=== PATIENT | female | born 1980 | race Caucasian/White ===

== ENCOUNTER 2019-10-27 12:43 | Outpatient (CLI) | payer BC, SELFPAY ==
--- NOTE | ~2019-10-27 | MMUS_ITS ---
EXAMINATION: MM diagnostic keturah BI w lary, US breast BI limited HISTORY: Palpable lump in the upper inner quadrant of the right breast. TECHNIQUE: Craniocaudal, mediolateral, and mediolateral oblique 3-D tomosynthesis images of the malu ts were performed and synthetic 2-D images were generated. CAD analysis was submitted and interpreted . High resolution limited bilateral breast ultrasound was performed. COMPARISON: 07/10/2015, 08/18/2012 BREAST PARENCHYMAL COMPOSITION: The breasts are heterogeneously dense, which may obscure small masses . FINDINGS: MAMMOGRAPHIC FINDINGS: Left breast: There is a 7 mm low-density, obscured mass in the middle third of the lower breast at th e 6:00 location 6 cm from the nipple. No suspicious calcification or architectural distortion are ann ntified. Right breast: No mammographic correlate is identified for the reported palpable lump of the upper inn er breast. Calcifications in the middle third of the upper outer quadrant of the breast 5 cm from the nipple aren't somewhat amorphous on the craniocaudal view and linear on the mediolateral view, consi stent with milk of calcium. ULTRASOUND: Left breast: There is a 5 mm x 3 mm oval, circumscribed, parallel, hypoechoic mass with no posterior features or internal vascularity at the 6:00 location 4 cm from the nipple. Masses with similar sonog raphic features measure 4 mm x 2 mm at the 6:00 location 2 cm from the nipple, 3 mm x 2 mm at the 6:0 0 location 5 cm from the nipple, and 5 mm x 2 mm at the 6:00 location 3 cm from the nipple. Right breast: There is a 4 mm x 2 mm oval, circumscribed, parallel, hypoechoic mass with no posterior features or internal vascularity at the 1:00 location 3 cm from the nipple. IMPRESSION: 1. Probably benign bilateral breast masses as detailed above including one in the area of the right b reast lump. 2. Recommend 6 month follow-up bilateral diagnostic mammogram and ultrasound. BI-RADS category 3, probably benign findings. Reviewed, dictated and finalized at location A. IMPRESSION: 1. Probably benign bilateral breast masses as detailed above including one in t he area of the right breast lump. 2. Recommend 6 month follow-up bilateral diagnostic mammogram and ultrasound. BI-RADS category 3, probably benign findings.
== END 2019-10-27 12:44 | disposition home or self-care (01) ==
LOC: ANHIMG 12:46
PROVIDERS: PCP Internal Medicine; Visit Provider Obstetrics & Gynecology
DX: N63.10 Unspecified lump in the right breast, unspecified quadrant (principal); R92.8 Other abnormal and inconclusive findings on diagnostic imaging of breast
CPT/HCPCS: 76642; 77062; 77066; G0279

== ENCOUNTER 2019-12-23 17:47 | Emergency (ER) | payer BC, SELFPAY ==
[2019-12-23 18:32] VITALS: BP 133/87; PULSE 85; RESP 18; TEMP 36.6; O2SAT 97
[2019-12-23] MEDS: MAG HYDROX/ALUMINUM HYD/SIMETH 30 ML, PHENobarb/HYOSCY/ATROPINE/SCOP 32.4 MG, LIDOCAINE... PO (18:53)
[2019-12-23] MEDS: ONDANSETRON HCL ODT 4 MG TABLET PO (18:53)
--- NOTE | 2019-12-23 19:13 | ED.ABDPAIN ---
HPI - Abdominal Pain General Chief Complaint: Abdominal Pain Stated Complaint: pain in upper abd Source: patient Mode of arrival: ambulatory Limitations: no limitations History of Present Illness HPI narrative: This is a 39-year-old female with history of reflux disease currently taking [id number] medication for reflux, presents with some increased epigastric abdominal discomfort with some nausea worse with food, currently there is no radiation of her pain nor of the lower abdominal pain no dysuria no fever or chills no chest pain or pressure no shortness of breath. MD elicited complaint: abdominal pain Onset (ago): day(s) Pain Consistency: intermittent Location: epigastric Severity: moderate Quality: fullness Radiation: epigastric Migration to: no migration Exacerbating factors: eating Related Data Home Medications Medication Instructions Recorded Confirmed duloxetine 60 mg PO DAILY 12/23/19 12/23/19 topiramate 25 mg PO DAILY 12/23/19 12/23/19 verapamil 180 mg PO DAILY 12/23/19 12/23/19 Allergies Allergy/AdvReac Type Severity Reaction Status Date / Time paroxetine Allergy Unknown rash Verified 06/17/15 09:59 sertraline Allergy Unknown rash Verified 06/17/15 09:59 Review of Systems Review of Systems: All systems reviewed & are unremarkable except as noted in HPI and below PMFSH Past Medical History Medical History GERD (gastroesophageal reflux disease) Family History Family History Other Acute myocardial infarction Family history of Alzheimer's disease Family history of anemia Family history of arthritis Family history of cardiovascular disease Family history of lung cancer Family history of malignant neoplasm Family history of obesity Family history of osteoporosis Hypertension Social History Social History Smoking status: Never smoker Alcohol intake: never Exam Const: General: cooperative, healthy appearing, comfortable, no acute distress and well developed HENMT: Head: normal to inspection Eyes: General: appearance normal, both eyes and all related structures Eyelids: eyelids normal Conjunctivae: conjunctivae normal Sclera: sclerae normal Pupils: Equal, round and reactive pupils present Neck: Neck: normal visual inspection, full ROM, no lymphadenopathy and no meningeal signs Chest: Chest palpation & inspection: normal inspection of the chest and normal palpation of entire chest wall Resp: Effort & Inspection: normal respiratory effort and able to speak in complete sentences Auscultation: clear to auscultation bilaterally Cardio: Jugular venous distension: no JVD Palpation: normal PMI Rate: regular rate Rhythm: regular rhythm Heart sounds: S1 normal heart sound present and S2 normal heart sound present GI: Inspection: normal to inspection and obesity GI Palp: Yes abdominal tenderness ( epigastric tenderness) Percussion: Yes normal to percussion Auscultation: normal bowel sounds Back/Spine/Pelvis: Back: no CVA tenderness Neuro: General: oriented to person, oriented to place, oriented to time and patient oriented x3 Psych: Appearance: grossly normal and well kempt Mental Status: mental status grossly normal Affect: normal affect Course Course Emergency Course: patient received a GI cocktail along with Zofran and her epigastric tenderness had subsided significantly. Vital Signs Vital signs: Vital Signs Temperature 36.6 C 12/23/19 18:32 Pulse Rate 85 12/23/19 18:32 Respiratory Rate 18 12/23/19 18:32 Blood Pressure 133/87 12/23/19 18:32 Pulse Oximetry 97 12/23/19 18:32 Temperature 36.6 C 12/23/19 18:32 Pulse Rate 85 12/23/19 18:32 Respiratory Rate 18 12/23/19 18:32 Blood Pressure 133/87 12/23/19 18:32 Pulse Oximetry 97 12/23/19 18:32 [facility]
[2019-12-23 19:16] VITALS: BP 138/104; PULSE 78; RESP 18; O2SAT 98
[2019-12-23] MEDS: PANTOPRAZOLE 40 MG TABLET PO (19:29)
== END 2019-12-23 19:31 | disposition home or self-care (01) ==
PROVIDERS: Emergency Provider Emergency Medicine; PCP Internal Medicine
DX: K21.9 Gastro-esophageal reflux disease without esophagitis (principal)
CPT/HCPCS: 99283; A9270

== ENCOUNTER 2019-12-24 07:50 | Observation (INO) | payer BC, SELFPAY ==
[2019-12-24] VITALS (7 sets, daily range): BP systolic 126–145; BP diastolic 81–95; PULSE 69–95; RESP 16–18; TEMP 36.2–36.7; O2SAT 98–100; BMI 38.0
--- NOTE | ~2019-12-24 | US_ITS ---
US venous doppler [facility] DATE: 12/25/2019 08:15 INDICATION: Splenic infarct TECHNIQUE: Real-time and color flow imaging and Doppler analysis of the veins of the lower extremitie s COMPARISON: None FINDINGS: The greater saphenous veins are patent. There is spontaneous and phasic flow and normal aug mentation and color flow signal and normal compression of the deep veins of both lower extremities. IMPRESSION: No evidence of deep venous thrombosis of the lower extremities Reviewed, dictated and finalized at Location [facility]. Reviewed, dictated and finalized at location A.
--- NOTE | ~2019-12-24 | CT_ITS ---
EXAMINATION: CTA chest PE protocol DATE: 12/25/2019 07:57 INDICATION: Splenic infarct. Past smoker. TECHNIQUE: Computed tomography angiography (CTA) of the chest was performed with 100 mL Omnipaque-350 intravenous contrast timed to evaluate the pulmonary arteries. Coronal maximum intensity projection 3D-reconstructions were created by the technologist. Automated exposure control and iterative reconst ruction technique were employed. Exam dose: 538.54 mGy-cm total exam DLP. COMPARISON: None. FINDINGS: There is moderate contrast enhancement of the pulmonary arteries and no evidence of pulmona ry embolism. No thoracic aortic aneurysm or dissection. Normal heart size. No pericardial or pleural effusion. No hilar or mediastinal mass lesion or lymphadenopathy. Small calcified right lower lobe pulmonary granuloma. Small calcified left lower lobe pulmonary granu melia. No pulmonary consolidation or pulmonary mass lesion is evident. Included skeletal structures are unremarkable. IMPRESSION: No evidence of pulmonary embolism Reviewed, dictated and finalized at [facility]. Reviewed, dictated and finalized at location A.
--- NOTE | ~2019-12-24 | CT_ITS ---
EXAMINATION: CT abdomen pelvis w con DATE: 12/24/2019 11:43 INDICATION: Abdominal pain TECHNIQUE: Computed tomography (CT) of the abdomen and pelvis was performed . with 100 mL Omnipaque-3 50 intravenous contrast. Automated exposure control and iterative reconstruction technique were emplo yed. The dose-length product was 1398.44 mGy-cm. COMPARISON: None FINDINGS: A couple 3-4 mm right lower lobe nodules heart size is normal. No pericardial or pleural effusion. Li tip, gallbladder pancreas, bilateral adrenal glands and left kidney are normal. Duplicated right heriberto l collecting system which appears to fuse at the level of the extrarenal pelvis. Small and more cauda l accessory right renal artery and vein supplying the lower pole moiety the right kidney. Geographic region of hypoperfusion along the cephalad aspect of the spleen consistent with splenic infarct. Von ls including the appendix are normal. Bladder, anteverted uterus and bilateral adnexa are normal. Low density likely contraceptive ring in the vaginal vault. No free intraperitoneal gas or fluid. No pat hologically enlarged abdominal or pelvic lymphadenopathy. IMPRESSION: 1. Segmental infarct of the spleen. 2. 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 Reviewed, dictated and finalized at location A.
[2019-12-24 08:17] LABS: Basophils Absolute Auto 0.1 K/mm3 (0.0-0.1); Basophils Percent Auto 0.7 % (0.2-1.2); Eosinophils Absolute Auto 0.2 K/mm3 (0-0.3); Eosinophils Percent Auto 2.4 % (0-4.4); Hematocrit 42.4 % (37.0-47.0); Hemoglobin 13.9 g/dL (12.0-15.0); Immature Granulocyte Absolute 0.02 K/mm3 (0.00-0.031); Immature Granulocyte Percent A 0.3 % (0-0.5); Lymphocytes Absolute Auto 1.78 K/mm3 (0.9-3.2); Lymphocytes Percent Auto 26.6 % (18.3-44.2); Mean Corpuscular HGB Conc 32.8 g/dl (32-36); Mean Corpuscular Hemoglobin 31.7 pg (26-34); Mean Corpuscular Volume 96.8 fl (80-100); Mean Platelet Volume 9.2 fl (7.4-10.4); Monocytes Absolute Auto 0.4 K/mm3 (0.1-0.6); Monocytes Percent Auto 5.2 % (2.6-8.5); Neutrophils Absolute Auto 4.3 K/mm3 (1.3-6.7); Neutrophils Percent Auto 64.8 % (45.5-73.1); Platelet Count Result 234 k/mm3 (150-375); Red Blood Count 4.38 M/mm3 (4.2-5.4); Red Cell Distribution Width 12.2 % (11.5-14.5); White Blood Count 6.7 K/mm3 (4.5-10.0)
[2019-12-24 08:22] LABS: Add Urine Microscopic? YES; Appearance Urine Cloudy (Clear); Bacteria Urine Trace /hpf; Bilirubin Urine Negative (Negative); Blood Urine Negative (Negative); Color Urine Yellow (Yellow); Glucose Urine UA Negative (Negative); Hyaline Casts Urine 20-29 /lpf; Ketones Urine Trace mg/dL (Negative); Leukocyte Esterase Ur Negative LEU/UL (Negative); Mucus Urine Heavy /lpf; Nitrate Urine Negative (Negative); Protein Urine 2+ mg/dL (Negative); Specific Grav Ur 1.026 (1.001-1.035); Squamous Epithelial Cell Urine Many /hpf (Few); Urobilinogen Urine Negative mg/dL (<2.0)
[2019-12-24] MEDS: SODIUM CHLORIDE 0.9% IV 1,000 ML 999 ML IV CONT (08:28)
[2019-12-24 08:29] LABS: Alanine Aminotransferase 19 U/L (4-35); Albumin Level 4.2 g/dL (3.5-5.1); Alkaline Phosphatase 83 U/L (38-126); Anion Gap 10 mmol/L (8-16); Aspartate Amino Transferase 26 U/L (14-36); Bilirubin,Total 0.4 mg/dL (0.2-1.3); Blood Urea Nitrogen 12 mg/dL (7-17); Calcium 9.3 mg/dL (8.4-10.2); Carbon Dioxide 18 mmol/L (22-30); Chloride 111 mmol/L (98-107); Estimated CRCL calculation 77 ml/min; Estimated Glomerular Filt Rate 55; Glucose 105 mg/dL (65-105); Lipase 79 U/L (23-300); Potassium 4.3 mmol/L (3.4-5.0); Sodium 139 mmol/L (137-145)
--- NOTE | 2019-12-24 08:40 | ED.ABDPAIN ---
HPI - Abdominal Pain General Chief Complaint: Abdominal Pain Stated Complaint: abd pain Time Seen by Provider: 12/24/19 08:06 Source: patient Mode of arrival: ambulatory Limitations: no limitations History of Present Illness HPI narrative: Patient is a 39-year-old female complaining of epigastric pain, burning, nonradiating 6 out of 10 worse after eating started 2 days ago. Patient was seen at another ER was diagnosed with reflux. Patient is nausea but denies any vomiting or diarrhea. Denies any chest pain, shortness of breath, fever or chills. MD elicited complaint: abdominal pain Related Data Home Medications Medication Instructions Recorded Confirmed duloxetine 60 mg PO DAILY 12/23/19 12/23/19 topiramate 25 mg PO DAILY 12/23/19 12/23/19 verapamil 180 mg PO DAILY 12/23/19 12/23/19 Allergies Allergy/AdvReac Type Severity Reaction Status Date / Time paroxetine Allergy Unknown rash Verified 12/24/19 07:54 sertraline Allergy Unknown rash Verified 12/24/19 07:54 Review of Systems Review of Systems: All systems reviewed & are unremarkable except as noted in HPI and below Constitutional: Constitutional: Denies body ache(s), Denies chills, Denies excessive sweating, Denies fatigue, Denies fever(s), Denies headache(s), Denies lethargy, Denies malaise, Denies weakness and Denies weight loss Eyes: Eyes: Denies blurry vision, Denies change in vision and Denies loss of vision ENT: Denies dizziness, Denies ear discharge, Denies headache(s), Denies lip swelling, Denies epistaxis, Denies nasal congestion, Denies neck pain, Denies throat swelling and Denies tongue swelling Cardiovascular: Cardiovascular: Denies chest pain, Denies chest pain at rest, Denies chest pain with activity, Denies diaphoresis, Denies rapid heart rate, Denies edema, Denies irregular heart rhythm, Denies lightheadedness, Denies palpitations, Denies dyspnea and Denies dyspnea on exertion Respiratory: Respiratory: Denies chest congestion, Denies cough, Denies hemoptysis, Denies dyspnea and Denies dyspnea on exertion Gastrointestinal: Gastrointestinal: Denies melena, Denies hematochezia, Denies diarrhea, Denies vomiting and Denies hematemesis Musculoskeletal: Musculoskeletal: Denies abnormal gait, Denies deformity, Denies joint swelling, Denies limited range of motion, Denies neck pain and Denies numbness Neurologic: Denies Abnormal speech present, Denies abnormal gait, Denies confusion, Denies dizziness, Denies headache(s), Denies focal weakness, Denies loss of vision, Denies numbness, Denies Other visual disturbances, Denies Sensory deficit (Neuro) and Denies weakness Psychiatric: Psychiatric: Denies confusion, Denies depression, Denies auditory hallucinations, Denies homicidal ideation and Denies suicidal ideation Endocrine: Endocrine: Denies cold intolerance, Denies excessive sweating, Denies fatigue, Denies heat intolerance and Denies palpitations Hematologic/Lymphatic: Hematologic/Lymphatic: Denies easy bleeding and Denies easy bruising Allergic/Immunologic: Allergic/Immunologic: Denies lip swelling, Denies throat swelling and Denies tongue swelling PMFSH Past Medical History Medical History GERD (gastroesophageal reflux disease) Family History Family History Other Acute myocardial infarction Family history of Alzheimer's disease Family history of anemia Family history of arthritis Family history of cardiovascular disease Family history of lung cancer Family history of malignant neoplasm Family history of obesity Family history of osteoporosis Hypertension Social History Social History Smoking status: Never smoker Alcohol intake: never Exam Const: General: cooperative, healthy appearing, comfortable, no acute distress, well developed, alert and awake; No confusion
[2019-12-24] MEDS: ONDANSETRON INJ 4 MG/2 ML VIAL IV PUSH ×3 (11:01→21:09)
[2019-12-24] MEDS: BELLADONNA ALK/PHENOB ELIX 10 ML, MAG HYDROX/ALUMINUM HYD/SIMETH 30 ML, LIDOCAINE HCL 2... PO (11:02)
[2019-12-24] MEDS: FAMOTIDINE 20 MG/2 ML VIAL (11:08)
--- NOTE | 2019-12-24 13:23 | ECG_ITS ---
Measurements Intervals [place] Rate: 71 P: 25 GA: 154 QRS: 9 QRSD: 86 T: -1 QT: 374 QTc: 409 Interpretive Statements SINUS RHYTHM BORDERLINE R WAVE PROGRESSION, ANTERIOR LEADS BORDERLINE T WAVE ABNORMALITY- INFERIOR LEADS BASELINE ARTIFACT- V2 BORDERLINE ECG Electronically Signed On 12-24-2019 19:29:45 CDT by Pete Hansen D.O.
[2019-12-24] MEDS: HYDROmorphone HCL INJ (*CRX) 1 MG/ML SYR 0.5 MG IV PUSH ×2 (14:00→21:09)
[2019-12-24] MEDS: ENOXAPARIN 120 MG/0.8 ML SYRINGE 110 MG SUB-Q (14:01)
--- NOTE | 2019-12-24 22:45 | PM.IMHP ---
H&P: HPI History of Present Illness Date/Time: 12/24/19 22:45 Chief complaint: Splenic Infarct Narrative: Lissette Guzman is a 39 year old female who has a history of hypertension and acid reflux. The patient has no prior history of any blood clots but her father's family has history of a clotting disorder. The patient lives a pretty sedentary life. 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 The patient stated that she has not been feeling well for about 2 weeks. She said she had a fever of 100.2. She was complaining of some back pain and swelling in her vaginal area. The patient went to her OBGYN and was given Diflucan. She is still having some swelling to her lymph nodes in her growing. The patient said she was checked out by her egg smeller and is supposed to have a follow-up. The patient stated when she had a fever she was checked for covid 19 but was found to be negative. She no longer has a fever. Her urine was checked and she was so she does not have a urine infection. The patient went to [facility] yesterday and was told that she has gastroesophageal reflux disease. The patient was started on omeprazole. The patient stated that yesterday she was eating breakfast with her cousins and she had zeng in a eggs and had severe pain in the gastric area on the left upper quadrant. She went home and tried to lay around but that did not resolve her pain at that time. That is why she went to [facility]. She was given a GI cocktail there and had some relief when she was thereby when she went home the pain began again and it was severe and her left upper quadrant. She had no nausea vomiting or diarrhea. She has no cough fever chills. No imaging was performed at [facility]. Abdominal pelvis CT was read as segmental infarct of the spleen. 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 The patient was given subcu Lovenox in the emergency room. She was given IV fluids as well. And another GI cocktail. She was given Pepcid x1. Patient initially was told that she has acid reflux. Date of service 12/24/2019. Review of Systems Review of Systems: All systems reviewed & are unremarkable except as noted in HPI and below Constitutional: Constitutional: Reports as per HPI and Reports no additional constitutional complaints Eyes: Eyes: Reports as per HPI and Reports no additional eye complaints ENT: Reports system reviewed and no additional complaints, except as documented and Reports Normal hearing present Cardiovascular: Cardiovascular: Reports no additional cardiovascular complaints Respiratory: Respiratory: Reports no additional respiratory complaints and Reports no additional respiratory complaints Gastrointestinal: Gastrointestinal: Reports as per HPI and Reports no additional gastrointestinal complaints Musculoskeletal: Musculoskeletal: Reports no additional musculoskeletal complaints Integumentary/Breasts: Skin/Breast: Reports system reviewed and no additional complaints, except as docu and Reports as per HPI Neurologic: Reports system reviewed and no additional complaints, except as documented, Reports as per HPI and Reports Normal hearing present Psychiatric: Psychiatric: Reports no additional psychiatric complaints and Reports as per HPI Endocrine: Endocrine: Reports no additional endocrine complaints Hematologic/Lymphatic: Hematologic/Lymphatic: Reports no additional hematologic/lymphatic complaints Allergic/Immunologic: Allergic/Immunologic: Reports no additional allergic/immunologic complaints [facility] Past Medical History Medical History (Updated 12/24/19 @ 22:59 by Lesli Gruber NP) Chronic GERD Generalized anxiety disorder GERD (gastroesophageal reflux disease) Hypertension Migraine Surgical History Surgical History (Updated 12/24/19 @ 22:55 by Lesli Gruber NP) H/O wisdom tooth extraction Family History Family History (Reviewed 12/23
[2019-12-24] MEDS: TOPIRAMATE 25 MG TABLET 50 MG PO (23:15)
[2019-12-24] MEDS: DULoxetine HCL 60 MG CAPSULE.DR PO (23:16)
[2019-12-24] MEDS: PANTOPRAZOLE 40 MG TABLET PO (23:16)
[2019-12-24] MEDS: VERAPAMIL HCL 180 MG TABLET ER PO (23:16)
--- NOTE | 2019-12-25 | ECHO_ITS ---
Patient Info Name: Lissette Guzman Age: 39 years : 1980 Gender: Female Ht: 65 in Wt: 228 lbs BSA: 2.23 m2 HR: 72 bpm BP: 124 / 77 mmHg Heart Rhythm: Sinus Rhythm Technical Quality: Good Exam Date: 12/25/2019 9:20 AM Exam Location: [facility] Patient Status: Inpatient Admit Date: 12/24/2019 Staff Ordering Physician: Lesli Gruber NP [employer]oltaic Designer: Tan Irving RDCS Attending Provider: Jagruti Woodard PA-C Referring Physician: Yasmani VIDES; Exam Type: CA echo doppler color flow Study Info Indications I10 - Essential (primary) hypertension Complete two-dimensional, color flow and Doppler transthoracic echocardiogram is performed. Strain analysis performed. History/Risk Factors Splenic infarct; family hx of blood clotting disorder, HTN. Summary 1. Complete two-dimensional, color flow and Doppler transthoracic echocardiogram is performed. 2. Normal examination. Left Ventricle Left ventricular chamber dimension is normal. Left ventricular systolic function is normal, estimated at 65-70%. The left ventricular diastolic function is normal. Right Ventricle Right ventricular chamber dimension is normal. Left Atria Left atrial chamber dimension is normal. Right Atria Right atrial chamber dimension is normal. Aortic Valve The aortic valve is normal. Pulmonic Valve The pulmonic valve is normal. Mitral Valve The mitral valve has normal leaflets. Tricuspid Valve The tricuspid valve leaflets are normal. Pericardium/Pleural The pericardium appears normal. Aorta The aortic root size at the sinus of Valsalva is normal. Left Ventricular Outflow Tract Name Value Normal LVOT 2D LVOT Diameter 1.8 cm LVOT Doppler LVOT Peak Gradient 9 mmHg LVOT Mean Gradient 4 mmHg LVOT VTI 26 cm LVOT VTI/AV VTI Ratio 0.8 LVOT Stroke Volume 63 ml LVOT CO 5.2 l/min LVOT CI 2.3 l/min/m2 Mitral Valve Name Value Normal MV Doppler MV Decel Starr 348 cm/s2 MV PHT 64 ms MV Area (PHT) 3.4 cm2 4.0-5.0 MV Diastolic Function MV E Peak Velocity 77 cm/s MV A Peak Velocity 71 cm/s MV E/A 1.1 MV Decel Time 221 ms MV Annular TDI MV E/e' (Septal) 6.8 <=8.0 MV E/e' (Lateral) 5.3 <=8.
[2019-12-25] MEDS: ENOXAPARIN 120 MG/0.8 ML SYRINGE 102 MG SUB-Q ×2 (00:39→12:54)
[2019-12-25 04:00] VITALS: BP 124/77; PULSE 86; RESP 18; TEMP 36.6; O2SAT 99
[2019-12-25] MEDS: HYDROcodone/acetaminophen (*CRX) 5-325 MG TABLET 1 TAB PO (04:05)
[2019-12-25 05:31] LABS: Basophils Absolute Auto 0.1 K/mm3 (0.0-0.1); Eosinophils Absolute Auto 0.2 K/mm3 (0-0.3); Eosinophils Percent Auto 2.9 % (0-4.4); Hematocrit 37.6 % (37.0-47.0); Hemoglobin 12.3 g/dL (12.0-15.0); Immature Granulocyte Absolute 0.02 K/mm3 (0.00-0.031); Immature Granulocyte Percent A 0.4 % (0-0.5); Lymphocytes Absolute Auto 1.97 K/mm3 (0.9-3.2); Lymphocytes Percent Auto 37.5 % (18.3-44.2); Mean Corpuscular HGB Conc 32.7 g/dl (32-36); Mean Corpuscular Hemoglobin 31.5 pg (26-34); Mean Corpuscular Volume 96.2 fl (80-100); Mean Platelet Volume 9.3 fl (7.4-10.4); Monocytes Absolute Auto 0.4 K/mm3 (0.1-0.6); Neutrophils Absolute Auto 2.7 K/mm3 (1.3-6.7); Neutrophils Percent Auto 51.2 % (45.5-73.1); Platelet Count Result 194 k/mm3 (150-375); Red Blood Count 3.91 M/mm3 (4.2-5.4); Red Cell Distribution Width 12.2 % (11.5-14.5); White Blood Count 5.3 K/mm3 (4.5-10.0)
[2019-12-25 05:44] LABS: Lactic Acid Reflex 0.5 mmol/L (0.7-2.1)
[2019-12-25 05:51] LABS: Alanine Aminotransferase 14 U/L (4-35); Albumin Level 3.6 g/dL (3.5-5.1); Alkaline Phosphatase 80 U/L (38-126); Anion Gap 8 mmol/L (8-16); Aspartate Amino Transferase 23 U/L (14-36); Bilirubin,Total 0.2 mg/dL (0.2-1.3); Blood Urea Nitrogen 6 mg/dL (7-17); Calcium 8.4 mg/dL (8.4-10.2); Carbon Dioxide 19 mmol/L (22-30); Chloride 111 mmol/L (98-107); Estimated CRCL calculation 80 ml/min; Estimated Glomerular Filt Rate > 60; Glucose 99 mg/dL (65-105); Magnesium 2.4 mg/dL (1.6-2.3); Potassium 3.7 mmol/L (3.4-5.0); Sodium 138 mmol/L (137-145)
--- NOTE | 2019-12-25 07:40 | PC.NURSE ---
Patient to CT.
--- NOTE | 2019-12-25 08:21 | PC.NURSE ---
Patient return from CT scan.
[2019-12-25] MEDS: ACETAMINOPHEN 325 MG TABLET 650 MG PO (08:45)
[2019-12-25] MEDS: TOPIRAMATE 25 MG TABLET 50 MG PO ×2 (09:35→17:56)
[2019-12-25] MEDS: traMADol HCL (*CRX) 25 MG TABLET PO (12:53)
[2019-12-25 14:00] VITALS: BP 128/75; PULSE 77; RESP 19; TEMP 36.6; O2SAT 100
--- NOTE | 2019-12-25 14:54 | PM.IMPN ---
Progress Note: A&P Assessment and Plan (1) Splenic infarction: Code(s): D73.5 - Infarction of spleen Status: Acute Assessment and Plan: CT a/p showed segmental infarct of the spleen. She had left-sided abdominal pain that has improved. She has no history of infarct or blood clots, but noted her father has a history of clotting disorder. Hematology is following and recommendations are appreciated. She is currently on therapeutic lovenox which was started on 12/23. Continue at this time. Plan to switch to oral anticoagulant if okay with Dr. Jimenez. Will ask care coordination for assistance with insurance approval. Given infarct, CTA performed to rule out PE was negative and venous doppler to rule out DVT was also negative. Echo is pending and will await results. Analgesics as needed for pain (2) Hypertension: Code(s): I10 - Essential (primary) hypertension Status: Acute Assessment and Plan: Blood pressure reviewed today and stable at 124/77. Continue verapamil (3) Chronic GERD: Code(s): K21.9 - Gastro-esophageal reflux disease without esophagitis Status: Chronic Assessment and Plan: Asymptomatic. Her discomfort was initially felt to be related to GERD and she received GI cocktail x2 with no change in symptoms. She does not feel that any of her symptoms were related to GERD. Continue protonix (4) Migraine: Code(s): G43.909 - Migraine, unspecified, not intractable, without status migrainosus Status: Chronic Assessment and Plan: Complains of 5/10 frontal headache. Not relieved by tylenol or norco. Will try tramadol for symptomatic improvement Continue topiramate Monitor symptoms closely. (5) Generalized anxiety disorder: Code(s): F41.1 - Generalized anxiety disorder Status: Chronic Assessment and Plan: Stable. Continue cymbalta Subjective Date/time seen: 12/25/19 14:54 Interval history: Date of service: 12/25/2019 Lissette Guzman is a 39 year old female with a history of HTN, GERD, and migraines who is seen in follow up for splenic infarction. She reports she is feeling better today. Her abdominal pain has nearly resolved and she reports 0/10 pain. At this time, her biggest complaint is a frontal headache which she rates as 5/10. She has a history of migraines but notes this is different than her usual migraines. She denies photophobia, phonophobia, visual changes, or sinus congestion. She thought maybe the headache was caused by pain medication because onset occurred shortly after receiving dilaudid. Otherwise, she feels well. She denies nausea, vomiting, fever, or chills. Her appetite has been fair. She denies SOB, cough, chest pain, or palpitations. Review of Systems Review of Systems: All systems reviewed & are unremarkable except as noted in HPI and below Exam Narrative: Exam Narrative: Ms. Guzman is a well-nourished, well-appearing 39-year-old female who is lying semi-recumbent in bed. She appears comfortable and is in NARD. HR 86, BP 124/77, RR 18, T 97.9, 99% on room air Neuro: awake, alert and oriented x4, speech clear, no focal neuro deficits noted, sensation intact HEENMT: normocephalic, atraumatic, EOMI, sclerae anicteric, moist oral mucosa, tongue midline, nares patent Neck: supple, no lymphadenopathy Respiratory: clear to auscultation bilaterally, nonlabored breathing Cardio: regular rate, regular rhythm with S1-S2 Abdomen: nondistended, normoactive bowel sounds, soft, nontender to palpation, no rigidity or guarding Extremities: no edema, erythema, cyanosis, clubbing, or tenderness to palpation, DP pulses 2+ bilaterally Skin: no rashes or lesions, warm and dry Psych: appropriate mood and affect, judgment and insight intact Objective Data Vital Signs Vital Signs: Vital Signs - 24 hr 12/24/19 15:14 12/24/19 15:43 12/24/19 20:00 Temperature 98.1 F 97.7 F 97.5 F L
--- NOTE | 2019-12-25 16:51 | PDONCCN ---
HPI - Date of Consult Date/Time: 12/25/19 16:51 Requesting Physician: Jagruti Woodard PA-C Primary Care Provider: Jd Alaniz MD - Consult Narrative Reason for consult: Hypercoagulable state Narrative: Lissette Guzman is a 39 year old female with no prior history of thromboembolic events. Patient developed sudden onset of left lower quadrant abdominal pain. According the patient she went to the restaurant and after eating food later in the day she had all of severe left lower quadrant pain 10/10 in severity without any radiation. She had some nausea without any fevers and chills. Patient came in is the ER. Initially she went to the [facility] where she was given GI cocktail for possible GI upset. Her pain remains unchanged. She came to [facility] where CT scan was performed that showed splenic infarction. She was started on anticoagulation therapy with improvement did in her pain control. She denies any chest pain. Denies any lack pain and swelling. Patient was on control pill which has been discontinued. She denies any previous history of thromboembolic events. She also denies any family history of blood clots. Patient is living a sedentary lifestyle and working from the home. Review of Systems - Review of Systems All systems reviewed & are unremarkable except as noted in HPI and bel - Neurologic Reports system reviewed and no additional complaints, except as documented, Reports hearing normal, Denies abnormal speech, Denies abnormal gait, Denies confusion, Denies headache(s), Denies focal weakness, Denies loss of vision, Denies numbness, Denies other visual disturbances, Denies sensory deficit, Denies weakness [facility] Medical History: Medical History (Last Updated 12/24/19 @ 22:55 by Lesli Gruber NP) Chronic GERD Generalized anxiety disorder GERD (gastroesophageal reflux disease) Hypertension Migraine Surgical History: Surgical History (Last Updated 12/24/19 @ 22:55 by Lesli Gruber NP) H/O wisdom tooth extraction Family History: Family History (Last Reviewed 12/24/19 @ 22:56 by Lesli Gruber NP) Mother Acute myocardial infarction Hypertension Father Hypertension Blood clotting disorder - Social History Social History: Social History (Last Updated 12/24/19 @ 22:57 by Lesli Gruber NP) Gender Identity: Gender identity (if verbalized by the patient): Female Alcohol Use: Alcohol intake: never Substance Use: Substance use: never Substance use type: does not use Others: Spiritual care concerns: No Living Arrangements: Living arrangements: alone Oppucation/Education: Occupation/Education: occupation Smoking Status: Smoking status: Former smoker Tobacco type: cigarettes Smoking Pack-years: Smoking packs per day: 1 Smoking cigarettes per day: 20.0 Years smoked: 15 Smoking pack-years: 15.00 Meds Home Medications Medication Instructions Recorded Confirmed Type duloxetine 60 mg PO HS 12/23/19 12/24/19 History pantoprazole [Protonix] 40 mg PO HS #14 tablet 12/23/19 12/24/19 Rx topiramate 50 mg PO BID 12/23/19 12/24/19 History verapamil 180 mg PO HS 12/23/19 12/24/19 History omeprazole magnesium [Acid Director Enterprise Sales 20 mg PO DAILY 12/24/19 12/24/19 History (omeprazole)] Allergies Allergy/AdvReac Type Severity Reaction Status Date / Time paroxetine Allergy Unknown rash Verified 12/24/19 16:01 sertraline Allergy Unknown rash Verified 12/24/19 16:01 Results - Labs CBC & Chem 7: 12/25/19 04:57 12/25/19 04:57 Labs: Short CBC 12/25/19 Range/Units 04:57 WBC 5.3 (4.5-10.0) K/mm3 Hgb 12.3 (12.0-15.0) g/dL Hct 37.6 (37.0-47.0) % Plt Count 194 (150-375) k/mm3 BMP 12/25/19 04:57 Sodium 138 Potassium 3.7 Chloride 111 H Carbon Dioxide 19 L BUN 6 L D Creatinine 1.00 Glucose 99 Calcium 8.4 Liver Function
[2019-12-25] MEDS: PANTOPRAZOLE 40 MG TABLET PO (20:53)
[2019-12-25] MEDS: VERAPAMIL HCL 180 MG TABLET ER PO (20:53)
[2019-12-25] MEDS: DULoxetine HCL 60 MG CAPSULE.DR PO (20:53)
[2019-12-25 21:39] VITALS: BP 118/59; PULSE 80; RESP 16; TEMP 36.7; O2SAT 97
[2019-12-26] MEDS: ENOXAPARIN 120 MG/0.8 ML SYRINGE 102 MG SUB-Q ×2 (00:01→10:33)
[2019-12-26 05:34] VITALS: BP 121/69; PULSE 77; RESP 16; TEMP 36.1; O2SAT 100
[2019-12-26 06:03] LABS: Anion Gap 7 mmol/L (8-16); Blood Urea Nitrogen 7 mg/dL (7-17); Calcium 8.8 mg/dL (8.4-10.2); Carbon Dioxide 22 mmol/L (22-30); Chloride 109 mmol/L (98-107); Estimated CRCL calculation 73 ml/min; Estimated Glomerular Filt Rate 55; Glucose 92 mg/dL (65-105); Potassium 4.1 mmol/L (3.4-5.0); Sodium 138 mmol/L (137-145)
[2019-12-26] MEDS: TOPIRAMATE 25 MG TABLET 50 MG PO (06:07)
[2019-12-26] MEDS: ACETAMINOPHEN 325 MG TABLET 650 MG PO (06:08)
--- NOTE | 2019-12-26 11:04 | PM.DS ---
DS: Admitting Diagnosis Admitting Diagnosis Admitting Diagnosis: Splenic Infarct DS: Discharge Diagnosis Discharge Diagnosis (1) Splenic infarction: Code(s): D73.5 - Infarction of spleen Status: Acute Assessment and Plan: She presented with left-sided abdominal pain. CT a/p showed segmental infarct of the spleen. She was seen by mold cleaner Dr. Jimenez. She was anticoagulated with therapeutic Lovenox during her stay and will transition to PO Eliquis BID upon discharge. HAS-BLED score is 0. We discussed risks of bleeding associated with this medication and she understands and agrees to proceed. Analgesics provided for LUQ pain which resolved. She will follow up in [address] Jimenez for repeat labs and imaging. (2) Hypercoagulable state: Code(s): D68.59 - Other primary thrombophilia Status: Acute Assessment and Plan: She has no history of thromboembolic events, but noted her father has a history of clotting disorder. Patient reports sedentary lifestyle, is obese, and is on estrogen contraceptives. Given splenic infarct, CTA performed to rule out PE was negative and venous doppler to rule out DVT was also negative. Echo was normal with no evidence of thrombus. She will follow up with Dr. Jimenez to have hypercoagulable workup performed in his office. (3) Hypertension: Code(s): I10 - Essential (primary) hypertension Status: Acute Assessment and Plan: Blood pressures monitored daily and remained well controlled. Continue verapamil (4) Chronic GERD: Code(s): K21.9 - Gastro-esophageal reflux disease without esophagitis Status: Chronic Assessment and Plan: Asymptomatic. Her discomfort was initially felt to be related to GERD and she received GI cocktail x2 with no improvement in symptoms. She does not feel that any of her symptoms were related to GERD. She was given protonix during her stay. Continue omeprazole at home. (5) Migraine: Code(s): G43.909 - Migraine, unspecified, not intractable, without status migrainosus Status: Chronic Assessment and Plan: On 12/24, she complained of 5/10 frontal headache which was not relieved by tylenol or norco. Pain improved with tramadol and after taking a warm shower and resting. She is on daily topirimate for migraines which she should continue. (6) Generalized anxiety disorder: Code(s): F41.1 - Generalized anxiety disorder Status: Chronic Assessment and Plan: Stable. Continue cymbalta (7) control counseling: Code(s): Z30.09 - Encounter for other general counseling and advice on contraception Status: Acute Assessment and Plan: Patient currently using Nuva-Ring for control. This was discontinued due to risk with estrogen products. She was due to remove her vaginal ring on 12/25 and start her period. I spoke with Dr. Capone, her SMOKING TOBACCO PACKING MACHINE HAND, via phone who recommended that the patient continue without the vaginal ring for the remainder of the week and follow up in his office in 1 week to discuss further control options without estrogen. Discussed with the patient who understands and agrees. DS: Summary Hospital Course Reason for hospitalization: LUQ pain Hospital Course: Date of admission: 12/24/2019 Date of discharge: 12/26/2019 Lissette Guzman is a 39 year old female with a history of HTN, migraine, and GERD who presented to the emergency department on 12/24/2019 with complaints of 10/10 pain in her LUQ and epigastric region. She had previously been evaluated at [facility] two times for such pain at which time it was thought to be related to GERD and she received GI cocktail x2 with no improvement in symptoms. Her pain persisted therefore she arrived at [facility]. At presentation, AVSS, CBC wnl, electrolytes stable with creatinine mildly elevated at 1.1, UA clear, and CT a/p showed segmental infarct of the spleen. She was adm
[2019-12-28 04:30] LABS: Hexagonal Phase Confirm Weak Positive (Negative)
[2019-12-28 05:00] LABS: Lupus dRVVT 1:1 Mix Interpreta Not Indicated; Lupus dRVVT Screen 34 sec (<=45); PTT-LA Screen 44 sec (<=40)
== END 2019-12-26 14:10 | disposition home or self-care (01) ==
LOC: ANHED 13:39 → ANH2MED 14:35
PROVIDERS: Nurse Practitioner; Physician Assistant; Admitting Provider Internal Medicine; Emergency Provider Emergency Medicine; PCP Internal Medicine; Visit Provider Family Medicine
DX: D73.5 Infarction of spleen (principal); G43.909 Migraine, unspecified, not intractable, without status migrainosus; F41.9 Anxiety disorder, unspecified; E66.9 Obesity, unspecified; I10 Essential (primary) hypertension; K21.9 Gastro-esophageal reflux disease without esophagitis; Z23 Encounter for immunization; Z87.891 Personal history of nicotine dependence; Z68.38 Body mass index [BMI] 38.0-38.9, adult; Z79.899 Other long term (current) drug therapy
CPT/HCPCS: 36415; 71275; 74177; 80048; 80053; 81001; 81025; 81291; 82728; 83605; 83690; 83735; 84311; 84443; 85025; 85613; 85730; 87086; 87088; 90471; 90653; 93005; 93306; 93970; 96372; 96374; 96375; 96376; 99285; A9270; G0008; G0378; J1170; J1650; J2405; J7030; Q9967

== ENCOUNTER 2020-03-08 08:33 | Outpatient (CLI) | payer BC, SELFPAY ==
--- NOTE | ~2020-03-08 | CT_ITS ---
EXAMINATION: CT abdomen w con DATE: 03/08/2020 09:06 INDICATION: Splenic infarct TECHNIQUE: Computed tomography (CT) of the abdomen was performed with 100 cc Omnipaque 350 intravenou s contrast. Automated exposure control and iterative reconstruction technique were employed. Exam dos e: 877.07 mGy-cm total exam DLP. COMPARISON: 12/24/2019 CT abdomen pelvis FINDINGS: A couple of small likely benign pleura-based opacities measuring less than 3 mm are noted i n the left lower lobe, stable since 12/24/2019. Very small pleural-based opacity at the middle lobe, stable since 12/24/2019. There is a 4 mm pleural-based likely benign opacity in the posteromedial right lower lobe, stable sin ce 12/24/2019. There is a 3.5 mm stable nodular density in the right lower lobe (series 4 image 20), unchanged since 12/24/2019. These findings are all stable and likely benign. No infiltrate or consolidation or new pulmonary mass lesion is noted in the included lower lungs. Normal heart size. No pericardial or pleural effusion. The liver, gallbladder, bile ducts, pancreas and pancreatic duct as well as adrenal glands appear nor mal. The lucency at the superolateral aspect of the spleen on 12/24/2019 has considerably diminished in size, consistent with benign process, possibly splenic hematoma or infarct. 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 No renal mass lesion or urinary tract calculus or hyd roureteronephrosis is evident. Normal caliber of the abdominal aorta. No intraperitoneal or retroperitoneal or pelvic mass lesion or adenopathy or ascites. Normal appendix. No bowel obstruction, bowel wall thickening, pneumatosis or intraperitoneal free air is detected. Included skeletal structures are unremarkable. IMPRESSION: Considerably diminished size of hypodense lesion at superolateral aspect of spleen since 12/24/2019, suggesting this may have been an intrasplenic hematoma or infarct. Reviewed, dictated and finalized at [facility]. Reviewed, dictated and finalized at location B. [employer] IMPRESSION: Considerably diminished size of hypodense lesion at superolateral aspect of spleen since 12/24/2019, suggesting this may have been an intraspleni c hematoma or infarct.
[2020-03-08 09:00] LABS: Estimated Glomerular Filt Rate 55
== END 2020-03-08 08:34 | disposition home or self-care (01) ==
LOC: ANHIMG 08:36
PROVIDERS: PCP Internal Medicine; Visit Provider Internal Medicine Hematology & Oncology
DX: D73.5 Infarction of spleen (principal)
CPT/HCPCS: 74160; Q9967

== ENCOUNTER 2020-03-18 10:10 | Outpatient (CLI) | payer BC, SELFPAY ==
[2020-03-20 03:09] LABS: Lupus dRVVT 1:1 Mix Interpreta Not Indicated; Lupus dRVVT Screen 39 sec (<=45); PTT-LA Screen 29 sec (<=40)
[2020-03-20 20:39] LABS: Antithrombin III Activity 105 % normal (80-135)
[2020-03-22 13:55] LABS: Homocysteine 13.6 umol/L (<10.4)
== END 2020-03-18 10:11 | disposition home or self-care (01) ==
LOC: ANHLAB 10:11
PROVIDERS: PCP Internal Medicine; Visit Provider Internal Medicine Hematology & Oncology
DX: D73.5 Infarction of spleen (principal)
CPT/HCPCS: 36415; 83090; 85300; 85303; 85306; 85613; 85730; 86146

== ENCOUNTER 2020-06-10 11:48 | Outpatient (CLI) | payer BC, SELFPAY ==
--- NOTE | ~2020-06-10 | MMUS_ITS ---
EXAMINATION: MM diagnostic keturah BI w lary, US breast BI limited HISTORY: Follow-up bilateral breast masses TECHNIQUE: Additional 3-D tomosynthesis images of the breasts were performed and synthetic 2-D images were generated. CAD analysis was submitted and interpreted. High resolution limited bilateral breast ultrasound was performed. COMPARISON: Comparison to multiple prior studies sequentially, with oldest reviewed study dated 07/09. BREAST PARENCHYMAL COMPOSITION: The breasts are heterogenously dense, which may obscure small masses. FINDINGS: MAMMOGRAPHIC FINDINGS: There are stable benign-appearing bilateral breast calcifications. No new masses, calcifications or a rchitectural distortion to suggest malignancy. ULTRASOUND: Right breast ultrasound: At 1:00 near the nipple there is an oval circumscribed hypoechoic mass with parallel orientation, no significant posterior features or internal vascularity measuring 5 x 3 x 4 m m, likely benign. At 2:00 near the nipple there is a 7 mm cyst. Left breast ultrasound: At 6:00, 1 cm from the nipple, there is a cluster of microcysts measuring up to 5 mm in aggregate. At 6:00, 1 cm from the nipple, there is an oval circumscribed hypoechoic mass w ith parallel orientation, no posterior features or internal vascularity measuring up to 4 mm, likely benign. At 5:00, 1 cm from the nipple, there is an oval hypoechoic mass with slightly irregular princess ns measuring up to 5 mm. No internal vascularity or posterior features. This may represent a benign i ntramammary lymph node or cluster of microcysts. At 4:00, 1 cm from the nipple, there is an oval hypo echoic mass with echoes and heterogeneous internal appearance measuring up to 8 mm. No posterior feat ures or internal vascularity. IMPRESSION: 1. Slightly irregular shaped hypoechoic 8mm mass of the left breast at 4:00, 1 cm from the nipple. 2. Ultrasound-guided left breast biopsy recommended. BI-RADS category 4, suspicious findings. Reviewed, dictated and finalized at location [facility]. IMPRESSION: 1. Slightly irregular shaped hypoechoic 8mm mass of the left breast at 4:00, 1 cm from the nipple. 2. Ultrasound-guided left breast biopsy recommended. BI-RADS category 4, suspicious findings.
== END 2020-06-10 11:49 | disposition home or self-care (01) ==
LOC: ANHIMG 11:51
PROVIDERS: PCP Internal Medicine; Visit Provider Obstetrics & Gynecology
DX: N63.23 Unspecified lump in the left breast, lower outer quadrant (principal); N60.02 Solitary cyst of left breast; N63.12 Unspecified lump in the right breast, upper inner quadrant; N60.01 Solitary cyst of right breast
CPT/HCPCS: 76642; 77062; 77066; G0279

== ENCOUNTER 2020-06-17 08:07 | Outpatient (CLI) | payer BC, SELFPAY ==
[2020-06-19 20:03] LABS: APC Ratio 4.5 ratio (>=2.1)
[2020-06-20 12:41] LABS: Homocysteine 10.3 umol/L (<10.4)
== END 2020-06-17 08:08 | disposition home or self-care (01) ==
PROVIDERS: PCP Internal Medicine; Visit Provider Internal Medicine Hematology & Oncology
DX: D73.5 Infarction of spleen (principal)
CPT/HCPCS: 36415; 83090; 85307

== ENCOUNTER 2020-06-22 13:43 | Emergency (ER) | payer BC, SELFPAY ==
--- NOTE | ~2020-06-22 | US_ITS ---
EXAMINATION:US venous doppler LE BI INDICATION:Leg swelling TECHNIQUE: Multiple grayscale, color flow and Doppler images of the right and left lower extremity de ep venous systems were obtained and reviewed. COMPARISON:No prior studies for comparison. FINDINGS: The common femoral, superficial femoral and popliteal veins demonstrate normal respiratory variation, augmentation and compressibility. Color flow is also seen within the posterior tibial, pe roneal, greater saphenous and profunda veins. IMPRESSION: 1: No lower extremity deep venous thrombosis. Reviewed, dictated and finalized at location A.
[2020-06-22 13:45] VITALS: BP 144/99; PULSE 91; RESP 17; TEMP 35.8; O2SAT 100
[2020-06-22 13:59] VITALS: BP 150/88; PULSE 90; RESP 18; O2SAT 100
[2020-06-22 14:17] LABS: Basophils Absolute Auto 0.1 K/mm3 (0.0-0.1); Basophils Percent Auto 0.9 % (0.2-1.2); Eosinophils Absolute Auto 0.3 K/mm3 (0-0.3); Hemoglobin 12.8 g/dL (12.0-15.0); Immature Granulocyte Absolute 0.02 K/mm3 (0.00-0.031); Immature Granulocyte Percent A 0.3 % (0-0.5); Lymphocytes Absolute Auto 2.11 K/mm3 (0.9-3.2); Mean Corpuscular HGB Conc 31.2 g/dl (32-36); Mean Corpuscular Hemoglobin 30.4 pg (26-34); Mean Corpuscular Volume 97.4 fl (80-100); Mean Platelet Volume 9.2 fl (7.4-10.4); Monocytes Absolute Auto 0.5 K/mm3 (0.1-0.6); Monocytes Percent Auto 7.9 % (2.6-8.5); Neutrophils Absolute Auto 3.6 K/mm3 (1.3-6.7); Neutrophils Percent Auto 53.9 % (45.5-73.1); Platelet Count Result 206 k/mm3 (150-375); Red Blood Count 4.21 M/mm3 (4.2-5.4); Red Cell Distribution Width 12.8 % (11.5-14.5); White Blood Count 6.6 K/mm3 (4.5-10.0)
--- NOTE | 2020-06-22 14:24 | ED.LOWEXIN ---
HPI - Extremity Injury (Lower) General Chief Complaint: Extremity Problem,Nontraumatic Stated Complaint: Possible Blood Clots Time Seen by Provider: 06/22/20 13:55 Source: patient Mode of arrival: ambulatory Limitations: no limitations History of Present Illness HPI Narrative: This is a 40 year old female who presents for evaluation of bilateral leg pain. She reports she was in [place] last week on vacation. She states her legs got extremely sunburned. She developed swelling and pain to her feet and legs so she was worried she may have a blood clot. Her swelling has resolved but she continues to have pain in her calves when she walks. She was assessed by her PCP yesterday because she thought she had cellulitis. She denies sob. She states she had brief episode of left chest pain but it has resolved. She states her father has history of blood clots. She was diagnosed with a splenic infarct a few months ago so she is concerned about her risk for blood clots. Related Data Home Medications Medication Instructions Recorded Confirmed duloxetine 60 mg PO HS 12/23/19 12/24/19 topiramate 50 mg PO BID 12/23/19 12/24/19 verapamil 180 mg PO HS 12/23/19 12/24/19 omeprazole magnesium [Acid Material Preparation Worker 20 mg PO DAILY 12/24/19 12/24/19 (omeprazole)] aspirin 81 mg tablet,delayed 81 mg PO DAILY 06/13/20 release Allergies Allergy/AdvReac Type Severity Reaction Status Date / Time paroxetine Allergy Unknown rash Verified 06/22/20 14:02 sertraline Allergy Unknown rash Verified 06/22/20 14:02 Review of Systems Review of Systems: All systems reviewed & are unremarkable except as noted in HPI and below PMFSH Past Medical History Medical History (Updated 06/22/20 @ 16:24 by Love Shepard MD) Chronic GERD Generalized anxiety disorder GERD (gastroesophageal reflux disease) Hypertension Migraine Surgical History Surgical History (Updated 12/25/19 @ 16:56 by Gavin Jimenez MD) H/O wisdom tooth extraction Family History Family History (Updated 06/13/20 @ 16:03 by Concepcion Rogers CMA) Mother Acute myocardial infarction Hypertension Father Hypertension Blood clotting disorder Grandparent Heart disease Social History Social History (Updated 06/13/20 @ 16:14 by Concepcion Rogers CMA) Social History: the patient lives home alone with her 2 dogs. She desires to have her mother is her durable power civil rights attorney for healthcare. The patient desires to be a full code. She has never or had any children. 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 She is a former smoker. No alcohol marijuana or illicit drugs Smoking packs per day: 1 Smoking cigarettes per day: 20.0 Years smoked: 15 Smoking pack-years: 15.00 Smoking status: Former smoker Tobacco type: cigarettes Alcohol intake: never Substance use: never Substance use type: does not use Gender identity (if verbalized by the patient): Female Spiritual care concerns: No Exam Const: General: no acute distress and alert Orientation/consciousness: patient oriented x3 Eyes: EOM: EOMs intact bilaterally Chest: Chest palpation & inspection: normal inspection of the chest Resp: Effort & Inspection: normal respiratory effort and no retractions Auscultation: clear to auscultation bilaterally Cardio: Rate: regular rate Rhythm: regular rhythm Heart sounds: no murmurs Skin: Other: patches of erythema to bilateral ankles that is likely part of sunburn Neuro: General: patient oriented x3 and moves all extremities Extrem: General: no pedal edema Other: no leg swelling Psych: Mental Status: mental status grossly normal Affect: normal affect Course Reevaluation(s) Reevaluation #1: I discussed with patient that dopplers were negative for dvt. She states she was prescribed medication for cellulitis yesterday and she will continue Date: 06/22/20 Time: 16:22 Vital Signs Vital signs: Vital Signs
[2020-06-22 14:28] LABS: Alanine Aminotransferase 18 U/L (4-35); Alkaline Phosphatase 65 U/L (38-126); Anion Gap 3 mmol/L (8-16); Aspartate Amino Transferase 24 U/L (14-36); Bilirubin,Total 0.2 mg/dL (0.2-1.3); Blood Urea Nitrogen 15 mg/dL (7-17); Calcium 8.7 mg/dL (8.4-10.2); Carbon Dioxide 25 mmol/L (22-30); Chloride 110 mmol/L (98-107); Estimated CRCL calculation 76 ml/min; Estimated Glomerular Filt Rate 55; Glucose 87 mg/dL (65-105); Potassium 4.4 mmol/L (3.4-5.0); Sodium 138 mmol/L (137-145)
[2020-06-22 14:42] LABS: INR 0.9
[2020-06-22 14:43] LABS: Partial Thromboplastin Time 24.9 SECONDS (22.3-36.8)
[2020-06-22 16:32] VITALS: BP 148/87; PULSE 88; RESP 17; O2SAT 98
== END 2020-06-22 16:36 | disposition home or self-care (01) ==
PROVIDERS: Emergency Provider General Practice; PCP Internal Medicine
DX: M79.662 Pain in left lower leg (principal); M79.661 Pain in right lower leg; K21.9 Gastro-esophageal reflux disease without esophagitis; I10 Essential (primary) hypertension; Z87.891 Personal history of nicotine dependence
CPT/HCPCS: 36415; 80053; 85025; 85610; 85730; 93970; 99284

== ENCOUNTER 2020-07-11 10:33 | Outpatient (CLI) | payer BC, SELFPAY ==
--- NOTE | ~2020-07-11 | MMUS_ITS ---
EXAMINATION: US breast biopsy LT w image, MM post biopsy invasive LT DATE: 07/11/2020 12:10 (accession [id number]), 07/11/2020 12:02 (accession [id number]) INDICATION: Indeterminate mass at the 4:00 location of the left breast. Ultrasound-guided core biopsy is requested to evaluate for malignancy. TECHNIQUE AND FINDINGS: The risks and potential benefits of the procedure were discussed with the patient including bleeding and infection. A time out was performed. The skin of the left breast was prepared and draped in usual sterile fashion. 1% lidocaine was used for superficial anesthesia. 1% lidocaine with epinephrine was used for deep anesthesia. A vacuum-assisted biopsy gun needle was advanced through to the outer edge of the region of interest from a lateral approach utilizing sonographic guidance. Three vacuum core biopsies were attempted and on each of the three attempts, the vacuum device failed. A 14-gauge core biopsy was then obtained th rough the lesion. After the core biopsy, the lesion was not clearly identified and a tissue marker wa s placed at the biopsy site. Hemostasis was achieved. A sterile bandage was applied. The patient tolerated procedure well and there was no evidence of immediate complication. The patient was given verbal instructions to return to the Emergency Department in the event of severe breast pa in or rapid breast enlargement. A two view left breast mammogram was obtained to document tissue stacy er clip placement. IMPRESSION: 1. Left breast mass biopsy with tissue marker placement. Reviewed, dictated and finalized at location [facility]. IMPRESSION: 1. Left breast mass biopsy with tissue marker placement.
== END 2020-07-11 10:34 | disposition home or self-care (01) ==
PROVIDERS: PCP Internal Medicine; Visit Provider Surgery
DX: R92.8 Other abnormal and inconclusive findings on diagnostic imaging of breast (principal)
CPT/HCPCS: 19083; 88305; A4648

== ENCOUNTER 2020-10-22 12:35 | Outpatient (CLI) | payer BC, SELFPAY ==
--- NOTE | ~2020-10-22 | MMUS_ITS ---
EXAMINATION: MM diagnostic keturah BI w lary, US breast BI limited HISTORY: Palpable lumps at the 12:00 location in the right breast and the 10:00 location of the left breast TECHNIQUE: Craniocaudal, mediolateral, and mediolateral oblique 3-D tomosynthesis images of the breas ts were performed and synthetic 2-D images were generated. CAD analysis was submitted and interpreted . High resolution limited bilateral breast ultrasound was performed. COMPARISON: 06/10/2020, 10/19/2019, 07/10/2015, 08/26/2012 BREAST PARENCHYMAL COMPOSITION: The breasts are heterogeneously dense, which may obscure small masses . FINDINGS: MAMMOGRAPHIC FINDINGS: No mammographic correlate is identified for the reported palpable abnormality of either breast. There are bilateral breast masses and calcifications without suspicious interval change. No new mass or schultz spicious architectural distortion are identified. ULTRASOUND: There is a 9 mm x 3 mm oval, circumscribed, parallel, complex cystic and solid mass in the left breas t at the 10:00 location 2 cm from the nipple with no posterior features or internal vascularity corre sponding to the palpable abnormality of concern. There is a 5 mm x 3 mm oval, circumscribed, parallel , hypoechoic mass with thin internal septation at the 12:00 location near the nipple in the right heather ast corresponding to the palpable abnormality of concern. IMPRESSION: 1. Probably benign bilateral breast masses. 2. Recommend 6 month follow-up diagnostic mammogram and ultrasound. BI-RADS category 3, probably benign findings. Reviewed, dictated and finalized at location A. IMPRESSION: 1. Probably benign bilateral breast masses. 2. Recommend 6 month follow-up diagnostic mammogram and ultrasound. BI-RADS category 3, probably benign findings.
== END 2020-10-22 12:36 | disposition home or self-care (01) ==
PROVIDERS: PCP Internal Medicine; Visit Provider Internal Medicine Hematology & Oncology
DX: N64.59 Other signs and symptoms in breast (principal)
CPT/HCPCS: 76642; 77062; 77066; G0279

== ENCOUNTER 2020-11-13 00:58 | Day surgery (SDC) | payer BC, SELFPAY ==
[2020-11-06 09:40] VITALS: BMI 41.5
[2020-11-13 10:30] VITALS: BP 137/85; PULSE 69; RESP 14; TEMP 36.5; O2SAT 99; BMI 42.3
[2020-11-13] MEDS: LACTATED RINGERS 1,000 ML 30 ML IV CONT (10:50)
[2020-11-13] MEDS: ACETAMINOPHEN 500 MG TABLET 1000 MG PO (10:54)
--- NOTE | 2020-11-13 11:11 | WPDANESEPPF ---
Anes - Initial Pre Proc Eval Procedure: Operation Date: 11/13/20 12:30 Proposed Procedures p Hysteroscopy Dilation and Curettage with Jerica Ablation - Scott Capone MD Date/Time: 11/13/20 11:11 Surgeon: Scott Capone MD Pre Op Diagnosis: irregular bleeding Patient Data Age: 40 Gender: F Height: 1.65 m Weight: 113.4 kg Last Vital Signs Temp 97.7 F 11/13/20 10:30 Pulse 69 11/13/20 10:30 Resp 14 11/13/20 10:30 BP 137/85 11/13/20 10:30 Pulse Ox 99 11/13/20 10:30 Allergies Allergy/AdvReac Type Severity Reaction Status Date / Time paroxetine AdvReac Mild rash Verified 11/13/20 10:28 sertraline AdvReac Mild rash Verified 11/13/20 10:28 Home Medications Medication Instructions Recorded Confirmed Type duloxetine 60 mg PO HS 12/23/19 11/06/20 History topiramate 50 mg PO BID 12/23/19 11/13/20 History verapamil 180 mg PO HS 12/23/19 11/06/20 History omeprazole magnesium [Acid Convention Services Manager 20 mg PO DAILY 12/24/19 11/06/20 History (omeprazole)] aspirin 81 mg tablet,delayed 81 mg PO DAILY 06/13/20 11/13/20 History release folic acid 0.4 mg PO HS 11/06/20 11/06/20 History Patient hx anesthesia problems: none Family hx anesthesia problems: none [facility] Past Medical History Medical History (Updated 06/26/20 @ 08:53 by Cecilia Jones) Chronic GERD Generalized anxiety disorder GERD (gastroesophageal reflux disease) History of blood clots Hypertension Migraine Surgical History Surgical History H/O wisdom tooth extraction Family History Family History Mother Acute myocardial infarction Hypertension Father Hypertension Blood clotting disorder Grandparent Heart disease Social History Social History Social History: the patient lives home alone with her 2 dogs. She desires to have her mother is her durable power assistant district attorney for healthcare. The patient desires to be a full code. She has never or had any children. 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 She is a former smoker. No alcohol marijuana or illicit drugs Smoking packs per day: 1 Smoking cigarettes per day: 20.0 Years smoked: 15 Smoking pack-years: 15.00 Smoking status: Never smoker Tobacco type: cigarettes Second hand tobacco smoke exposure: No Alcohol intake: never Substance use: never Substance use type: does not use Living arrangements: alone Gender identity (if verbalized by the patient): Female Spiritual care concerns: No Anes - Eval Final PreProcedure Day of Procedure 11/13/20 11:11 Patient weight: morbidly obese Heart: regular rate and rhythm Lungs: clear to auscultation Airway: Mallampati scale class III Neurological: alert and oriented Last oral intake: >/= 8 hours ASA classification: III Anesthetic plan: proceed Anesthesia type and monitoring: general GIVS and standard monitoring Informed Consent: The patient's anesthetic plan and its attendant risks and benefits were discussed with the patient/family/POA. Questions were solicited and answers provided to the satisfaction of the patient/family/POA.
--- NOTE | 2020-11-13 12:32 | PM.IMHP ---
H&P: HPI History of Present Illness Date/Time: 11/13/20 12:32 40 y/o G0 with heavy, painful menses. She is in a same sex relationship and does not require contraception. Ultrasound shows a heterogeneous myometrium and is otherwise unremarkable. Chief Complaint: Heavy periods Review of Systems Review of Systems: All systems reviewed & are unremarkable except as noted in HPI and below PMFSH Past Medical History Medical History Chronic GERD Generalized anxiety disorder GERD (gastroesophageal reflux disease) History of blood clots Hypertension Migraine Surgical History Surgical History H/O wisdom tooth extraction Family History Family History Mother Acute myocardial infarction Hypertension Father Hypertension Blood clotting disorder Grandparent Heart disease Social History Social History Social History: the patient lives home alone with her 2 dogs. She desires to have her mother is her durable power compliance attorney for healthcare. The patient desires to be a full code. She has never or had any children. 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 She is a former smoker. No alcohol marijuana or illicit drugs Smoking packs per day: 1 Smoking cigarettes per day: 20.0 Years smoked: 15 Smoking pack-years: 15.00 Smoking status: Never smoker Tobacco type: cigarettes Second hand tobacco smoke exposure: No Alcohol intake: never Substance use: never Substance use type: does not use Living arrangements: alone Gender identity (if verbalized by the patient): Female Spiritual care concerns: No Meds Home Medications and Allergies Home Medications Medication Instructions Recorded Confirmed Type duloxetine 60 mg PO HS 12/23/19 11/06/20 History topiramate 50 mg PO BID 12/23/19 11/13/20 History verapamil 180 mg PO HS 12/23/19 11/06/20 History omeprazole magnesium [[employer] Pilot 20 mg PO DAILY 12/24/19 11/06/20 History (omeprazole)] aspirin 81 mg tablet,delayed 81 mg PO DAILY 06/13/20 11/13/20 History release folic acid 0.4 mg PO HS 11/06/20 11/06/20 History Allergies Allergy/AdvReac Type Severity Reaction Status Date / Time paroxetine AdvReac Mild rash Verified 11/13/20 10:28 sertraline AdvReac Mild rash Verified 11/13/20 10:28 Vital Signs Vital Signs - 24 hr 11/13/20 10:30 Temperature 36.5 C Pulse Rate 69 Respiratory Rate 14 Blood Pressure 137/85 Pulse Oximetry 99 Exam Const: Orientation/consciousness: patient oriented x3 Other: Well-developed, well-nourished female in no acute distress. Neck: Thyroid: thyroid normal Lymphatic: no lymphadenopathy noted (in neck, axilla or inguinal nodes) Resp: Effort & Inspection: normal respiratory effort Auscultation: clear to auscultation bilaterally Cardio: Rate: regular rate Rhythm: regular rhythm Heart sounds: S1 normal heart sound present and S2 normal heart sound present GI: Other: ABD: Soft, nontender, nondistended. No guarding or rebound tenderness. No hepatosplenomegaly. : General: Yes no CVA tenderness Other: External genitalia: normal female hair distribution, without lesion. Urethral meatus: no lesion, non prolapsed. Bladder: no mass, nontender Vagina: well-estrogenized, without lesion or discharge. No cystocele or rectocele. Cervix: no lesion or discharge. Uterus: small, anteverted, freely mobile, nontender Adnexa: no mass or tenderness. Anus/perineum: no lesions, nontender Back/Spine/Pelvis: Back: no CVA tenderness Skin: General skin exam: normal color and no rashes or lesions noted Neuro: General: patient oriented x3 Extrem: Other: Extremities: nontender with no edema Psych: Mental Status: mental status grossly normal Affect: normal aff
--- NOTE | 2020-11-13 12:36 | WPDHPUPDATE1 ---
History and Physical Update Update Date/Time: 11/13/20 12:36 History and Physical has been reviewed, including an updated exam of the patient. There are NO changes in the patient's condition. Risks, benefits, and alternatives have been discussed and questions answered. Patient agrees to proceed with procedure.
[2020-11-13] MEDS: KETOROLAC 30 MG/ML VIAL (*BKC) IV PUSH (12:47)
--- NOTE | 2020-11-13 12:58 | W.PM.PROC2 ---
Procedure Note - Detailed Date of Procedure 11/13/20 Pre-op Diagnosis Menometrorrhagia Post-op Diagnosis same Procedure Performed Hysteroscopy Dilation and sharp curettage Endometrial ablationi Surgeon Scott Capone MD Anesthesia MAC and local (1% lidocaine) Findings Unremarkable endometrium. Both tubal ostia seen. Uterus sounded to a depth of 7 cm with a cervical length of 3 cm. Description of Procedure The patient was taken to the operating room where she was prepared and draped in the usual sterile fashion in the dorsal lithotomy position. The bladder was drained with a red rubber catheter. A sterile speculum was placed into the vagina. The anterior lip of the cervix was grasped with single-tooth tenaculum. Ten mL of 1% lidocaine was administered in a paracervical block. The cervix was then gently dilated using Hegar dilators until an 8 mm dilator could be passed. Hysteroscopy was performed using sterile saline as a distention medium. Findings are as noted above. Sharp curettage was then performed, and endometrial curettings were collected on a Telfa pad and passed off to be sent to pathology. Finally, the the Jerica device was advanced and endometrial ablation commenced without difficulty. The device was withdrawn and a second look was taken using the hysteroscope. Excellent coverage of the endometrial cavity was noted. The tenaculum was removed. Hemostasis was excellent. Sponge, lap, needle and instrument counts were correct. The patient was awakened and taken to the recovery room in stable condition. I was present and scrubbed through the entire procedure. Estimated Blood Loss 10 Drains No Packing No Pathology yes (endometrial curettings) Complications None Condition stable Disposition PACU
[2020-11-13 13:00] VITALS: BP 117/74; PULSE 75; RESP 14; O2SAT 94
[2020-11-13 13:30] VITALS: BP 132/79; PULSE 63; RESP 14; O2SAT 99
[2020-11-13 13:50] VITALS: BP 132/88; PULSE 63; RESP 14
== END 2020-11-13 14:00 | disposition home or self-care (01) ==
PROVIDERS: PCP Internal Medicine; Visit Provider Obstetrics & Gynecology
PROC: 0U5B8ZZ Destruction of Endometrium, Via Natural or Artificial Opening Endoscopic (ICD-10-PCS; CPT 58563; principal; 2020-11-13 12:30)
DX: N92.1 Excessive and frequent menstruation with irregular cycle (principal); I10 Essential (primary) hypertension; K21.9 Gastro-esophageal reflux disease without esophagitis; F41.1 Generalized anxiety disorder; Z86.718 Personal history of other venous thrombosis and embolism; Z87.891 Personal history of nicotine dependence; E66.01 Morbid (severe) obesity due to excess calories; Z68.41 Body mass index [BMI] 40.0-44.9, adult
CPT/HCPCS: 58563; 88305; A9270; J1885; J2250; J2270; J2405; J2704; J7030; J7120

== ENCOUNTER 2021-01-14 13:55 | Outpatient (CLI) | payer BC, SELFPAY ==
--- NOTE | ~2021-01-14 | MMUS_ITS ---
EXAMINATION: MM diagnostic keturah LT w lary, US breast LT limited HISTORY: Six-month follow-up of benign left breast biopsy TECHNIQUE: Craniocaudal, mediolateral, and mediolateral oblique 3-D tomosynthesis images of the left breast were performed and synthetic 2-D images were generated. CAD analysis was submitted and interpr eted. High resolution limited left breast ultrasound was performed. COMPARISON: 10/22/2020, 06/10/2020, 10/27/2019, 07/10/2015 BREAST PARENCHYMAL COMPOSITION: The breasts are heterogeneously dense, which may obscure small masses . FINDINGS: MAMMOGRAPHIC FINDINGS: There are multiple stable left breast masses. Stable calcifications are also noted in the outer left breast. There has been no suspicious interval change. ULTRASOUND: There is a stable 8 mm x 3 mm oval, circumscribed, parallel, complex cystic and solid mass at the 4:0 0 location with no posterior features or internal vascularity. IMPRESSION: 1. Mammographically stable left breast masses and sonographically stable mass at the 4:00 location. P atient is due for follow-up of additional bilateral palpable masses evaluated on recent diagnostic ma mmogram in three months. BI-RADS category 3, probably benign findings. Reviewed, dictated and finalized at location A. ONNEL TRAINING OFFICER IMPRESSION: 1. Mammographically stable left breast masses and sonographically stable mass a t the 4:00 location. Patient is due for follow-up of additional bilateral palpa ble masses evaluated on recent diagnostic mammogram in three months. BI-RADS category 3, probably benign findings.
== END 2021-01-14 13:56 | disposition home or self-care (01) ==
PROVIDERS: PCP Internal Medicine; Visit Provider Surgery
DX: R92.8 Other abnormal and inconclusive findings on diagnostic imaging of breast (principal)
CPT/HCPCS: 76642; 77061; 77065; G0279

== ENCOUNTER 2021-03-27 14:44 | Outpatient (CLI) | payer OTHER, SELFPAY ==
[2021-03-27 15:00] LABS: Basophils Absolute Auto 0.1 K/mm3 (0.0-0.1); Basophils Percent Auto 1.2 % (0.2-1.2); Eosinophils Absolute Auto 0.4 K/mm3 (0-0.3); Eosinophils Percent Auto 4.7 % (0-4.4); Hematocrit 41.5 % (37.0-47.0); Hemoglobin 12.9 g/dL (12.0-15.0); Immature Granulocyte Absolute 0.03 K/mm3 (0.00-0.031); Immature Granulocyte Percent A 0.4 % (0-0.5); Lymphocytes Absolute Auto 2.59 K/mm3 (0.9-3.2); Lymphocytes Percent Auto 33.5 % (18.3-44.2); Mean Corpuscular HGB Conc 31.1 g/dl (32-36); Mean Corpuscular Hemoglobin 30.9 pg (26-34); Mean Corpuscular Volume 99.5 fl (80-100); Monocytes Absolute Auto 0.6 K/mm3 (0.1-0.6); Monocytes Percent Auto 7.5 % (2.6-8.5); Neutrophils Absolute Auto 4.1 K/mm3 (1.3-6.7); Neutrophils Percent Auto 52.7 % (45.5-73.1); Platelet Count Result 232 k/mm3 (150-375); Red Blood Count 4.17 M/mm3 (4.2-5.4); Red Cell Distribution Width 12.8 % (11.5-14.5); White Blood Count 7.7 K/mm3 (4.5-10.0)
[2021-03-27 15:05] LABS: Blood Urea Nitrogen 17 mg/dL (8-26); Carbon Dioxide 23 mmol/L (22-30); Chloride 107 mmol/L (98-109); Estimated Glomerular Filt Rate 55; Glucose 67 mg/dL (70-105); Potassium 4.3 mmol/L (3.5-4.9); Sodium 140 mmol/L (138-146)
[2021-03-27 15:57] LABS: Alanine Aminotransferase 19 U/L (4-35); Albumin Level 4.3 g/dL (3.5-5.1); Alkaline Phosphatase 76 U/L (38-126); Anion Gap 8 mmol/L (8-16); Aspartate Amino Transferase 25 U/L (14-36); Bilirubin,Total 0.3 mg/dL (0.2-1.3); Blood Urea Nitrogen 16 mg/dL (7-17); Calcium 9.5 mg/dL (8.4-10.2); Carbon Dioxide 23 mmol/L (22-30); Chloride 107 mmol/L (98-107); Estimated Glomerular Filt Rate 50; Glucose 73 mg/dL (65-110); Potassium 4.4 mmol/L (3.4-5.0); Sodium 138 mmol/L (137-145)
== END 2021-03-27 14:45 | disposition home or self-care (01) ==
LOC: ANHLAB 14:49
PROVIDERS: PCP Internal Medicine; Visit Provider Internal Medicine Hematology & Oncology
DX: D73.5 Infarction of spleen (principal)
CPT/HCPCS: 36415; 80053; 85025

== ENCOUNTER 2021-04-08 12:38 | Outpatient (CLI) | payer OTHER, SELFPAY ==
--- NOTE | ~2021-04-08 | MMUS_ITS ---
EXAMINATION: MM diagnostic keturah BI w lary, US breast LT limited HISTORY: Follow-up bilateral breast masses TECHNIQUE: Additional 3-D tomosynthesis images of the breasts were performed and synthetic 2-D images were generated. CAD analysis was submitted and interpreted. High resolution Limited left breast ultrasound was performed. COMPARISON: Comparison to multiple prior studies sequentially, with oldest reviewed study dated 07/10/2015. BREAST PARENCHYMAL COMPOSITION: The breasts are heterogenously dense, which may obscure small masses. FINDINGS: MAMMOGRAPHIC FINDINGS: Bilateral breast masses are stable. No significant change to benign-appearing bilateral breast calcifications, many of which layer on the medial lateral view.. ULTRASOUND: Limited left breast ultrasound: At 10:00 and 4:00 there are clusters of benign- appearing microcysts which are not significantly changed from prior studies. IMPRESSION: 1. No evidence for malignancy in either breast. Benign findings. 2. Routine yearly screening mammogram and regular clinical breast examination are recommended. BI-RADS Category 2: Benign finding(s). T OF WAY MAN VERO
== END 2021-04-08 12:39 | disposition home or self-care (01) ==
PROVIDERS: PCP Internal Medicine; Visit Provider Internal Medicine Hematology & Oncology
DX: N60.12 Diffuse cystic mastopathy of left breast (principal)
CPT/HCPCS: 76642; 77062; 77066; G0279

== ENCOUNTER 2021-07-05 11:03 | Outpatient (CLI) | payer OTHER, SELFPAY ==
[2021-07-05 11:29] LABS: Alanine Aminotransferase 20 U/L (14-59); Albumin Level 3.4 g/dL (3.4-5.0); Alkaline Phosphatase 88 U/L (46-116); Aspartate Amino Transferase 12 U/L (15-37); Bilirubin Direct 0.1 mg/dL (0-0.2); Bilirubin,Total 0.3 mg/dL (0.00-1.00)
== END 2021-07-05 11:04 | disposition home or self-care (01) ==
LOC: CHSLAB 11:05
PROVIDERS: PCP Internal Medicine; Visit Provider Podiatrist Foot & Ankle Surgery
DX: B35.1 Tinea unguium (principal)
CPT/HCPCS: 36415; 80076

== ENCOUNTER 2021-09-15 08:49 | Outpatient (CLI) | payer OTHER, SELFPAY ==
[2021-09-15 09:08] LABS: Basophils Absolute Auto 0.1 K/mm3 (0.0-0.1); Basophils Percent Auto 0.9 % (0.2-1.2); Eosinophils Absolute Auto 0.3 K/mm3 (0-0.3); Eosinophils Percent Auto 4.2 % (0-4.4); Hematocrit 42.7 % (37.0-47.0); Hemoglobin 13.2 g/dL (12.0-15.0); Immature Granulocyte Absolute 0.02 K/mm3 (0.00-0.031); Immature Granulocyte Percent A 0.3 % (0-0.5); Lymphocytes Absolute Auto 2.25 K/mm3 (0.9-3.2); Lymphocytes Percent Auto 30.4 % (18.3-44.2); Mean Corpuscular HGB Conc 30.9 g/dl (32-36); Mean Corpuscular Hemoglobin 29.3 pg (26-34); Mean Corpuscular Volume 94.7 fl (80-100); Mean Platelet Volume 9.1 fl (7.4-10.4); Monocytes Absolute Auto 0.5 K/mm3 (0.1-0.6); Monocytes Percent Auto 6.7 % (2.6-8.5); Neutrophils Absolute Auto 4.3 K/mm3 (1.3-6.7); Neutrophils Percent Auto 57.5 % (45.5-73.1); Platelet Count Result 229 k/mm3 (150-375); Red Blood Count 4.51 M/mm3 (4.2-5.4); Red Cell Distribution Width 12.7 % (11.5-14.5); White Blood Count 7.4 K/mm3 (4.5-10.0)
[2021-09-15 09:34] LABS: Alanine Aminotransferase 16 U/L (6-35); Albumin Level 4.5 g/dL (3.5-5.1); Alkaline Phosphatase 89 U/L (38-126); Anion Gap 5 mmol/L (8-16); Aspartate Amino Transferase 29 U/L (14-36); Bilirubin,Total 0.2 mg/dL (0.2-1.3); Blood Urea Nitrogen 15 mg/dL (7-17); Carbon Dioxide 24 mmol/L (22-30); Chloride 108 mmol/L (98-107); Estimated Glomerular Filt Rate 50; Glucose 99 mg/dL (65-110); Potassium 5.4 mmol/L (3.4-5.0); Sodium 137 mmol/L (137-145)
[2021-09-18 12:44] LABS: Homocysteine 11.2 umol/L (<10.4)
== END 2021-09-15 08:50 | disposition home or self-care (01) ==
PROVIDERS: PCP Internal Medicine; Visit Provider Internal Medicine Hematology & Oncology
DX: D73.5 Infarction of spleen (principal)
CPT/HCPCS: 36415; 80053; 83090; 85025

== ENCOUNTER 2021-09-18 15:59 | Outpatient (CLI) | payer OTHER, SELFPAY ==
[2021-09-18 16:52] LABS: D Dimer 0.43 ug/mL (<0.48)
== END 2021-09-18 16:00 | disposition home or self-care (01) ==
LOC: ANHLAB 16:00
PROVIDERS: PCP Internal Medicine; Visit Provider Internal Medicine Hematology & Oncology
DX: D73.5 Infarction of spleen (principal)
CPT/HCPCS: 36415; 85380

== ENCOUNTER 2021-09-20 08:22 | Outpatient (CLI) | payer OTHER, SELFPAY ==
--- NOTE | 2021-09-20 08:24 | ECG_ITS ---
Measurements Intervals [place] Rate: 77 P: 43 ID: 160 QRS: 40 QRSD: 81 T: 37 QT: 360 QTc: 409 Interpretive Statements SINUS RHYTHM NORMAL ECG Electronically Signed On 09-20-2021 17:16:23 CDT by Pete Hansen D.O.
== END 2021-09-20 08:23 | disposition home or self-care (01) ==
LOC: CHSCARD 08:24
PROVIDERS: PCP Internal Medicine; Visit Provider Anesthesiology
DX: I10 Essential (primary) hypertension (principal)
CPT/HCPCS: 93005

== ENCOUNTER 2021-09-26 01:52 | Day surgery (SDC) | payer OTHER, SELFPAY ==
[2021-09-19 12:29] VITALS: BMI 46.2
--- NOTE | 2021-09-19 12:35 | PC.NURSE ---
Report to the Outpatient Waiting Room, entrance under the green pavilion located off [facility], at time 0800 on date 09/26/21. OR Time: 1000. - You and your visitor will be asked a series of questions to screen for COVID 19 for your protection. - Only one visitor is allowed at this time. - The patient visitor is requested to leave or wait in car when not with patient. - A mask is required within the hospital. Patients may have clear liquids (water, carbonated beverages, clear teas, apple juice) until 3 hours prior to surgery with a maximum of 20 ounces. - No food from midnight until time of surgery Take the following medications with a SIP of water the morning of surgery: TOPIRAMATE Medications to discontinue per physician: VITAMINS/SUPPLEMENTS Date to take last dose: 09/22/21 STOP ASPIRIN 7 DAYS PRIOR TO PROCEDURE (PER DR PETERS) Please no make-up, nail lao, hairspray, perfume, deodorant, or body powder the day of surgery. No jewelry (including any body piercings) or valuables the day of surgery, leave them at home. Please take a shower or bath the night before, or the morning of, surgery with an antibacterial soap. Wear comfortable, loose fitting clothing. - Jewelry must be removed prior to entering the operating room. Rings and piercings that are not removed may be cut off. - The hospital will not accept responsibility for valuables. - Please leave all valuables, including medications, at home the day of surgery. If you are going home after surgery, a licensed charter coach driver must drive you home. - NO public transportation without another adult. - We recommend that an adult stay with you for 24 hours following discharge. - We also recommend that you do not drive, make important decision, drink alcoholic beverages, or take any drugs that were not prescribed by your health care provider for at least 24 hours after your discharge time. Follow any additional instructions given to you from your surgeon. If you or anyone in your household have experienced Covid symptoms in the past week, please notify your surgeon or the nurse liaison at the phone number below for possible testing. Telephone instructions given to PT - SHOAIB GOMEZ and asked if any additional questions and then verbalized understanding. Patient advised to call surgeon office or pre surgery nurse liaison [phone] if any additional questions.
[2021-09-26 08:07] VITALS: BP 126/77; PULSE 76; RESP 16; TEMP 36.5; O2SAT 99
[2021-09-26] MEDS: LACTATED RINGERS 1,000 ML 30 ML IV CONT (08:55)
--- NOTE | 2021-09-26 08:56 | WPDANESEPPF ---
Anes - Initial Pre Proc Eval Procedure: Operation Date: 09/26/21 10:00 Proposed Procedures p Excision of Soft Tissue Mass Fourth Toe Left Foot - Ric Mckenzie DPM Date/Time: 09/26/21 08:56 Surgeon: Ric Mckenzie DPM Pre Op Diagnosis: Soft tissue mass fouth toe left foot Patient Data Age: 41 Gender: F Height: 1.65 m Weight: 124.9 kg Last Vital Signs Temp 36.5 C 09/26/21 08:07 Pulse 76 09/26/21 08:07 Resp 16 09/26/21 08:07 BP 126/77 09/26/21 08:07 Pulse Ox 99 09/26/21 08:07 O2 Del Method Room Air 09/26/21 08:07 Allergies Allergy/AdvReac Type Severity Reaction Status Date / Time paroxetine AdvReac Mild rash Verified 09/26/21 08:23 sertraline AdvReac Mild rash Verified 09/26/21 08:23 Home Medications Medication Instructions Recorded Confirmed Type duloxetine 60 mg capsule,delayed 60 mg PO HS 12/23/19 09/26/21 History release topiramate 25 mg tablet 50 mg PO BID 12/23/19 09/26/21 History verapamil 180 mg tablet,extended 180 mg PO HS 12/23/19 09/26/21 History release omeprazole magnesium 20 mg 20 mg PO DAILY 12/24/19 09/26/21 History capsule,delayed release (Acid Stem Cutter (omeprazole)) aspirin 81 mg tablet,delayed 81 mg PO DAILY 06/13/20 09/26/21 History release (Adult Aspirin Regimen) folic acid 400 mcg tablet 0.4 mg PO HS 11/06/20 09/26/21 History Patient hx anesthesia problems: none Family hx anesthesia problems: none Results Review: All pre-operative results and documents have been reviewed as part of the pre-operative evaluation. [facility] Past Medical History Medical History Chronic GERD Generalized anxiety disorder GERD (gastroesophageal reflux disease) History of blood clots Hypertension Migraine Surgical History Surgical History (Updated 09/26/21 @ 09:00 by Tan Medrano MD) H/O breast biopsy H/O wisdom tooth extraction S/P endometrial ablation Family History Family History Mother Acute myocardial infarction Hypertension Father Hypertension Blood clotting disorder Grandparent Heart disease Other Adrenal carcinoma Breast cancer Hodgkins disease Social History Social History (Updated 09/26/21 @ 08:57 by Tan Medrano MD) Social History: the patient lives home alone with her 2 dogs. She desires to have her mother is her durable power trade mark attorney for healthcare. The patient desires to be a full code. She has never or had any children. 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 No alcohol marijuana or illicit drugs Smoking packs per day: 1 Smoking cigarettes per day: 20.0 Years smoked: 15 Smoking pack-years: 15.00 Smoking status: Former smoker Tobacco type: cigarettes Second hand tobacco smoke exposure: No Smoking end date: 03/01/11 Alcohol intake: never Substance use: never Substance use type: does not use Living arrangements: alone Gender identity (if verbalized by the patient): Female Spiritual care concerns: No Anes - Eval Final PreProcedure Day of Procedure 09/26/21 08:56 Patient weight: morbidly obese Heart: regular rate and rhythm Lungs: clear to auscultation Airway: Mallampati scale class II Neurological: alert and oriented Last oral intake: >/= 8 hours ASA classification: III Emergent: no Anesthetic plan: proceed Anesthesia type and monitoring: general GIVS and standard monitoring Results Review: All pre-operative results and documents have been reviewed as part of the pre-operative evaluation. Informed Consent: The patient's anesthetic plan and its attendant risks and benefits were discussed with the patient/family/POA. Questions were solicited and answers provided to the satisfaction of the patient/family/POA.
--- NOTE | 2021-09-26 09:43 | WPDHPUPDATE1 ---
History and Physical Update Update Date/Time: 09/26/21 09:43 History and Physical has been reviewed, including an updated exam of the patient. There are NO changes in the patient's condition. Risks, benefits, and alternatives have been discussed and questions answered. Patient agrees to proceed with procedure.
--- NOTE | 2021-09-26 10:18 | SUR.PREOP ---
pt informed delay in procedure
[2021-09-26] MEDS: ceFAZolin 3 GM/D5W 100 ML 100 ML IVPB (10:42)
[2021-09-26] MEDS: NEOMYCIN/POLYMYXIN/BACITRACIN OINTMENT PACKET 1 PACKET TOPICAL (11:13)
--- NOTE | 2021-09-26 11:17 | PM.OP ---
Procedure Note - Brief Procedure Note - Brief Date of procedure: 09/26/21 Pre-op diagnosis: Soft tissue mass fouth toe left foot Post-op diagnosis: Same Procedure performed: Excision of soft tissue mass 4th toe right Description of procedure: Under monitored sedation patient was brought into the operating room, placed on the operating table in a supine position. Following IV sedation the foot was anesthetized with local anesthetic then scrubbed, prepped and draped in the usual aseptic manner. Esmark bandage used to exsanguinate the patient?s right foot and the ankle tourniquet was inflated to 250mm. Attention was then directed to the planter 4th MTH where a linear incision was made. A 5 mm soft tissue mass was identified that appeared to me attached to the digital nerve. the nerve was removed and sent for pathology. The skin was repaired with 4-0 nylonl. After completion of the procedure the interspace was covered with a dry, sterile compressive dressing consisting of steristrips, antibiotic ointment, Adaptic, 4 x 4?s, David and Coban. Ankle tourniquet was deflated, prompt capillary refill response noted to all digits of the left foot. Patient tolerated procedure and anesthesia well. She was transferred to the recovery room with vital signs stable and neurovascular status intact to all digits of the left foot. Following a period of post-operative monitoring the patient will be discharged home with written and oral post-operative instructions. Implants: none Anesthesia: MAC Surgeon: Ric Mckenzie DPM Estimated blood loss (mL): 5 Drains: No Packing: No Pathology: Yes Complications: No immediate complications Condition: Stable Disposition: PACU
[2021-09-26 11:22] VITALS: BP 137/80; PULSE 78; RESP 16; O2SAT 97
[2021-09-26 11:45] VITALS: BP 138/82; PULSE 73; RESP 18; O2SAT 100
[2021-09-26 12:15] VITALS: BP 128/89; PULSE 72; RESP 18
== END 2021-09-26 12:35 | disposition home or self-care (01) ==
PROVIDERS: PCP Internal Medicine; Visit Provider Podiatrist Foot & Ankle Surgery
PROC: (CPT 28080; principal; 2021-09-26 10:00)
DX: G57.62 Lesion of plantar nerve, left lower limb (principal); K21.9 Gastro-esophageal reflux disease without esophagitis; F41.1 Generalized anxiety disorder; I10 Essential (primary) hypertension; Z87.891 Personal history of nicotine dependence; E66.01 Morbid (severe) obesity due to excess calories; Z68.42 Body mass index [BMI] 45.0-49.9, adult; Z79.82 Long term (current) use of aspirin
CPT/HCPCS: 28080; 88305; A9270; J0690; J1100; J2250; J2405; J2704; J3010; J7120

== ENCOUNTER 2021-10-10 19:23 | Emergency (ER) | payer OTHER, SELFPAY ==
[2021-10-10 19:34] VITALS: BP 152/82; PULSE 88; RESP 18; TEMP 36.6; O2SAT 100
--- NOTE | 2021-10-10 19:43 | ED.WOUNDLAC ---
HPI - Wound/Laceration General Chief Complaint: Wound/Laceration Stated Complaint: top lip busted by dog Time Seen by Provider: 10/10/21 19:43 Source: patient and RN notes reviewed Mode of arrival: ambulatory Limitations: no limitations History of Present Illness HPI narrative: Patient was playing with her new puppy. The puppy raised his head up and basically head-butted her in the right face causing a small laceration on the inside of her right upper mouth near the lip. Onset (ago): minute(s) (30) Location: other (mouth) Place: home Context: accidental Associated symptoms: none Related Data Home Medications Medication Instructions Recorded Confirmed duloxetine 60 mg capsule,delayed 60 mg PO HS 12/23/19 10/10/21 release topiramate 25 mg tablet 50 mg PO BID 12/23/19 10/10/21 verapamil 180 mg tablet,extended 180 mg PO HS 12/23/19 10/10/21 release omeprazole magnesium 20 mg 20 mg PO DAILY 12/24/19 10/10/21 capsule,delayed release (Acid [employer] Roaster Helper (omeprazole)) aspirin 81 mg tablet,delayed 81 mg PO DAILY 06/13/20 10/10/21 release (Adult Aspirin Regimen) folic acid 400 mcg tablet 0.4 mg PO HS 11/06/20 10/10/21 Allergies Allergy/AdvReac Type Severity Reaction Status Date / Time paroxetine AdvReac Mild rash Verified 09/26/21 08:23 sertraline AdvReac Mild rash Verified 09/26/21 08:23 Review of Systems Review of Systems: All systems reviewed & are unremarkable except as noted in HPI and below PMFSH Past Medical History Medical History Chronic GERD Generalized anxiety disorder GERD (gastroesophageal reflux disease) History of blood clots Hypertension Migraine Surgical History Surgical History H/O breast biopsy H/O wisdom tooth extraction S/P endometrial ablation Family History Family History Mother Acute myocardial infarction Hypertension Father Hypertension Blood clotting disorder Grandparent Heart disease Other Adrenal carcinoma Breast cancer Hodgkins disease Social History Social History Social History: the patient lives home alone with her 2 dogs. She desires to have her mother is her durable power contract attorney for healthcare. The patient desires to be a full code. She has never or had any children. 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 No alcohol marijuana or illicit drugs Smoking packs per day: 1 Smoking cigarettes per day: 20.0 Years smoked: 15 Smoking pack-years: 15.00 Smoking status: Former smoker Tobacco type: cigarettes Second hand tobacco smoke exposure: No Smoking end date: 03/01/11 Alcohol intake: never Substance use: never Substance use type: does not use Gender identity (if verbalized by the patient): Female Spiritual care concerns: No Exam Const: General: healthy appearing, no acute distress and alert Nutritional Appearance: well nourished and obese morbidly obese Orientation/consciousness: patient oriented x3 Limitations: no limitations HENMT: Head: normal to inspection Ears: external ears normal Face and sinus: normal facial exam Mouth: Yes moist mucous membranes Teeth and gingiva: dentition normal Eyes: Conjunctivae: conjunctivae normal Pupils: Equal, round and reactive pupils present EOM: EOMs intact bilaterally Neck: Neck: normal visual inspection Resp: Effort & Inspection: normal respiratory effort Auscultation: clear to auscultation bilaterally Cardio: Rate: regular rate Rhythm: regular rhythm GI: GI Palp: Yes Soft to palpation and No Tenderness to palpation present (GI) Auscultation: normal bowel sounds Back/Spine/Pelvis: Cervical Spine: cervical ROM normal Thoracic/Lumbar Spine: thoraco-lumbar ROM normal Skin: General skin exam: normal color Rashes: no rashes
[2021-10-10] MEDS: AMOXICILLIN 500 MG CAPSULE PO (20:08)
[2021-10-10 20:11] VITALS: BP 140/60; PULSE 70; RESP 18; TEMP 36.6; O2SAT 99
== END 2021-10-10 20:12 | disposition home or self-care (01) ==
PROVIDERS: Emergency Provider Emergency Medicine; PCP Internal Medicine
DX: S01.511A Laceration without foreign body of lip, initial encounter (principal); W54.1XXA Struck by dog, initial encounter
CPT/HCPCS: 99283; A9270

== ENCOUNTER 2022-01-26 10:46 | Outpatient (CLI) | payer OTHER, SELFPAY ==
--- NOTE | ~2022-01-26 | XR_ITS ---
EXAMINATION: XR chest 2V 01/26/2022 11:05 INDICATION: Chest pain PROCEDURE: 2 view chest COMPARISON: No prior studies for comparison. FINDINGS: The lungs are clear. The cardiomediastinal silhouette is within normal limits. There are no pleural effusions. There is no pneumothorax suspected. IMPRESSION: 1: NO ACUTE CARDIOPULMONARY DISEASE. Reviewed, dictated and finalized at location A. CORD WEAVER
[2022-01-26 11:02] LABS: Basophils Absolute Auto 0.07 K/mm3 (0.00-0.10); Eosinophils Absolute Auto 0.35 K/mm3 (0.02-0.50); Eosinophils Percent Auto 4.8 % (1.0-6.0); Hematocrit 43.2 % (35.0-49.0); Hemoglobin 13.4 g/dL (12.0-15.0); Immature Granulocyte Absolute 0.02 K/mm3 (0.00-0.00); Immature Granulocyte Percent A 0.3 % (0.0-0.0); Lymphocytes Absolute Auto 2.17 K/mm3 (1.10-4.50); Lymphocytes Percent Auto 29.7 % (18.0-42.0); Mean Corpuscular Hemoglobin 29.2 pg (27.0-31.0); Mean Corpuscular Volume 94.1 fL (78.0-102.0); Mean Platelet Volume 8.9 fl (9.2-11.8); Monocytes Absolute Auto 0.42 K/mm3 (0.10-0.90); Monocytes Percent Auto 5.7 % (2.0-11.0); Neutrophils Absolute Auto 4.3 K/mm3 (1.7-7.2); Neutrophils Percent Auto 58.5 % (50.0-70.0); Platelet Count Result 218 K/mm3 (150-420); Red Blood Count 4.59 M/mm3 (4.20-5.40); Red Cell Distribution Width 12.9 % (11.6-14.4); White Blood Count 7.3 K/mm3 (4.8-10.8)
[2022-01-26 11:16] LABS: D Dimer 0.29 mg/L (0.19-0.50)
[2022-01-26 12:00] LABS: Alanine Aminotransferase 20 U/L (14-59); Albumin Level 3.7 g/dL (3.4-5.0); Alkaline Phosphatase 94 U/L (46-116); Anion Gap 10 mmol/L (8-16); Aspartate Amino Transferase 11 U/L (15-37); Bilirubin,Total 0.2 mg/dL (0.00-1.00); Blood Urea Nitrogen 14 mg/dL (7-18); CRP 1.3 mg/dL (0.0-0.9); Calcium 8.7 mg/dL (8.5-10.1); Carbon Dioxide 24 mmol/L (21-32); Chloride 108 mmol/L (98-108); Creatine Kinase 59 U/L (26-192); Estimated Glomerular Filt Rate 52; Glucose 100 mg/dL (70-99); Osmolality Calculated 294 mOsm/kg (285-295); Potassium 4.3 mmol/L (3.5-5.1); Sodium 142 mmol/L (136-145); Total Protein 7.4 g/dL (6.4-8.2); Troponin I 4.7 ng/L (0.00-60.4)
== END 2022-01-26 10:47 | disposition home or self-care (01) ==
LOC: CHSIMG 10:48
PROVIDERS: PCP Internal Medicine; Visit Provider Internal Medicine
DX: R07.89 Other chest pain (principal)
CPT/HCPCS: 36415; 71046; 80053; 82550; 82553; 84484; 85025; 85380; 86140

== ENCOUNTER 2022-03-17 15:30 | Outpatient (CLI) | payer OTHER, SELFPAY ==
[2022-03-17 15:41] LABS: Basophils Absolute Auto 0.1 K/mm3 (0.0-0.1); Basophils Percent Auto 1.3 % (0.2-1.2); Eosinophils Absolute Auto 0.4 K/mm3 (0-0.3); Eosinophils Percent Auto 4.9 % (0-4.4); Hematocrit 42.7 % (37.0-47.0); Hemoglobin 13.5 g/dL (12.0-15.0); Immature Granulocyte Absolute 0.02 K/mm3 (0.00-0.031); Immature Granulocyte Percent A 0.2 % (0-0.5); Lymphocytes Absolute Auto 2.67 K/mm3 (0.9-3.2); Lymphocytes Percent Auto 30.6 % (18.3-44.2); Mean Corpuscular HGB Conc 31.6 g/dl (32-36); Mean Corpuscular Hemoglobin 29.6 pg (26-34); Mean Corpuscular Volume 93.6 fl (80-100); Mean Platelet Volume 9.2 fl (7.4-10.4); Monocytes Absolute Auto 0.6 K/mm3 (0.1-0.6); Monocytes Percent Auto 6.3 % (2.6-8.5); Neutrophils Percent Auto 56.7 % (45.5-73.1); Platelet Count Result 273 k/mm3 (150-375); Red Blood Count 4.56 M/mm3 (4.2-5.4); White Blood Count 8.7 K/mm3 (4.5-10.0)
[2022-03-17 15:47] LABS: Blood Urea Nitrogen 15 mg/dL (8-26); Carbon Dioxide 24 mmol/L (22-30); Chloride 107 mmol/L (98-109); Estimated Glomerular Filt Rate 50; Glucose 97 mg/dL (70-105); Ionized Calcium (POC) 1.23 mmol/L (1.11-1.31); Potassium 4.7 mmol/L (3.5-4.9); Sodium 139 mmol/L (138-146)
[2022-03-17 16:37] LABS: Alanine Aminotransferase 19 U/L (6-35); Albumin Level 4.5 g/dL (3.5-5.1); Alkaline Phosphatase 97 U/L (38-126); Anion Gap 8 mmol/L (8-16); Aspartate Amino Transferase 21 U/L (14-36); Bilirubin,Total 0.4 mg/dL (0.2-1.3); Blood Urea Nitrogen 14 mg/dL (7-17); Calcium 9.2 mg/dL (8.4-10.2); Carbon Dioxide 25 mmol/L (22-30); Chloride 107 mmol/L (98-107); Estimated Glomerular Filt Rate 50; Glucose 99 mg/dL (65-110); Potassium 4.8 mmol/L (3.4-5.0); Sodium 140 mmol/L (137-145)
[2022-03-22 15:23] LABS: Homocysteine 7.9 umol/L (<10.4)
== END 2022-03-17 15:31 | disposition home or self-care (01) ==
LOC: ANHLAB 15:31
PROVIDERS: PCP Internal Medicine; Visit Provider Internal Medicine Hematology & Oncology
DX: D73.5 Infarction of spleen (principal)
CPT/HCPCS: 36415; 80047; 80053; 83090; 85025

== ENCOUNTER 2022-06-11 17:03 | Outpatient (CLI) | payer OTHER, SELFPAY ==
--- NOTE | ~2022-06-11 | MM_ITS ---
EXAMINATION: MM screening keturah BI w lary HISTORY: Screening mammogram TECHNIQUE: Craniocaudal and mediolateral oblique 3-D tomosynthesis images were obtained and synthetic 2-D images were generated. CAD analysis was submitted and interpreted. COMPARISON: 04/08/2021, 01/14/2021, 10/22/2020, 10/27/2019 BREAST PARENCHYMAL COMPOSITION:The breasts are heterogeneously dense, which may obscure small masses. FINDINGS: Stable right breast calcifications noted at the upper, outer aspect. There is suggestion of increasing mass adjacent to the biopsy clip at the upper, outer left breast, particularly on MLO vie w. No suspicious mass lesion or architectural distortion seen in the right breast. IMPRESSION: Suggestion of increasing mass adjacent to the biopsy clip at the upper, outer left breast, particular ly on MLO view. Spot compression views and ultrasound recommended to further assess for developing ma ss. BI-RADS Category 0: Incomplete: Needs additional imaging evaluation. Reviewed, dictated and finalized at location . IMPRESSION: Suggestion of increasing mass adjacent to the biopsy clip at the upper, outer l eft breast, particularly on MLO view. Spot compression views and ultrasound rec ommended to further assess for developing mass. BI-RADS Category 0: Incomplete: Needs additional imaging evaluation.
== END 2022-06-11 17:04 | disposition home or self-care (01) ==
PROVIDERS: PCP Internal Medicine; Visit Provider Surgery
DX: Z12.31 Encounter for screening mammogram for malignant neoplasm of breast (principal); N63.21 Unspecified lump in the left breast, upper outer quadrant
CPT/HCPCS: 77063; 77067

== ENCOUNTER 2022-07-02 08:43 | Outpatient (CLI) | payer OTHER, SELFPAY ==
--- NOTE | ~2022-07-02 | MMUS_ITS ---
EXAMINATION: MM diagnostic keturah LT w lary, US breast LT limited HISTORY: Possible left breast mass on screening mammogram TECHNIQUE: Additional 3-D tomosynthesis images of the left breast were performed and synthetic 2-D im ages were generated. CAD analysis was submitted and interpreted. High resolution limited left breast ultrasound was performed. COMPARISON: 06/11/2022, 04/08/2021, 01/14/2021, 10/22/2020 FINDINGS: MAMMOGRAPHIC FINDINGS: There is an approximately 2 cm obscured low density mass in the middle third outer breast at the 3:00 location, 9 cm from the nipple. An adjacent biopsy marker is noted. No suspicious calcification or a rchitectural distortion are identified. ULTRASOUND: There is an approximately 1.7 x 0.8 cm, circumscribed, parallel, complex cystic and solid mass with p osterior acoustic enhancement and no internal vascularity at the 2:00 location. A 0.8 x 0.4 cm mass w ith similar sonographic features is seen at the 4:00 location. IMPRESSION: 1. Probably benign left breast masses. 2. Recommend 6 month follow-up left diagnostic mammogram and ultrasound. BI-RADS category 3, probably benign findings. Reviewed, dictated and finalized at location A. IMPRESSION: 1. Probably benign left breast masses. 2. Recommend 6 month follow-up left diagnostic mammogram and ultrasound. BI-RADS category 3, probably benign findings.
== END 2022-07-02 08:44 | disposition home or self-care (01) ==
LOC: CHSIMG 08:44
PROVIDERS: PCP Internal Medicine; Visit Provider Surgery
DX: R92.8 Other abnormal and inconclusive findings on diagnostic imaging of breast (principal)
CPT/HCPCS: 76642; 77061; 77065; G0279

== ENCOUNTER 2022-07-31 01:06 | Day surgery (SDC) | payer OTHER, SELFPAY ==
[2022-07-21 09:48] VITALS: BMI 46.5
--- NOTE | 2022-07-21 09:53 | PC.NURSE ---
Report to the Outpatient Waiting Room, entrance under the green pavilion located off [facility], at time _0900_ on date _[id number]_. Planned Procedure Time: _1200_. Needle LOC at 1000. Time changes happen often and if your time is changed the preop area will call you the afternoon before. - You and your visitor will be asked to self-screen and do not enter if you have any COVID symptoms. - A mask is optional within the hospital at this time. Patients may have clear liquids (water, carbonated beverages, clear teas, apple juice) until 3 hours prior to surgery with a maximum of 20 ounces. - No food from midnight until time of surgery Take the following medications with a SIP of water the morning of surgery: ___Topiramate DO NOT STOP ANY OF YOUR OTHER PRESCRIPTION MEDICATIONS PRIOR TO SURGERY ?EXCEPT THE FOLLOWING Medications to discontinue per physician None Date to take last dose Please no make-up, nail slovak, hairspray, perfume, deodorant, or body powder the day of surgery. No jewelry (including any body piercings) or valuables the day of surgery, leave them at home. Please take a shower or bath the night before, or the morning of, surgery with an antibacterial soap. Wear comfortable, loose fitting clothing. - Jewelry must be removed prior to entering the operating room. Rings and piercings that are not removed may be cut off. - The hospital will not accept responsibility for valuables. - Please leave all valuables, including medications, at home the day of surgery. If you are going home after surgery, a licensed driver wheelchair must drive you home. - NO public transportation without another adult if you receive anesthesia. - We recommend that an adult stay with you for 24 hours following discharge. - We also recommend that you do not drive, make important decision, drink alcoholic beverages, or take any drugs that were not prescribed by your health care provider for at least 24 hours after your discharge time. Follow any additional instructions given to you from your surgeon. If you or anyone in your household have experienced Covid symptoms in the past week, please notify your surgeon or the nurse liaison at the phone number below for possible testing. Telephone instructions given to __Patient___and asked if any additional questions and then verbalized understanding. Patient advised to call surgeon office or pre surgery nurse liaison [phone] if any additional questions.
--- NOTE | ~2022-07-31 | MM_ITS ---
MM needle loc DATE: 07/31/2022 10:50 INDICATION: Preoperative mammographically guided wire localization of posterior outer mid left breast mass TECHNIQUE: The purpose of the procedure, technique and potential complications were explained. The pa alfredo gave consent. The left breast was placed in compression with biopsy grid apparatus over the lateral aspect of the b reast. The skin was prepared with sterile Betadine solution. 1% lidocaine local anesthetic was a mini ster to the skin overlying the area of interest. A 7.5 cm [place] [facility] needle was introduced into t he area of interest, with lateral medial and craniocaudal mammographic exposures for assessment of ne edle position in depth. The needle was adjusted into appropriate position and the guidewire was engag ed to the tip of the needle once in satisfactory position. The patient was very cooperative and tolerated the procedure well, without apparent complication. IMPRESSION: Successful preoperative mammographically guided wire localization of posterior outer mid left breast mass Reviewed, dictated and finalized at [facility]. Reviewed, dictated and finalized at location A. IMPRESSION: Successful preoperative mammographically guided wire localization o f posterior outer mid left breast mass
--- NOTE | ~2022-07-31 | MM_ITS ---
MM surgical specimen LT DATE: 07/31/2022 12:31 INDICATION: Surgical excision of soft tissue mass and biopsy marker TECHNIQUE: Single noncompression digital mammographic exposure of left breast surgical soft tissue sp ecimen COMPARISON: None FINDINGS: The soft tissue mass and biopsy marker of interest are present within the surgical soft tis chuy specimen IMPRESSION: Successful surgical excision of soft tissue mass and biopsy marker Reviewed, dictated and finalized at [facility]. Reviewed, dictated and finalized at location A.
[2022-07-31] MEDS: ACETAMINOPHEN 500 MG TABLET 1000 MG PO (09:30)
[2022-07-31 09:48] VITALS: BP 146/99; PULSE 90; RESP 16; TEMP 36.6; O2SAT 99
[2022-07-31] MEDS: LACTATED RINGERS 1,000 ML 30 ML IV CONT (09:50)
[2022-07-31] MEDS: KETOROLAC 15 MG/ML VIAL (*BKC) IV PUSH (10:48)
--- NOTE | 2022-07-31 11:06 | WPDHPUPDATE1 ---
History and Physical Update Update Date/Time: 07/31/22 11:06 History and Physical has been reviewed, including an updated exam of the patient. There are NO changes in the patient's condition. Risks, benefits, and alternatives have been discussed and questions answered. Patient agrees to proceed with procedure.
--- NOTE | 2022-07-31 11:29 | WPDANESEPPF ---
Anes - Initial Pre Proc Eval Procedure: Operation Date: 07/31/22 12:00 Proposed Procedures p Excisional Biopsy Left Breast Lesion with Ultrasound And/Or Mammogram Guided Wire Needle Localization - Benja King MD Date/Time: 07/31/22 11:29 Surgeon: Benja King MD Pre Op Diagnosis: left breast mass Patient Data Age: 42 Gender: F Height: 1.65 m Weight: 121.9 kg Last Vital Signs Temp 36.6 C 07/31/22 09:48 Pulse 90 07/31/22 09:48 Resp 16 07/31/22 09:48 BP 146/99 H 07/31/22 09:48 Pulse Ox 99 07/31/22 09:48 O2 Del Method Room Air 07/31/22 09:48 Allergies Allergy/AdvReac Type Severity Reaction Status Date / Time paroxetine AdvReac Mild rash Verified 07/31/22 09:31 sertraline AdvReac Mild rash Verified 07/31/22 09:31 Home Medications Medication Instructions Recorded Confirmed Type duloxetine 60 mg capsule,delayed 60 mg PO HS 12/23/19 07/31/22 History release topiramate 25 mg tablet 50 mg PO BID 12/23/19 07/31/22 History verapamil 180 mg tablet,extended 180 mg PO HS 12/23/19 07/31/22 History release omeprazole magnesium 20 mg 20 mg PO DAILY 12/24/19 07/31/22 History capsule,delayed release (Acid Toy Packer (omeprazole)) aspirin 81 mg tablet,delayed 81 mg PO DAILY 06/13/20 07/31/22 History release (Adult Aspirin Regimen) folic acid 400 mcg tablet 0.4 mg PO HS 11/06/20 07/31/22 History vitamin B complex (B 1 tablet PO DAILY 02/04/22 07/31/22 History Complex-Vitamin B12 tablet) Patient hx anesthesia problems: none Family hx anesthesia problems: none Results Review: All pre-operative results and documents have been reviewed as part of the pre-operative evaluation. [facility] Past Medical History Medical History Chronic GERD Generalized anxiety disorder GERD (gastroesophageal reflux disease) History of blood clots Hypertension Migraine Surgical History Surgical History H/O breast biopsy 07/11/2020: Ultrasound-guided core needle biopsy lt breast (benign fibrocystic changes without atypia) H/O removal of cyst Removed from toe Summer 2021 H/O wisdom tooth extraction S/P endometrial ablation 10/2020 Family History Family History Mother Acute myocardial infarction Hypertension Father Hypertension Blood clotting disorder Grandparent Heart disease Other Adrenal carcinoma Breast cancer Hodgkins disease Social History Social History Social History: the patient lives home alone with her 2 dogs. She desires to have her mother is her durable power bankruptcy attorney for healthcare. The patient desires to be a full code. She has never or had any children. 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 No alcohol marijuana or illicit drugs Smoking packs per day: 1 Smoking cigarettes per day: 20.0 Years smoked: 10 Smoking pack-years: 10.00 Smoking status: Former smoker Tobacco type: cigarettes Second hand tobacco smoke exposure: No Smoking end date: 07/21/12 Alcohol intake: never Substance use: never Substance use type: does not use Living arrangements: with family Occupation/Education: occupation Gender identity (if verbalized by the patient): Female Spiritual care concerns: No Anes - Eval Final PreProcedure Day of Procedure 07/31/22 11:29 Patient weight: morbidly obese Heart: regular rate and rhythm Lungs: clear to auscultation Airway: Mallampati scale class II Neurological: alert and oriented Last oral intake: >/= 8 hours ASA classification: III Emergent: no Anesthetic plan: proceed Anesthesia type and monitoring: general LMA and standard monitoring Results Review: All pre-operative results and documents have been reviewed as part of the pre-operative
[2022-07-31] MEDS: SCOPOLAMINE 1.5 MG PATCH TRANSDERM (11:53)
[2022-07-31] MEDS: ceFAZolin 3 GM/D5W 100 ML 100 ML IVPB (11:55)
--- NOTE | 2022-07-31 12:47 | P.OP_ITS ---
Procedure Note - Detailed Date of Procedure 07/31/22 Pre-op Diagnosis Left breast mass Post-op Diagnosis Same Procedure Performed Mammographic guided wire localized excisional left breast biopsy Surgeon Benja King MD Surgical Device Sales Representative KELLIE Mosley Anesthesia General Indications Patient is a 42-year-old female who has a left breast mass that was previously biopsied by core needle. The results of the biopsy was negative for malignancy. A follow-up 6 month and diagnostic mammogram was performed showing slight enlargement of the mass and she was given a class 3 finding and was recommended she get 6 month mammograms. However the patient does not want undergo serial mammograms and so she wants to proceed with a excision of the mass for diagnosis. Findings Likely fibrocystic changes and gross examination of the specimen. Specimen radiograph showed that the prior biopsy clip and area of interest were within the specimen that was removed and confirmed by the radiologist. Description of Procedure After informed consent was obtained patient brought to the operating room where she was placed in supine position and then general LMA anesthesia was administered. The left breast and anterior chest was then prepped and draped in usual sterile fashion without disturbing the length or orientation of the localizing wire. A time-out was then performed correctly identifying the pa tient as well as procedure to be performed. The localizing wire was the localizing stacy. She was given perioperative IV antibiotics. I then made a curved incision to include the insertion site of the guidewire with a scalpel. Dissection carried down to the dermis of the skin with a scalpel and then with Metzenbaum scissor dissection I dissected down the shaft of the wire to reach the tip. Holding tissue at the tip of the guidewire with an Allis clamp I then took a wide excision of this breast tissue around the tip of the wire. The tissue was fibrous some small cysts within it grossly consistent with fibrocystic changes. Once the tissue at the tip of the wire was excised out I placed it on a specimen grid and was sent to Radiology for specimen radiograph. The radiologist confirmed that the prior biopsy clip and area of interest was within the breast tissue that was submitted. I then proceeded to close incision after achieving hemostasis utilizing electrocautery. Interrupted 3-0 plain gut sutures was used in the parenchyma of the breast. This is followed by interrupted 3-0 plain gut sutures in the breast capsule. The skin edges were then approximated utilizing a running subcuticular 4-0 Monocryl suture. The incision was then cleaned and then skin glue 4x4 gauze and a surgical bra was used for final dressing. The patient tolerated the procedure well no complications. All sponges, needles, and instrument counts were correct at the end procedure. EBL was _10__cc. The patient was awakened and taken to recovery in stable and satisfactory condition. Implants None Estimated Blood Loss 10 Drains No Packing No Pathology Yes (Breast tissue to pathology) Complications No immediate complications Condition Stable Disposition PACU [facility] Billing Surgery - Charge Forward: Surgery Billing
[2022-07-31 12:57] VITALS: BP 138/82; PULSE 87; RESP 18; TEMP 36.2; O2SAT 100
[2022-07-31] MEDS: LIDO 1%/EPINEPHRINE 1:100,000 50 ML VIAL 25 ML INFILTRATE (13:00)
[2022-07-31 13:10] VITALS: BP 141/85; PULSE 82; RESP 16; O2SAT 100
[2022-07-31 13:25] VITALS: BP 143/85; PULSE 90; RESP 16; O2SAT 98
[2022-07-31 13:31] VITALS: BP 144/85; PULSE 83; RESP 16
[2022-07-31 14:00] VITALS: BP 132/80; PULSE 86; RESP 16
== END 2022-07-31 14:10 | disposition home or self-care (01) ==
PROVIDERS: PCP Internal Medicine; Visit Provider Surgery
PROC: (CPT 19125; principal; 2022-07-31 12:00)
DX: N60.12 Diffuse cystic mastopathy of left breast (principal); I10 Essential (primary) hypertension; K21.9 Gastro-esophageal reflux disease without esophagitis; F41.1 Generalized anxiety disorder; Z79.82 Long term (current) use of aspirin; Z87.891 Personal history of nicotine dependence; E66.01 Morbid (severe) obesity due to excess calories; Z68.41 Body mass index [BMI] 40.0-44.9, adult
CPT/HCPCS: 19125; 19281; 76098; 88307; A9270; C1769; J0690; J1100; J1885; J2250; J2405; J2704; J3010; J7120; L8000

== ENCOUNTER 2022-08-26 10:42 | Outpatient (CLI) | payer OTHER, SELFPAY ==
[2022-08-26 11:02] LABS: Basophils Absolute Auto 0.09 K/mm3 (0.00-0.10); Basophils Percent Auto 1.2 % (0.0-1.0); Eosinophils Absolute Auto 0.32 K/mm3 (0.02-0.50); Eosinophils Percent Auto 4.4 % (1.0-6.0); Hematocrit 41.9 % (35.0-49.0); Hemoglobin 13.1 g/dL (12.0-15.0); Immature Granulocyte Absolute 0.03 K/mm3 (0.00-0.00); Immature Granulocyte Percent A 0.4 % (0.0-0.0); Lymphocytes Absolute Auto 2.24 K/mm3 (1.10-4.50); Mean Corpuscular HGB Conc 31.3 g/dL (32.0-36.0); Mean Corpuscular Hemoglobin 29.9 pg (27.0-31.0); Mean Corpuscular Volume 95.7 fL (78.0-102.0); Mean Platelet Volume 9.6 fl (9.2-11.8); Monocytes Absolute Auto 0.35 K/mm3 (0.10-0.90); Monocytes Percent Auto 4.8 % (2.0-11.0); Neutrophils Absolute Auto 4.2 K/mm3 (1.7-7.2); Neutrophils Percent Auto 58.2 % (50.0-70.0); Platelet Count Result 260 K/mm3 (150-420); Red Blood Count 4.38 M/mm3 (4.20-5.40); White Blood Count 7.2 K/mm3 (4.8-10.8)
[2022-08-26 11:03] LABS: Appearance Urine Clear (Clear); Bilirubin Urine Negative (Negative); Blood Urine Negative (Negative); Color Urine Light Yellow (Yellow); Glucose Urine UA Negative (Negative); Ketones Urine Negative (Negative); Leukocyte Esterase Ur Negative LEU/UL (Negative); Nitrate Urine Negative (Negative); Protein Urine Negative (Negative); Specific Grav Ur 1.025 (1.010-1.020); Urobilinogen Urine 0.2 mg/dL (0.2-1.0); pH Urine 5.5 (5.0-8.0)
[2022-08-26 11:04] LABS: Add Urine Microscopic? NO
[2022-08-26 11:10] LABS: Hemoglobin A1C 5.4 % (<5.7)
[2022-08-26 11:47] LABS: Rheumatoid Factor Screen Negative (Negative)
[2022-08-26 12:06] LABS: Erythrocyte Sedimentation Rate 18 mm/hr (0-15)
[2022-08-26 12:24] LABS: Alanine Aminotransferase 30 U/L (14-59); Albumin Level 3.9 g/dL (3.4-5.0); Alkaline Phosphatase 95 U/L (46-116); Anion Gap 10 mmol/L (8-16); Aspartate Amino Transferase 15 U/L (15-37); Bilirubin,Total 0.2 mg/dL (0.00-1.00); Blood Urea Nitrogen 14 mg/dL (7-18); CRP 1.6 mg/dL (0.0-0.9); Calcium 9.2 mg/dL (8.5-10.1); Carbon Dioxide 25 mmol/L (21-32); Chloride 106 mmol/L (98-108); Cholesterol 229 mg/dL (0-200); Estimated Glomerular Filt Rate 57; Free T4 Free Thyroxine 0.83 ng/dL (0.76-1.46); Glucose 93 mg/dL (70-99); HDL Direct 78 mg/dL (40-60); LDL Cholesterol Calculated 126 mg/dL (<130); Osmolality Calculated 292 mOsm/kg (285-295); Potassium 4.1 mmol/L (3.5-5.1); Sodium 141 mmol/L (136-145); Thyroid Stimulating Hormone 1.64 uIU/mL (0.36-3.74); Total Protein 7.1 g/dL (6.4-8.2); Triglycerides 126 mg/dL (0-150); Uric Acid 4.3 mg/dL (2.6-6.0)
[2022-08-26 12:25] LABS: Folic Acid > 20.0 ng/mL (8.6->20); Vitamin B12 > 2000 pg/mL (193-986)
[2022-08-29 05:20] LABS: Insulin Level Total 6.8 uIU/mL (<=19.6); Thyroid Peroxidase Antibodies 2 IU/mL (<9)
[2022-08-30 12:58] LABS: Cyclic Citrullinated Peptide <16 Units (<20)
== END 2022-08-26 10:43 | disposition home or self-care (01) ==
PROVIDERS: PCP Physician Assistant; Visit Provider Physician Assistant
DX: Z13.220 Encounter for screening for lipoid disorders (principal); Z13.1 Encounter for screening for diabetes mellitus; Z79.899 Other long term (current) drug therapy; M25.50 Pain in unspecified joint; Z13.29 Encounter for screening for other suspected endocrine disorder; Z68.42 Body mass index [BMI] 45.0-49.9, adult
CPT/HCPCS: 36415; 80053; 80061; 81003; 82607; 82746; 83036; 83525; 84439; 84443; 84481; 84550; 85025; 85652; 86038; 86140; 86376; 86430; 86800

== ENCOUNTER 2023-03-15 10:07 | Outpatient (CLI) | payer OTHER, SELFPAY ==
[2023-03-15 10:24] LABS: Basophils Absolute Auto 0.1 K/mm3 (0.0-0.1); Basophils Percent Auto 1.1 % (0.2-1.2); Eosinophils Absolute Auto 0.6 K/mm3 (0-0.3); Eosinophils Percent Auto 7.9 % (0-4.4); Hematocrit 39.8 % (37.0-47.0); Hemoglobin 12.5 g/dL (12.0-15.0); Immature Granulocyte Absolute 0.01 K/mm3 (0.00-0.031); Immature Granulocyte Percent A 0.1 % (0-0.5); Lymphocytes Percent Auto 28.7 % (18.3-44.2); Mean Corpuscular HGB Conc 31.4 g/dl (32-36); Mean Corpuscular Hemoglobin 29.1 pg (26-34); Mean Corpuscular Volume 92.6 fl (80-100); Mean Platelet Volume 9.2 fl (7.4-10.4); Monocytes Absolute Auto 0.5 K/mm3 (0.1-0.6); Neutrophils Absolute Auto 3.9 K/mm3 (1.3-6.7); Neutrophils Percent Auto 55.2 % (45.5-73.1); Platelet Count Result 250 k/mm3 (150-375); Red Cell Distribution Width 12.7 % (11.5-14.5)
[2023-03-15 11:02] LABS: Alanine Aminotransferase 19 U/L (6-35); Alkaline Phosphatase 89 U/L (38-126); Anion Gap 8 mmol/L (8-16); Aspartate Amino Transferase 23 U/L (14-36); Bilirubin,Total 0.5 mg/dL (0.2-1.3); Blood Urea Nitrogen 11 mg/dL (7-17); Calcium 9.4 mg/dL (8.4-10.2); Carbon Dioxide 23 mmol/L (22-30); Chloride 107 mmol/L (98-107); Estimated Glomerular Filt Rate 49; Glucose 98 mg/dL (65-110); Potassium 4.5 mmol/L (3.4-5.0); Sodium 138 mmol/L (137-145)
[2023-03-17 21:00] LABS: Homocysteine 8.7 umol/L (<10.4)
== END 2023-03-15 10:08 | disposition home or self-care (01) ==
LOC: ANHLAB 10:09
PROVIDERS: PCP Physician Assistant; Visit Provider Internal Medicine Hematology & Oncology
DX: D73.5 Infarction of spleen (principal)
CPT/HCPCS: 36415; 80053; 83090; 85025

== ENCOUNTER 2023-04-01 14:51 | Outpatient (CLI) | payer OTHER, SELFPAY ==
--- NOTE | ~2023-04-01 | CT_ITS ---
EXAMINATION: CT abdomen w con DATE: 04/01/2023 15:40 INDICATION: Splenic infarct. TECHNIQUE: Computed tomography (CT) of the abdomen was performed with 100 mL Omnipaque 350 intravenou s contrast. Automated exposure control and iterative reconstruction technique were employed. The dose -length product was 1076.79 mGy-cm. COMPARISON: CT abdomen 03/08/20 FINDINGS: The visualized portions of the lung bases demonstrate chronic 4 mm and 3 mm nodules in left lower lobe, likely benign. No pleural effusion. The heart size is normal. No pericardial effusion. T he liver, gallbladder, spleen, pancreas, adrenal glands, and left kidney are normal. There is a 5 mm cyst in right kidney. There are no dilated loops of bowel. The appendix is normal. There are no patho logically enlarged lymph nodes. There is no free intraperitoneal fluid. There is mild thoracic spondy losis. IMPRESSION: 1. Normal spleen. Reviewed, dictated and finalized at location A. RT/EXPORT SPECIALIST IMPRESSION: 1. Normal spleen.
[2023-04-01 15:29] LABS: Estimated Glomerular Filt Rate 54
== END 2023-04-01 14:52 | disposition home or self-care (01) ==
PROVIDERS: PCP Physician Assistant; Visit Provider Internal Medicine Hematology & Oncology
DX: D73.5 Infarction of spleen (principal)
CPT/HCPCS: 74160; Q9967

== ENCOUNTER 2023-05-01 10:04 | Outpatient (CLI) | payer OTHER, SELFPAY ==
[2023-05-01 10:20] LABS: Basophils Absolute Auto 0.09 K/mm3 (0.00-0.10); Basophils Percent Auto 1.3 % (0.0-1.0); Eosinophils Absolute Auto 0.29 K/mm3 (0.02-0.50); Eosinophils Percent Auto 4.2 % (1.0-6.0); Hematocrit 39.1 % (35.0-49.0); Hemoglobin 12.3 g/dL (12.0-15.0); Immature Granulocyte Absolute 0.02 K/mm3 (0.00-0.00); Immature Granulocyte Percent A 0.3 % (0.0-0.0); Lymphocytes Absolute Auto 2.02 K/mm3 (1.10-4.50); Lymphocytes Percent Auto 29.1 % (18.0-42.0); Mean Corpuscular HGB Conc 31.5 g/dL (32.0-36.0); Mean Corpuscular Hemoglobin 27.9 pg (27.0-31.0); Mean Corpuscular Volume 88.7 fL (78.0-102.0); Mean Platelet Volume 9.2 fl (9.2-11.8); Monocytes Absolute Auto 0.39 K/mm3 (0.10-0.90); Monocytes Percent Auto 5.6 % (2.0-11.0); Neutrophils Absolute Auto 4.1 K/mm3 (1.7-7.2); Neutrophils Percent Auto 59.5 % (50.0-70.0); Platelet Count Result 270 K/mm3 (150-420); Red Blood Count 4.41 M/mm3 (4.20-5.40); White Blood Count 6.9 K/mm3 (4.8-10.8)
[2023-05-01 10:29] LABS: Hemoglobin A1C 5.1 % (<5.7)
[2023-05-01 11:18] LABS: Alanine Aminotransferase 17 U/L (14-59); Albumin Level 3.6 g/dL (3.4-5.0); Alkaline Phosphatase 86 U/L (46-116); Anion Gap 14 mmol/L (8-16); Aspartate Amino Transferase 15 U/L (15-37); Bilirubin,Total 0.3 mg/dL (0.00-1.00); Blood Urea Nitrogen 11 mg/dL (7-18); Calcium 8.5 mg/dL (8.5-10.1); Carbon Dioxide 19 mmol/L (21-32); Chloride 105 mmol/L (98-108); Cholesterol 240 mg/dL (0-200); Estimated Glomerular Filt Rate 52; Ferritin 11 ng/mL (8-252); Free T4 Free Thyroxine 1.02 ng/dL (0.76-1.46); Glucose 101 mg/dL (70-99); HDL Direct 86 mg/dL (40-60); Iron 31 ug/dL (50-170); LDL Cholesterol Calculated 137 mg/dL (<130); Osmolality Calculated 285 mOsm/kg (285-295); Percent Iron Saturation 9 % (12-57); Potassium 4.1 mmol/L (3.5-5.1); Sodium 138 mmol/L (136-145); Thyroid Stimulating Hormone 1.36 uIU/mL (0.36-3.74); Total Protein 6.7 g/dL (6.4-8.2); Triglycerides 85 mg/dL (0-150); Vitamin B12 1703 pg/mL (193-986)
[2023-05-01 11:20] LABS: Folic Acid > 20.0 ng/mL (8.6->20)
[2023-05-04 21:02] LABS: Vitamin D 25 Hydroxy 15 ng/mL (30-100)
== END 2023-05-01 10:05 | disposition home or self-care (01) ==
PROVIDERS: PCP Physician Assistant; Visit Provider Physician Assistant
DX: Z13.29 Encounter for screening for other suspected endocrine disorder (principal); Z13.1 Encounter for screening for diabetes mellitus; R53.83 Other fatigue; Z13.220 Encounter for screening for lipoid disorders
CPT/HCPCS: 36415; 80053; 80061; 82306; 82607; 82728; 82746; 83036; 83540; 83550; 84439; 84443; 85025

== ENCOUNTER 2023-05-10 10:02 | Outpatient (CLI) | payer OTHER, SELFPAY ==
--- NOTE | 2023-05-24 18:46 | WPDHOMESLEEP ---
Sleep Study - Home Unattended Date of Study: 05/10/23 Ordering Provider: Kelsey Sapp, PAJanelle Interpreting Provider: Araceli Pittman MD [place] Sleep Study Type: Watch PAT Height: 1.65 m Weight: 127.006 kg Body Mass Index: 46.5 Neck Circumference (inches): 14.5 [place]: 3 Reason for Sleep Study Fatigue Sleep History Lissette Guzman is a 43-year-old woman with fatigue. She never awakens from sleep feeling short of breath. She occasionally wakes at night with heartburn, belching or coughing.??She occasional snores loudly enough that others complain. She occasionally has trouble sleeping when she has a cold. She never wakes up gasping for breath during the night. She never has breathing problems at night. She occasionally sweats excessively at night. She never notices her heart pounding or beating irregularly during the night. She frequently falls asleep during the day. She never falls asleep involuntarily, never falls asleep while driving. She never experiences loss of muscle tone with strong emotion. She never feels paralyzed on waking or falling asleep. She never experiences vivid dreams upon waking or falling asleep. She never feels afraid of going to sleep. She never has nightmares. She occasionally recalls her dreams. She rarely has thoughts racing through her mind. She occasionally feels sad, depressed or anxious. She occasional notices parts of her body jerk however never kicks during the night. She rarely feels crawling or aching feelings in her legs. She rarely feels leg pain at night. She never has morning jaw pain, rarely grinds her teeth at night. She occasionally feels bothered by pain during the day, is rarely awakened by pain during the night. She occasionally wakes up feeling stiff in the morning, occasionally wakes feeling sore or achy in the morning. She occasionally awakens with pain in her neck, spine, or joints. She has gained weight in the last year. Normal bedtime is between 9:30 p.m. and 10:00 p.m., waking twice at night for 10-20 minute to go to the bathroom and get a drink. She wakes at 6:00 a.m., getting on average 5 hours of sleep at night. Sometimes she awakens at night to help 1 of her parents. Sometimes she wakes up to feed the dogs, take them out and then returns to bed. She may take a nap in the afternoon or evening however a short nap lasting 10-15 minutes is not refreshing. She is usually drowsy for an hour after waking. She feels better in the afternoon compared to other times of day. Habits:??Tobacco: Former smoker. Caffeine: 1 or 2 servings per day. Alcohol: None. Recreational substances: none [facility] Past Medical History Medical History Chronic GERD Generalized anxiety disorder GERD (gastroesophageal reflux disease) History of blood clots Hypertension Migraine Surgical History Surgical History H/O breast biopsy 07/11/2020: Ultrasound-guided core needle biopsy lt breast (benign fibrocystic changes without atypia) H/O removal of cyst Removed from toe Summer 2021 H/O wisdom tooth extraction History of breast biopsy u/s guided wire localized exc lt breast bx performed (07/31) Hx of breast biopsy S/P endometrial ablation 10/2020 Family History Family History Mother Acute myocardial infarction Hypertension Father Hypertension Blood clotting disorder Grandparent Heart disease Other Adrenal carcinoma Breast cancer Hodgkins disease Social History Social History Social History: the patient lives home alone with her 2 dogs. She desires to have her mother is her durable power document review attorney for healthcare. The patient desires to be a full code. She has never or had any children. 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 N
[2023-05-24 18:49] VITALS: BMI 46.5
== END 2023-05-11 07:30 | disposition home or self-care (01) ==
LOC: ANHCSM 10:04
PROVIDERS: PCP Physician Assistant; Visit Provider Physician Assistant
DX: G47.33 Obstructive sleep apnea (adult) (pediatric) (principal); Z68.42 Body mass index [BMI] 45.0-49.9, adult
CPT/HCPCS: 95800

== ENCOUNTER 2024-04-21 13:58 | Outpatient (CLI) | payer OTHER, SELFPAY ==
--- OUTSIDE RECORDS SUMMARY | 2024-04-21 14:01 | XMS_ITS | Patient Health Record ---
Author Organization [facility] Address [address] [place] [address] Care Team Providers Care Lift Driver Name Role Phone Marvin Blanco Primary Care Provider Reason For Referral No Information Immunizations Vaccine Route Administration Date Status Comme nts COVID-19 Moderna 2nd IM Intramuscular 05/02/2020 Administered EUA provided. Screening and consent reviewed and signed. Pt tolerated well. COVID-19 Moderna 1ST IM Intramuscular 04/04/2020 Administered EUA date 0. Screening reviewed and consent signed. Patient tolerated well. Plan Of Treatment No Information Insurance Providers Payer Name Payer Address Payer Phone Subscriber Number Group Number Insured Name Patient Relationship to Insured Coverage Start Date Coverage End Date FORMERLY NAMED [facility] [address] [place] [address] [id number] Lissette Guzman Self - patient is the insured 1
--- OUTSIDE RECORDS SUMMARY | 2024-04-21 14:01 | XMS_ITS | Continuity of Care Document ---
Author Organization [facility] Address [address] [place] [address] Phone Care Team Providers Care Surface Supervisor Name Role Phone Tariq Dwyer MD Unavailable Unavailable Allergies, Adverse Reactions, Alerts Substance Reaction Status Criticality PAROXETINE HCL Active No Informatio n SERTRALINE HCL (severe) Active No Informatio n Medications Medication Instructions Dosage Effective Dates (start - stop) Status Comments Suprep Bowel Prep Kit 17.5 gram-3.13 gram-1.6 gram oral solution use as directed - Active 1 kit Viberzi 100 mg tablet take 1 tablet by oral route 2 times every day 100 MG - Active omeprazole 20 mg tablet,delayed release take 1 tablet by oral route every day 1 tablet - Active Xifaxan 550 mg tablet take 1 tablet by oral route 3 times every day 550 MG - Active verapamil ER (SR) 180 mg tablet,extended release take 1 tablet by oral route every day with food 180 MG - Active duloxetine 60 mg capsule,delayed release take 1 capsule by oral route every day 60 MG - Active Advance Directives Directive Yes / No Effective Date File Name No Information Encounters Encounter Description Practice Location Reason(s) For Visit Diagnoses Date Provider Providers Copied on Encounter [facility], [address], [place], [place], [id number] , tel: [phone] [facility] No Information 9 Yuliya Potter. [address], [address], [place], [address], . tel: [phone] [facility], [address], [place], [place], [id number] , tel: [phone] [facility] [place] Ischemic colitis May- 9 Magtamarpilar PalomoTariq. [address], [address], [place], [place], [facility], [place]. tel: [phone] [facility], [address], [place], [place], [address] , tel: [phone] [facility] No Information 9 hortencia Potter. [address], [address], [place], [place], [facility], [place]. tel: [phone] [facility], [address], [place], [place], [id number] , tel: [phone] [facility] Irritable bowel syndrome with diarrhea 7 Maghortencia Tariq. [address], [address], [place], [place], [facility], [place]. tel: [phone] Referring Provider: Tariq Dwyer, [address], [place], [address]. tel:[phone] [facility], [address], [place], [place], [id number] , tel: [phone] [facility] Irritable bowel syndrome with diarrheaGastroesop hageal reflux disease without esophagitis 5 Lamarpilar Tariq. [address], [address], [place], [place], [facility], [place]. tel: [phone] Referring Provider: Ruba Hager, [address] [place], [address]. tel:[phone] Family History Family Member Type Diagnosis Age At Onset No Information Payers Payer name Insurance type Covered alliance party ID Authoriza tion(s) No Information Social History Type Description Quantity Date Captured Comments Alcohol Use Details Unknown Caffeine Use Details Unknown Tobacco Use Status No Information Smoking Status No Information Sex Female Chief Complaint And Reason For Visit No Information Reason For Referral Reason For Referral No Information History Of Present Illness Encounter Date Complaint History Of Prese nt Illness No Information Functional Status Date Functional Assessmen t No Information Instructions Date Instruction Additional Infor mation No Information Assessments Type Assessment Date No Information Patient Care Teams Name Effective Dates (start - stop) Status Members No Information
--- OUTSIDE RECORDS SUMMARY | 2024-04-21 14:01 | XMS_ITS | Encounter Summary ---
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
--- OUTSIDE RECORDS SUMMARY | 2024-04-21 14:02 | XMS_ITS | Clinical Summary ---
Author Organization [facility] Address [address] [place] [address] Care Team Providers Care Plate Corrector Name Role Phone Jd Alaniz MD Primary Care Provider [phone] Allergies Active Allergy Reactions Criticality Noted Date Comments Paroxetine Rash Medium 03/04/2020 Sertraline Rash Medium 03/04/2020 Medications DULoxetine (CYMBALTA) 60 mg Capsule, Delayed Release(E.C.) 04/17/2019 Activ e SUMAtriptan (IMITREX) 100 mg tablet Take one tabet po q2h prn as soon as feel headache is coming. No more than 2 tablets in 24 hours. 05/03/2019 Active verapamiL (CALAN SR) 180 mg Sustained Release tablet 02/19/2020 Acti ve omeprazole (PriLOSEC) 20 mg Capsule, Delayed Release(E.C.) Take 20 mg by mouth daily. Active topiramate (TOPAMAX) 25 mg tablet 2 tablets (50 mg ) po bid. 08/26/2020 Active aspirin (ECOTRIN EC) 81 mg Tablet, Delayed Release (E.C.) Take 81 mg by mouth daily. Active cyanocobalamin 1,000 mcg Tablet Take 1,000 mcg by mouth daily. Active folic acid (FOLVITE) 400 mcg Tablet Take 800 mcg by mouth daily. 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 Encounters Date Type Department Care Team Description 04/18/2024 External Device Data ST[facility] ABSTRACTION Provider, Abstract 04/11/2024 External Device Data [facility] ABSTRACTION Provider, Abstract 03/31/2024 Telephone [facility]ology [address] [place] [address] Gavin Jimenez MD labs for appointment 03/22/2024 External Device Data [facility] ABSTRACTION Provider, Abstract 03/22/2024 External Device Data [facility] ABSTRACTION Provider, Abstract 02/01/2024 External Device Data [facility] ABSTRACTION Provider, Abstract from Last 3 Months Family History Medical History Relation Name Comments Healthy Brother Blood Disorder Father Healthy Father Heart Disease Mother Relation Name Status Comments Brother Alive Father Alive Mother Alive Social History Tobacco Use Types Packs/Day Years Used Date Smoking Tobacco: Never Smokeless Tobacco: Never Tobacco Cessation:Counseling Given: Not Answered Alcohol Use Standard Drinks/Week Comments Never 0 (1 standard drink = 0.6 oz pur e alcohol) Comments No Sex and Gender Information Value Date Recorded Sex Assigned at Not on file Legal Sex Female 5:09 AM ADMINISTRATIVE STAFF SUPERVISOR Gender Identity Not on file Sexual Orientation Not on file Last Filed Vital Signs Vital Sign Reading Time Taken Comments Blood Pressure 131/77 04/01/2023 1:42 PM ADMINISTRATIVE STAFF SUPERVISOR Pulse 78 04/01/2023 1:42 PM ADMINISTRATIVE STAFF SUPERVISOR Temperature 36.3 C (97.3 F) 03/17/2022 3:49 PM ADMINISTRATIVE STAFF SUPERVISOR Respiratory Rate 12 04/01/2023 1:42 PM ADMINISTRATIVE STAFF SUPERVISOR Oxygen Saturation 97% 04/01/2023 1:42 PM ADMINISTRATIVE STAFF SUPERVISOR Inhaled Oxygen Concentration - - Weight 127.9 kg (282 lb) 04/01/2023 1:42 PM ADMINISTRATIVE STAFF SUPERVISOR Height 165.1 cm (5' 5 ) 09/18/2021 3:18 PM CDT Body Mass Index 46.93 09/18/2021 3:18 PM CDT Plan of Treatment Upcoming Encounters Date Type Department Care Team (Late st Contact Info) Description 05/01/2024 3:30 PM ADMINISTRATIVE STAFF SUPERVISOR Office Visit [facility] Oncology [facility] Hematology [address] [place] [address] Gavin Jimenez [facility] [address] [address] [place] [address] Health Maintenance Due Date Last Done Comments DTAP/TDAP/TD VACCINES (1 - Tdap) 1999 HEPATITIS B VACCINES (1 of 3 - 19+ 3-dose series) 1999 CERVICAL CANCER SCREENING 2010 BREAST CANCER SCREENING 10/22/2021 10/22/2020 INFLUENZA VACCINE (#1) 2023 12/25/2019 COVID-19 Vaccine (3 - 2023-2 5 season) 2023 05/02/2020, 04/04/2020 Preventative Visit- Commercial 03/01/2024 HPV VACCINES Aged Out No longer eligi ble based on patient's age to complete this topic Procedures Procedure Name Priority Date/Time Associated Diagnosis Comments MAMMO 3D BRUNO DIAGNOSTIC YAZMIN AT W OR WO CAD Routine 10/22/2020 Abnormal breast exam from Last 3 Months or Most Recently Relevant to Health Maintenance Results * MAMMO DIAG BILAT 3D BRUNO W OR WO CAD (10/22/2020) Anatomical Region Laterality Modality Breast Bilateral Other Gavin Jimenez MD MAMMO ORDERABLES Final Result from Last 3 Months or Most Recently Relevant to Health Maintenance Insurance [facility] CHOICE [id number] Care Teams Plate Corrector Relationship Specialty Start Date End Date Jd Alaniz MD [address] [place] [address] PCP - General Internal Medicine 03/27/21
--- OUTSIDE RECORDS SUMMARY | 2024-04-21 14:02 | XMS_ITS | Continuity of Care Document ---
Author Organization [facility] Address [address] [facility] [address] [place] [address] Insurance Providers Payer Plan Claims Address Claims Phone Policy Number Group Number Relation Employer Guarantor Name Guarantor Guarantor Address [place] [id number] Self jose miguel montes 1980 [address], [place] [address] [facility] [id number] [facility] [id number] Self jose miguel montes 1980 [address], [place] [address] BCBS OOS BCBS OOS [address] [address] tel:[phone] Marek montes 1980 [address], [place] [address] Problems Condition ICD9 code ICD10 code SNOMED code Start Date End Date S tatus Encounter for screening for other metabolic disorders Z13.228 Results No Results Allergies, adverse reactions, alerts No known allergies and adverse reactions Medications No administered medications reported Vital Signs No vital signs reported Social History No smoking Hx information available
--- OUTSIDE RECORDS SUMMARY | 2024-04-21 14:02 | XMS_ITS | Referral Summary ---
Author Organization [facility] Address [address] [place] [address] Care Team Providers Care Arabic Professor Name Role Phone Jd Alaniz MD Primary Care Provider [phone] Allergies Active Allergy Reactions Criticality Noted Date Comments Paroxetine Sertraline Medications DULoxetine DR (CYMBALTA) 60 mg capsule 0 Active verapamil SR (CALAN SR) 180 mg CR tabletIndication s:Migraine without aura and without status migrainosus, not intractable 0 Active etonogestreL-eth inyl estradioL (NUVARING, ELURYNG) 0.12-0.015 mg/24 hr vaginal ring Insert 1 each into the vagina every 28 (twenty-eight) days Insert vaginally and leave in place for 3 consecutive weeks, then remove for 1 week. Active aspirin 81 mg enteric coated tablet Take 81 mg by mouth daily Active kpuefubg-gefk-TW -calcium-mins 18 mg iron-400 mcg-450 mg Ca tablet Take by mouth Active folic acid (FOLVITE) 400 mcg tablet Take 800 mcg by mouth daily Active cyanocobalamin (Vitamin B-12) 1,000 mcg tabletIndication s:Prevention of Vitamin B12 Deficiency Take 1,000 mcg by mouth daily Active SUMAtriptan (IMITREX) 100 mg tabletIndication s:Migraine Take one tabet po q2h prn as soon as feel headache is coming. No more than 2 tablets in 24 hours. 9 tablet 11 2 Active topiramate (TOPAMAX) 50 mg tablet TAKE ONE TABLET BY MOUTH TWICE A DAY 180 tablet 3 3 Active Active Problems Problem Noted Date Diagnosed Date Visual disturbance 07/11/2019 Migraine without aura and wi thout status migrainosus, not intractable 05/03/2019 Abnormal mammogram 11/08/2015 Discharge from nipple 07/26/2015 Social History Tobacco Use Types Packs/Day Years Used Date Smoking Tobacco: Former Alcohol Use Standard Drinks/Week Comments Not Currently 0 (1 standard drink = 0.6 oz pur e alcohol) Personal Safety Answer Date Recorded Getting School Help Needed Not on file 04/28 Comments Unknown Sex and Gender Information Value Date Recorded Sex Assigned at Not on file Legal Sex Female 11:34 AM COPS Gender Identity Not on file Sexual Orientation Not on file Last Filed Vital Signs Vital Sign Reading Time Taken Comments Blood Pressure 126/84 01/19/2022 10:18 AM COPS Pulse 71 01/19/2022 10:18 AM COPS Temperature 36.9 C (98.4 F) 04/25/2019 1:05 PM COPS Respiratory Rate 16 04/25/2019 3:31 PM COPS Oxygen Saturation 100% 01/19/2022 10: 18 AM COPS Inhaled Oxygen Concentration - - Weight 129.4 kg (285 lb 3.2 oz) 022 10:18 AM COPS Height 165.1 cm (5' 5 ) 01/19/2022 10:1 8 AM COPS Body Mass Index 47.46 01/19/2022 10:18 AM COPS Plan of Treatment Not on file Insurance [facility] ACCESS [facility] Care Teams Arabic Professor Relationship Specialty Start Date End Date Jd Alaniz MD PCP - General 05/25/18
--- OUTSIDE RECORDS SUMMARY | 2024-04-21 14:02 | XMS_ITS | Data Portability ---
Author Organization [facility] Address [address] [facility] [place] [address] Care Team Providers Care [place] Representative Name Role Phone EDUARDO MCCLELLAN Primary Care Provider Unavailab le Assessment Encounter Date Assessment Date Assessment LastModified by Organization Details LastModified Time 04/27/2023 04/27/2023 Mammogram due may 2023 from gyne Not available 04/27/2023 15:39:48 11/04/2023 11/04/2023 Mammogram due may 2023 from gyne Not available 11/04/2023 15:11:07 Plan of Treatment Reminders Order Date Submit Date Provider Last Modified By Organization Details Last Modified Time Details Appointments ANY 15 2024 10:30A M POOJA Iraheta Not available Not available Not available Lab influenza virus A + B + SARS-CoV- 2 (COVID19) Ag panel, rapid IA, upper respirato ry specimen 2023 024 [email or web address] In-Office Order, Internal Use Only DO Not Attach Compendium DO Not Attach Compendium, Do Not Delete/merge, [id number] 02/22/2024 12:08:21 rapid strep group A, throat 2023 024 [email or web address] In-Office Order, Internal Use Only DO Not Attach Compendium DO Not Attach Compendium, Do Not Delete/merge, [id number] 02/22/2024 12:08:21 TSH + free T4, serum 2023 024 [facility], [address], [place], [address], 05/11/2023 13:07:09 lipid panel, serum 2023 024 [email or web address], [address], [place], [address], 05/27/2023 16:22:12 HbA1c (hemoglob in A1c), blood 2023 024 [email or web address] [facility], [address], [place], [address], 05/27/2023 14:09:46 CBC w/ auto diff 2023 024 [email or web address], [address], [place], [address], 05/27/2023 16:22:12 CMP, serum or plasma 2023 024 [facility], [address], [place], [address], 05/11/2023 13:07:09 vitamin B12 + folate, serum or blood 2023 024 [email or web address], [address], [place], [address], 05/27/2023 16:22:12 iron + TIBC + ferritin, serum 2023 024 [email or web address] [facility], [address], [place], [address], 05/27/2023 16:22:12 vitamin D, 25-hydrox y, total, serum 2023 024 [facility], [address], [place], [address], 05/04/2023 23:30:26 Referral None recorded. Procedures None recorded. Surgeries None recorded. Imaging home sleep study 2023 [facility] ([facility]), [address], [place], [address], 06/03/2023 12:11:08 Medication Orders amoxicill in 875 mg-potass ium clavulana te 125 mg tablet 2023 024 [id number], [address], [place], [place], [id number], 02/22/2024 10:03:17 fluconazo le 150 mg tablet 2023 024 [id number], [address], [place], [place], [id number], 02/22/2024 10:03:15 Ubrelvy 100 mg tablet 2023 024 [facility], [address], [place], [id number], 11/04/2023 15:32:43 amoxicill in 875 mg-potass ium clavulana te 125 mg tablet 2023 024 [email or web address] [facility], [address], [place], [id number], 02/22/2024 09:38:24 fluconazo le 150 mg tablet 2023 024 [email or web address] [facility], [address], [place], [id number], 02/22/2024 09:38:31 valacyclo vir 1 gram tablet 2023 024 [facility], [address] [place], [place], [id number], 04/27/2023 15:42:30 Patient TargetsNo targets recorded. Patient Instructions Encounter Date Encounter Id Patient Instructions Last Modified By Organization Details Last Modified Time 11/04/2023 [id number] A healthy lifestyle: care instructions Not available 11/27/2023 21:33:39 Reason for Referral None Reported. Results Created Date Observation Date Name Description Value Unit Range Abnormal Flag Note LastModifiedBy Organization Detail LastModifiedTime 02/22/20 24 02/22/2024 influ mechelle virus A + B + SARS- CoV-2 (COVI D19) Ag panel , rapid IA, upper respi rator y speci men Flu A negati ve Not Available In-Office Order Internal Use Only DO Not Attach Compendium DO Not Attach Compendium, Do Not Delete/merge, [id number] 02/22/2024 10:17:43 02/22/20 24 02/22/2024 influ mechelle virus A + B + SARS- CoV-2 (COVI D19) Ag panel , rapid IA, upper respi rator y speci men Flu B negati ve Not Available In-Office Order Internal Use Only DO Not Attach Compendium DO Not Attach Compendium, Do Not Delete/merge, [id number] 02/22/2024 10:17:43 02/22/20 24 02/22/2024 influ mechelle virus A + B + SARS- CoV-2 (COVI D19) Ag panel , rapid IA, upper respi rator y speci men Rapid SARS CoV 2 Ag, QL IA, respiratory specimen negati ve Not Available In-Office Order Internal Use Only DO Not Attach Compendium DO Not Attach Compendium, Do Not Delete/merge, [id number] 02/22/2024 10:17:43 02/22/20 24 02/22/2024 rapid strep group A, throa t Strep negati ve Not Available In-Office Order Internal Use Only DO Not Attach Compendium DO Not Attach Compendium, Do Not Delete/merge, [id number] 02/22/2024 10:17:43 05/25/19 24 05/24/2023 sleep study , diagn ostic * No observ ation record ed. [email or web address] [facility] [address] [place], [address], 11/27/2023 21:33:49 Result Notes None recorded. Problems Name Problem SNOMED Code Status Onset Date Resolution Date Notes Provider Name and Address Organization Details Recorded Time Body mass index 40+ - severely obese 552461259 Active 2023 Billy Stroud MA null, [place] - [facility] 14:39:31 Obesity 255930063 Active 2023 POOJA Iraheta Attn: Ana Laura lopez,[address] [facility], [place], [address], [facility] 4 21:31:43 Migraine 42356132 Active 2023 POOJA Iraheta Attn: Accountmerritt lopez,[address] [facility], [place], [address], [facility] - [facility] 4 21:32:14 Gastroesophage al reflux disease without esophagitis 884703171 Active 2023 POOJA Iraheta Attn: Accountmerritt g,[address] [facility], [place], [address], [place] - [facility] 4 21:33:12 Long-term drug therapy Active 2023 POOJA Iraheta Attn: Accountmerritt g,[address] [facility], [place], [address], [place] - [facility] 4 21:33:36 Problem Notes None recorded. Procedures Surgical History Date Name Laterality Status Provider Name and Address Organization Details Recorded Time abrasion procedure completed Billy Stroud [place] - [facility] 04/27/2023 15:14:04 Imaging Results Imaging Date Name Status LastModified by Organiz ation Details LastModified Time 05/24/2023 sleep study, diagnostic* completed [email or web address] [facility] [address] [place], [address], 11/27/2023 21:33:49 Procedure Notes None recorded. Medical Equipment None Reported. Allergies No known drug allergies Medications Name Sig Start Date Stop Date Status Note LastModified by Organization Details LastModified Time azithromycin 250 mg tablet TAKE 2 TABLETS (500 MG) BY ORAL ROUTE ONCE DAILY FOR 1 DAY THEN 1 TABLET (250 MG) BY ORAL ROUTE ONCE DAILY FOR 4 DAYS 11/03 completed Not Available Not Available Not Available fluconazole 150 mg tablet TAKE 1 TABLET BY MOUTH FOR 1 DOSE. MAY REPEAT LATER DATE IF NEEDED. active Not Available Not Available No t Available benzonatate 200 mg capsule 04/27 completed Not Available Not Available Not Available valacyclovir 1 gram tablet Take 2 tablets every 12 hours by oral route as needed for 1 day. active Not Available Not Available No t Available prednisone 20 mg tablet Take 2 tablets every day by oral route for 5 days. 11/03 completed Not Available Not Available Not Available verapamil ER (SR) 180 mg tablet,exten ded release Take 1 tablet every day by oral route. active Not Available Not Available No t Available valacyclovir 500 mg tablet 11/03 completed Not Available Not Available Not Available amoxicillin 875 mg tablet 04/27 completed Not Available Not Available Not Available neomycin-denton ymyxin-dexam eth 3.5 mg/mL-10,000 unit/mL-0.1% eye drops 04/27 completed Not Available Not Available Not Available methylpredni solone 4 mg tablets in a dose pack 04/27 completed Not Available Not Available Not Available amoxicillin 875 mg-potassium clavulanate 125 mg tablet TAKE 1 TABLET BY MOUTH EVERY 12 HOURS active Not Available Not Available No t Available esomeprazole magnesium 20 mg capsule,dafne yed release Take 1 capsule every day by oral route. 2023 active Not Available Not Available Not Avai lable oxycodone 5 mg tablet 04/27 completed Not Available Not Available Not Available topiramate 50 mg tablet Take 1 tablet twice a day by oral route. active Not Available Not Available No t Available duloxetine 30 mg capsule,dafne yed release Take 1 capsule every day by oral route. 02/21 completed Not Available Not Available Not Available duloxetine 60 mg capsule,dafne yed release Take 1 capsule every day by oral route for 90 days. active Not Available Not Available No t Available aspirin 81mg active Not Available Not Avail able Not Available ferrous gluconate 324 mg (38 mg iron) tablet Take 1 tablet every day by oral route with meal(s). 11/03 completed Not Available Not Available Not Available cholecalcife rol (vitamin D3) 1,250 mcg (50,000 unit) capsule Take 1 capsule every week by oral route. 2023 active Not Available Not Available Not Avai lable Ubrelvy 100 mg tablet TAKE 1 TAB BY MOUTH AT ONSET OF MIGRAINE . MAY REPEAT IN 2 HOURS IF NEEDED active Not Available Not Available No t Available Vitals Date Recorded Body weight Heart rate Respiratory rate Body temperature Oxygen saturation Oxygen saturation in Arterial blood by Pulse oximetry Body mass index (BMI) Body height Systolic blood pressure Diastolic blood pressure Provider Name and Address Organization Details Last Updated DateTime 4 552215. 27 g 80 /min 18 /min 97.3 [degF] 98 % 98 % 46.1 kg/m2 165.74 cm 119 mm[Hg] 79 mm[Hg] Billy Stroud MA [facility] 4 15:17:52 Date Recorded Body height Body mass index (BMI) Body weight Respiratory rate Oxygen saturation Oxygen saturation in Arterial blood by Pulse oximetry Heart rate Systolic blood pressure Diastolic blood pressure Provider Name and Address Organization Details Last Updated DateTime 4 165.74 cm 42.9 kg/m2 197773. 3 g 18 /min 98 % 98 % 79 /min 122 mm[Hg] 82 mm[Hg] Billy Stroud MA [facility] 4 14:41:28 Date Recorded Body height Body mass index (BMI) Body weight Respiratory rate Heart rate Oxygen saturation Oxygen saturation in Arterial blood by Pulse oximetry Systolic blood pressure Diastolic blood pressure Provider Name and Address Organization Details Last Updated DateTime 4 165.74 cm 43.6 kg/m2 840798. 39 g 18 /min 78 /min 96 % 96 % 116 mm[Hg] 80 mm[Hg] Billy Stroud MA [facility] 4 09:41:01 Date Recorded Body temperature Provider Name a ri Address Organization Details Last Updated DateTime 02/22/2024 98.6 [degF] POOJA Iraheta Attn: Accounting,[address] [place], [address], [facility] 03/01/2024 00:21:38 Social History Question Answer Notes LastModified by Organizat ion Details LastModified Time Tobacco Smoking Status Former Smoker Billy Stroud MA [facility], [place] - [facility] 04/27/2023 15:13:38 Do You Have An Advance Directive? No Information not available 11/04/2023 What Is Your Level Of Alcohol Consumption? None Information not available 04/27/2023 Are You Blind Or Do You Have Difficulty Seeing? No Glasses Information not available 11/04/2023 What Is Your Level Of Caffeine Consumption? Occasional [place] In The AM Information not available 04/27/2023 In The 14 Days Before Symptom Onset, Have You Had Close Contact With A Laboratory-confir med COVID-19 While That Case Was Ill? No Information not available 11/04/2023 In The 14 Days Before Symptom Onset, Have You Had Close Contact With A Person Who Is Under Investigation For COVID-19 While That Person Was Ill? No Information not available 11/04/2023 Have You Been To An Area Known To Be High Risk For COVID-19? No Information not available 11/04/2023 Are You Deaf Or Do You Have Serious Difficulty Hearing? No Information not available 11/04/2023 What Type Of Diet Are You Following? REGULAR Information not available 11/04/2023 Are There Any Guns Present In Your Home? No Information not available 11/04/2023 What Was The Date Of Your Most Recent Tobacco Screening? 02/22/2024 Information not available 02/22/2024 What Is Your Current Pack Years? 10packyears Information not available 04/27/2023 What Is Your Relationship Status? Domestic Partner Information not available 11/04/2023 Do You Use Your Seat Belt Or Car Seat Routinely? Yes Information not available 11/04/2023 Do You Have Smoke And Carbon Monoxide Detectors In Your Home? Yes Information not available 11/04/2023 At What Age Did You Start Smoking Tobacco? 16 Information not available 04/27/2023 How Much Tobacco Do You Smoke? No Information not available 04/27/2023 Do You Use Any Illicit Or Recreational Drugs? No Information not available 04/27/2023 Do You Use Sunscreen Routinely? Yes Information not available 11/04/2023 Has Tobacco Cessation Counseling Been Provided? Yes Information not available 04/27/2023 On What Date Was Tobacco Cessation Counseling Provided? 02/22/2024 Information not available 02/22/2024 How Many Years Have You Smoked Tobacco? 10 Information not available 04/27/2023 Do You Or Have You Ever Used Any Other Forms Of Tobacco Or Nicotine? No Information not available 04/27/2023 Sex: Unknown Functional Status Question Answer Note LastModified by Organization D etails LastModified Time Are you able to care for yourself? Yes Information n ot available 11/04/2023 What is your exercise level? None Information not available 11/04/2023 Mental Status None recorded. Family History Relationship Description Onset Age of this Age Resolved Age Notes LastModified by Organization Details LastModified Time Maternal Grandmother Heart disease [email or web address] Not available 2023 15:11:56 Maternal Grandfather Heart disease tcarterma Not available 2023 15:12:07 Paternal Grandfather Heart disease tcarterma Not available 2023 15:12:11 Paternal Grandmother Heart disease tcarterma Not available 2023 15:12:15 Medical History Condition Response Coronary Artery Disease N Atrial Fibrillation N High Blood Pressure N Thyroid Problems N Kidney or Bladder Problems N Depression Y COPD N Blood Clots Y GI Problems N Skin Problems N Anemia N Heart Attack ([place]) N Diabetes N Anxiety Disorder Y Muscle, Joint, or Bone Problems N Seizures/Epilepsy N Acid Reflux (GERD) N Cancer N Stroke N Allergies N Asthma N High Cholesterol N Hepatitis N Liver Disease N Headaches N Osteoporosis N Heart Failure N Gynecological History Statement/Question Response Menses Monthly Y Current Control Method None Flow Light LMP Approximate Obstetrics History GPAL:G 0 P 0 0 0 0 Type Value Multiple Births 0 Induced 0 Spontaneous 0 Living 0 Ectopics 0 Total 0 Immunizations Vaccine Type Date Status Note Provider Nam e and Address Organization Details Recorded Time MMR 2 completed Billy Str[place], [place] [facility] 02/22/2024 09:38:52 MMR 1 completed Billy Str[place] [facility] 02/22/2024 09:38:52 COVID-19, mRNA, LNP-S, PF, 100 mcg/0.5mL dose or 50 mcg/0.25mL dose 1 completed Billy Str[place], [place] [facility] 02/22/2024 09:38:52 COVID-19, mRNA, LNP-S, PF, 100 mcg/0.5mL dose or 50 mcg/0.25mL dose 1 completed Billy Str[place] [facility] 02/22/2024 09:38:52 COVID-19, mRNA, LNP-S, PF, 100 mcg/0.5mL dose or 50 mcg/0.25mL dose 1 completed Billy Str[place] [facility] 02/22/2024 09:38:52 Tdap 1 completed Billy [place] [facility] 02/22/2024 09:38:52 DTP 6 completed Billy [place] [facility] 02/22/2024 09:38:52 DTP 1 completed Billy [place] [facility] 02/22/2024 09:38:52 DTP 1 completed [place] [facility] 02/22/2024 09:38:52 DTP 2 completed [place] [facility] 02/22/2024 09:38:52 OPV 6 completed Billy [place] [facility] 02/22/2024 09:38:52 OPV 1 completed [place] [facility] 02/22/2024 09:38:52 OPV 1 completed [place] [facility] 02/22/2024 09:38:52 OPV 2 completed Chococarinebryce MaximusKODI barber, [facility] 02/22/2024 09:38:52 Td (adult), 2 Lf tetanus toxoid, preservative free, adsorbed 5 completed Billy Stroud KODI marino, [facility] 02/22/2024 09:38:52 Influenza, split virus, quadrivalent, PF 0 completed Chococarinebryce MaximusKODI barber, [facility] 02/22/2024 09:38:52 Past Encounters Encounter ID Performer Location Encounter Start Date Encounter Closed Date Diagnosis/Indication Diagnosis SNOMED-CT Code Diagnosis ICD10 Code Diagnosis Note [id number] POOJA Iraheta [facility] [address] [place] [address] 04/27/2023 14:44:03 04/27/2023 16:16:22 Herpes labialis 5885585 B00.1 refill on valtrex 1gm as directed PRN Thyroid di sorder screening 341728318 Z13.29 routine thyroid panel labs are due. Diabetes m ellitus screening 094370731 Z13.1 a1c screening due. Fatigue 43038861 R53.83 pt biggest c/o is fatigue. check full fatigue lab screening panel. Cholesterol screening 27 1877970 Z13.220 fasting lipid panel ordered Adult heal th examination 512653137 Z00.01 annual wellness completed Sleep apnea 40470499 G47 .30 refer for home sleep study. Cough 03861898 R05.9 ? related to reflux. boost to nexium 40mg daily. taking two otc. Migraine 32877822 G43.90 9 stable on topiramate and verapamil Long-term drug therapy 217679785 Z79.538 [id number] POOJA Iraheta [facility] [address] [place] [address] 11/04/2023 14:05:33 11/04/2023 15:49:31 Body mass index 40+ - severely obese 076536930 Z68.41 BMI is 42.9 Migraine 21197927 G43.90 9 stable on topiramate and verapamil. P.r.n. trial script of Ubrelvy 100 mg given if insurance will authorize Sleep apnea 00706163 G47 .30 uses oral appliance for treatment. Long-term drug therapy 686034022 Z79.899 Labs are up-to-date Acute sinusitis 27735349 J01.90 Start Augmentin therapy course and empiric fluconazol e treatment for acute sinusitis found on exam today Obesity 793087008 E66.8 discussed healthy diet, exercise, controllin g carbohydra anahi and added sugars in the diet Gastroesop hageal reflux disease without esophagitis 933974986 K21.9 Patient is stable on Nexium 20 mg daily [id number] POOJA Iraheta [facility] [place] [address] [place] [address] 02/22/2024 09:27:33 02/22/2024 10:51:20 Acute right otitis media 820172371 H66.91 Start Augmentin 875 twice daily for 7 days Preventive procedure 169 092631 Z29.9 Empiric fluconazol e course given Sore throat 538123696 J0 2.9 Influenza and COVID and strep negative on swab Health Concerns Section Related Observation LastModified by Organization Detai ls LastModified Time None Recorded Concern Status LastModified by Organization Details LastModified Time None Recorded Advance Directives Directive N: Payers Encounter Date Sequence Insurance Name Policy Number Policy Garcia Covered Member ID Garcia Member ID Guarantor Name 04/27/2023 1 R [id number] [email or web address] [id number] [email or web address] 11/04/2023 1 [employer] [id number] Lissette Guzman [id number] Lissette Guzman 02/22/2024 1 UMR [id number] [employer] [id number] [email or web address] Notes Date Note Type Note Provider Name and Address Organization Details Recorded Time 04/27/2023 text/html FatigueReported bypatient.Quality:cont inuous Severity:normal sleep patterns; normal activity;worsening; moderate Duration:constant Timing:worse Context:no problems/stress at work or home;symptoms do not improve on weekends/vacations Modifying Factors:no new stressors in life; taking vitamins Associated Symptoms:no drug/alcohol withdrawal;periods of not breathing (apnea) have been observed;recent change in weightObstructive Sleep Apnea F/UReported bypatient.Quality:witn essed apnea;snoring with apnea Onset/Timing:chronic Duration:frequent Severity:difficulty getting going in the morning Location:no enlarged tonsils; no nasal passage blockage; no throat pain; no feeling of tightness in throat; no dryness of mouth; no chest congestion Context:lack of adequate sleep;recent weight gain (more than 10 pounds) Associated Symptoms:excessive sleepiness during the day;irritability Prior Tests:thyroid panel Prior opinionPCP POOJA Iraheta Attn: Accounting,[address] [place], [address], [facility] 05/02/2023 20:21:20 11/04/2023 text/html FatigueReported bypatient.Quality:cont inuous Severity:normal sleep patterns; normal activity;worsening; moderate Duration:constant Timing:worse Context:no problems/stress at work or home;symptoms do not improve on weekends/vacations Modifying Factors:no new stressors in life; taking vitamins Associated Symptoms:no drug/alcohol withdrawal;periods of not breathing (apnea) have been observed;recent change in weightObstructive Sleep Apnea F/UReported bypatient.Quality:witn essed apnea;snoring with apnea Onset/Timing:chronic Duration:frequent Severity:difficulty getting going in the morning Location:no enlarged tonsils; no nasal passage blockage; no throat pain; no feeling of tightness in throat; no dryness of mouth; no chest congestion Context:lack of adequate sleep;recent weight gain (more than 10 pounds) Associated Symptoms:excessive sleepiness during the day;irritability Prior Tests:thyroid panel Prior opinionPCP POOJA Iraheta Attn: Accounting,[address] [place], [address], [facility] 11/27/2023 21:34:11 02/22/2024 text/html Upper Respirator y SymptomsReported bypatient.Location:hea d; throat Quality:productive cough;congested Severity:moderate Onset/Timing:sudden Context:no foreign travel; non-smoker;sick contact Modifying Factors:OTC medication Associated Symptoms:yellow sputum;fatigue;sore throat POOJA Iraheta Attn: Accounting,[address] [facility], [place], [address], [place] - [facility] 03/01/2024 00:23:16 OBGyn Episode No OBEpisode recorded.
--- OUTSIDE RECORDS SUMMARY | 2024-04-21 14:02 | XMS_ITS | Data Portability ---
Author Organization [facility], Main Office Address [address] [place] [address] Assessment No assessment recorded. Plan of Treatment Reminders Order Date Submit Date Provider Last Modified By Organization Details Last Modified Time Details Appointments None recorded. Lab insulin, serum 2022 023 [email or web address] Not available 16:55:58 TSH + free T4, serum 2022 023 [email or web address] Not available 16:55:57 T3, free, serum or plasma 2022 023 [email or web address] Not available 3 16:55:57 thyroid peroxidase (tpo) Ab, serum 2022 023 [email or web address] 4 Not available 3 16:55:57 thyroglobul in Ab, serum 2022 023 MINERVA Not available 3 09:30:53 rf (rheumatoid factor), serum 2022 023 [email or web address] 4 Not available 3 16:55:57 C-reactive protein, quantitativ e, serum or plasma 2022 023 [email or web address] 4 Not available 16:55:58 erythrocyte sedimentati on rate by westergren method 2022 023 [email or web address] 4 Not available 3 16:55:58 ccp (cyclic citrullinat ed peptide) iga+igg, serum 2022 023 [email or web address] 4 Not available 3 16:55:58 uric acid, serum or plasma 2022 023 [email or web address] 4 Not available 3 16:55:58 JEROME (antinuclea r antibodies) panel, serum 2022 023 MINERVA Not available 3 09:13:58 CBC w/ auto diff 2022 023 [email or web address] 4 Not available 3 16:55:57 CMP, serum or plasma 2022 023 MINERVA Not available 3 17:12:20 urinalysis complete, reflex culture 2022 023 [email or web address] 4 Not available 3 16:55:57 vitamin B12 + folate, serum or blood 2022 023 [email or web address] 4 Not available 3 16:55:57 lipid panel, serum 2022 023 [email or web address] 4 Not available 3 16:55:56 HbA1c (hemoglobin A1c), blood 2022 023 [email or web address] 4 Not available 3 16:55:56 Referral rheumatolog ist referral 2022 023 [email or web address] Jefry Doyle III, MD, [address], [address], [place], [address], 4 08:45:29 Procedures None recorded. Surgeries None recorded. Imaging None recorded. Medication Orders verapamil ER (SR) 180 mg tablet,exte nded release 2022 023 MINERVA [facility], [address] [place], [place], [id number], 3 16:40:11 duloxetine 30 mg capsule,del ayed release 2022 023 [email or web address] [facility], [address], [place], [id number], 3 23:34:25 Patient TargetsNo targets recorded. Patient InstructionsNo instructions recorded. 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 BARCODE Not Available 2023 12:54:22 Result Notes None recorded. Problems Name Problem SNOMED Code Status Onset Date Resolution Date Notes Provider Name and Address Organization Details Recorded Time Multiple joint pain 78218582 Active 2022 Not Available [facility] 4 16:47:51 Migraine 05133748 Active 2022 Not Available [facility] 4 16:47:51 Aphthous ulcer of mouth 615528906 Active 2022 Not Available [facility] 4 16:47:51 Acute sinusitis 99203571 Active 2022 Not Available [facility] 4 16:47:51 Upper respiratory infection 05425135 Active 2023 POOJA Iraheta [address] [place] [address], [address] , [facility] 4 12:03:34 Notes:Some problems listed i n Document: #[id number] could not be added to this patient's chart. Please review this document and add these problems to the patient's chart manually as needed. Problem Notes None recorded. Procedures Surgical History Date Name Laterality Status Provider Name and Address Organization Details Recorded Time Ablation completed Lise Kelly RN [facility] 08/17/2022 09:20:54 Cyst Removal completed Lise Kelly RN [facility] 08/17/2022 09:21:04 Lumpectomy completed Lise Kelly RN [facility]argre[facility] 08/17/2022 09:21:15 Imaging Results Imaging Date Name Status LastModified by Organiz ation Details LastModified Time 05/10/2023 home sleep study completed BAR[facility] Information not available 06/25/2023 12:54:22 Procedure Notes None recorded. Medical Equipment None Reported. Allergies Allergen ID Allergen Name Allergen Category Reaction Reaction Severity Criticality Documentation Date Start Date Code Code System Note Provider Name and Address Organization Details Recorded Time 85468 Paxil medicatio n Not available Not available Not available 08/17/2022 65952 8 RxMATTHEW Moran, [facility] [employer] [facility] 3 09:12:44 85567 Zoloft medicatio n Not available Not available Not available 08/17/2022 [id number] MATTHEW Norton, [facility] [employer] [facility] 3 09:12:51 Medications Name Sig Start Date Stop Date Status Note LastModified by Organization Details LastModified Time amoxicillin 500 mg capsule 08/14 completed Not Available Not Available Not Available azithromyci n 250 mg tablet TAKE 2 TABLETS (500 MG) BY ORAL ROUTE ONCE DAILY FOR 1 DAY THEN 1 TABLET (250 MG) BY ORAL ROUTE ONCE DAILY FOR 4 DAYS active Not Available Not Available No t Available fluconazole 150 mg tablet active Not Available Not Available Not Available benzonatate 200 mg capsule Take 1 capsule 3 times a day by oral route. active Not Available Not Available No t Available sumatriptan 100 mg tablet Take 1 tablet as needed by oral route for 30 days. active Not Available Not Available No t Available meloxicam 15 mg tablet Take by oral route for 10 days. 08/14 completed Not Available Not Available Not Available prednisone 20 mg tablet 08/14 completed Not Available Not Available Not Available verapamil ER (SR) 180 mg tablet,exte nded release Take 1 tablet every day by oral route. active Not Available Not Available No t Available topiramate 25 mg tablet 08/14 completed Not Available Not Available Not Available valacyclovi r 500 mg tablet active Not Available Not Available Not Available terbinafine HCl 250 mg tablet 08/14 completed Not Available Not Available Not Available amoxicillin 875 mg tablet Take 1 tablet every 12 hours by oral route. 03/12 completed Not Available Not Available Not Available cephalexin 500 mg capsule 08/14 completed Not Available Not Available Not Available neomycin-po lymyxin-dex ameth 3.5 mg/mL-10,00 0 unit/mL-0.1 % eye drops active Not Available Not Available Not Available triamcinolo ne acetonide 0.1 % topical ointment 08/14 completed Not Available Not Available Not Available methylpredn isolone 4 mg tablets in a dose pack 03/09 completed Not Available Not Available Not Available oxycodone 5 mg tablet 08/14 completed Not Available Not Available Not Available OraMagicRx mouthwash TAKE 15 ML EVERY 6 HOURS BY MUCOUS ROUTE NEEDED. 2022 active Not Available Not Available Not Avai lable topiramate 50 mg tablet Take 1 tablet twice a day by oral route for 90 days. active Not Available Not Available No t Available duloxetine 30 mg capsule,del ayed release Take 1 capsule every day by oral route. active Not Available Not Available No t Available duloxetine 60 mg capsule,del ayed release Take 1 capsule every day by oral route for 30 days. active Not Available Not Available No t Available Zepbound 2.5 mg/0.5 mL subcutaneou s pen injector Inject 2.5 mg every week by subcutane ous route as directed. 03/10 completed Not Available Not Available Not Available Vitals Date Recorded Body weight Body mass index (BMI) Body height Body temperature Heart rate Oxygen saturation Oxygen saturation in Arterial blood by Pulse oximetry Systolic blood pressure Diastolic blood pressure Provider Name and Address Organization Details Last Updated DateTime 3 668099. 86 g 46.6 kg/m2 165.1 cm 98.4 [degF] 66 /min 99 % 99 % 128 mm[Hg] 82 mm[Hg] Lise Kelly RN [facility] 3 16:31:29 Date Recorded Body height Body temperature Body mass index (BMI) Body weight Respiratory rate Oxygen saturation Oxygen saturation in Arterial blood by Pulse oximetry Heart rate Systolic blood pressure Diastolic blood pressure Provider Name and Address Organization Details Last Updated DateTime 3 165.1 cm 98.8 [degF] 46.8 kg/m2 804737. 46 g 16 /min 98 % 98 % 84 /min 140 mm[Hg] 82 mm[Hg] PARVEEN Gusman [facility] 15:54:38 Date Recorded Systolic blood pressure Diastolic blood pressure Provider Name and Address Organization Details Last Updated DateTime 09/25/2022 120 mm[Hg] 80 mm[Hg] POOJA Iraheta [address], [facility] [address], [place], [address], [place] [employer] [facility] 09/25/2022 16:39:18 Social History Question Answer Notes LastModified by Organizat ion Details LastModified Time Tobacco Smoking Status Former Smoker Lise Kelly RN null, [place] [employer] [facility] 08/14/2022 16:29:02 What Is Your Level Of Alcohol Consumption? Occasional [email or web address] Information not available 08/14/2022 What Is Your Level Of Caffeine Consumption? Moderate [email or web address] Information not available 08/14/2022 In The 14 Days Before Symptom Onset, Have You Had Close Contact With A Laboratory-confir med COVID-19 While That Case Was Ill? No [email or web address] Information not available 08/14/2022 In The 14 Days Before Symptom Onset, Have You Had Close Contact With A Person Who Is Under Investigation For COVID-19 While That Person Was Ill? No [email or web address] Information not available 08/14/2022 What Type Of Diet Are You Following? REGULAR [email or web address] Information not available 08/14/2022 Have There Been Any Changes To Your Family Or Social Situation? No Information no t available 08/14/2022 What Is The Fluoride Status Of Your Home? Unknown [email or web address] Information not available 08/14/2022 When Did You Quit Smoking? 6-10yearssince lastcigarette [email or web address] Information not available 08/14/2022 Do You Use Insect Repellent Routinely? No [email or web address] Information not available 08/14/2022 Have You Ever Been Counseled For Unhealthy Alcohol Use? No [email or web address] Information not available 08/14/2022 Do You Use Your Seat Belt Or Car Seat Routinely? Yes [email or web address] Information not available 08/14/2022 Do You Have Smoke And Carbon Monoxide Detectors In Your Home? Yes [email or web address] Information not available 08/14/2022 At What Age Did You Start Smoking Tobacco? 15 [email or web address] Information not available 08/14/2022 Are You Passively Exposed To Smoke? No [email or web address] Information no t available 08/14/2022 Are There Any Smokers In Your House? No [email or web address] Information not available 08/14/2022 Do You Feel Stressed (tense, Restless, Nervous, Or Anxious, Or Unable To Sleep At Night)? [id number] Information not available 08/14/2022 Do You Use Any Illicit Or Recreational Drugs? No Information not available 08/14/2022 Do You Use Sunscreen Routinely? Yes [email or web address] Information not available 08/14/2022 Have You Recently Traveled Abroad? No [email or web address] Information not available 08/14/2022 Do You Have Any Dietary Restrictions? No [email or web address] Information not available 08/14/2022 Do You Or Have You Ever Used Any Other Forms Of Tobacco Or Nicotine? No [email or web address] Information not available 08/14/2022 Sex: Unknown Functional Status Question Answer Note LastModified by Organizat ion Details LastModified Time What is your exercise level? Occasional [email or web address] Information not available 08/14/2022 Mental Status None recorded. Family History Relationship Description Onset Age of this Age Resolved Age Notes LastModified by Organization Details LastModified Time Mother Rheumatoid arthritis [email or web address] Not available 09:13:44 Father Blood coagulation disorder [email or web address] Not available 09:14:01 Maternal Grandmother History of Hodgkin lymphoma [email or web address] Not available 09:14:30 Maternal Grandfather Myocardial infarction [email or web address] Not available 09:14:48 Paternal Grandmother Alzheimer's disease [email or web address] Not available 09:16:21 Brother Rheumatoid arthritis [email or web address] Not available 09:16:31 Brother Type 2 diabetes mellitus [email or web address] Not available 09:20:25 Medical History No medical history recorded. Gynecological History Statement/Question Response Current Control Method Ablation Obstetrics History GPAL:G 0 P 0 0 0 0 Past Encounters Encounter ID Performer Location Encounter Start Date Encounter Closed Date Diagnosis/Indication Diagnosis SNOMED-CT Code Diagnosis ICD10 Code Diagnosis Note [id number] POOJA Iraheta [facility] [place] [address] [place] [address] 08/14/2022 16:09:21 08/14/2022 17:21:36 Adult health examination 752842150 Z00.01 new pt wellness completed Cholesterol screening 27 1523842 Z13.220 fasting lipids ordered Diabetes m rickyitus screening 381210848 Z13.1 screening diabetes ordered Long-term drug therapy 441147213 Z79.899 routine cbc, cmp, ua and b12 folate ordered Multiple joint pain 3567 8005 M25.50 screening autoimmune and joint pain panel Thyroid di sorder screening 827783051 Z13.29 full TFT panel w/abs Body mass index 40+ - severely obese 714638343 Z68.42 screening insulin [id number] POOJA Iraheta [facility] [place] [address] [place] [address] 09/25/2022 15:41:28 09/25/2022 16:46:13 Multiple joint pain 06114004 M25.50 labs have been negative range in RA, CCP and JEROME but ESR and CRP are mildly elevated. pt is quite symptomati c. will boost to cymbalta 90mg total daily to see if this helps with her pain. Also interested in referral to Rheumatolo gy to evaluate for any possibilit y of sub-clinic al autoimmune case. Migraine 34704015 G43.90 9 refill on verapamil ER 180mg daily. Health Concerns Section Related Observation LastModified by Organization Detai ls LastModified Time None Recorded Concern Status LastModified by Organization Details LastModified Time None Recorded Advance Directives Directive None Recorded Payers Encounter Date Sequence Insurance Name Policy Number Policy Garcia Covered Member ID Garcia Member ID Guarantor Name 08/14/2022 1 [employer] [id number] Lissette Guzman [id number] Lissette Guzman 09/25/2022 1 [employer] [id number] Lissette Zhuks [id number] Lissette Guzman Notes Date Note Type Note Provider Name and Address Organization Details Recorded Time 023 text/ht ml Generic HPI TemplateReported bypatient.Notes:multiple joint pain never really explored or evaluated by last PCP.HeadacheReported bypatient.Notes:stable on medicationsHypertensionReported bypatient.Notes:stable on verapamil new ptwellness [facility]OO[facility] Iraheta [address] [facility] [address], [place], [address], [place] 08/28/2022 20:58:49 023 text/ht ml Generic HPI TemplateReported bypatient.Notes:Pt is here to f/u on her labs. They are in her chart. POOJA Iarheta [address] [facility], [facility] [address], [place], [address], [place] 09/25/2022 23:40:45 OBGyn Episode No OBEpisode recorded.
--- OUTSIDE RECORDS SUMMARY | 2024-04-21 14:02 | XMS_ITS | Data Portability ---
Author Organization [employer] [facility] in Office Address [address] [place] [address] Assessment Encounter Date Assessment Date Assessment LastModified by Organization Details LastModified Time 03/16/2024 03/16/2024 I spent 25 minutes of tkdm-bv-kbyn counselling and care coordination time with the patient. This includes reviewing medical records (medical, surgical, family and social history); updating medication and allergy information in the electronic health record; and ordering labs, medications, and education materials to continue patient care. The patient is experiencing significant symptoms related to hormonal changes that impact their quality of life and ability to function professionally and/or personally. We reviewed lifestyle modifications, integrative therapies, hormonal options as well as other medications used to treat common menopausal symptoms. Pt was informed that, as with any drug, there are some potential risks associated with HRT. We discussed that some types of HRT may increase the risk of heart attack, stroke, and blood clots. Patient is counseled on concerning signs and symptoms and instructed to immediately seek care if these develop. We discussed potential health risks that may be associated with HRT including risks related to breast cancer, uterine cancer, gallbladder disease, dementia and others. Many of these concerns are related to older types of hormones that are no longer recommended today and some of these concerns differ depending on the component of hormones (estrogen vs progesterone) and the mode of delivery. After review of the potential benefits of HRT, the alternatives and the risks of therapy this patient prefers a trial of HRT. Based on this shared decision making HRT therapy will be offered. Information sent for patient to review and make a decision. [email or web address] Not available 03/16/2024 19:57:07 Plan of Treatment Reminders Order Date Submit Date Provider Last Modified By Organization Details Last Modified Time Details Appointments None record ed. Lab None record ed. Referral None record ed. Procedures None record ed. Surgeries None record ed. Imaging None record ed. Medication Orders None record ed. Patient TargetsNo targets recorded. Patient Instructions Encounter Date Encounter Id Patient Instructions Last Modified By Organization Details Last Modified Time 03/16/2024 [id number] Any requested follow-up visits are listed below in the Plan of Care section. Go directly to the [facility] specialist at [email or web address] to book a time. Not available 03/16/2024 18:54:05 It was a pleasur e to meet with you today! We discussed your health concerns related to perimenopause and menopause. It was a pleasure to meet you and begin to collaborate on your care! Looking forward to seeing you again soon - and please do not hesitate to reach out with any questions. We focused on these items today: 1 . MEDICATION Please see changes to your medication plan below RESOURCES Here is some more information about what we discussed: Today we reviewed options for treating common symptoms of menopause. These options include hormonal medications, non hormonal medications, integrative therapies and lifestyle modifications. Menopause symptoms vary from woman to woman. Some women get no symptoms, but others have many. Intensity and duration also vary and can last on average 5-10 years. HRT may help with many menopausal symptoms. It is FDA approved for the treatment of hot flashes, vaginal symptoms, osteoporosis, and for those in early or premature menopause. HRT is associated with relief of symptoms and improvement in bone health. When started close to the age of menopause, HRT reduces cardiovascular risk and has potential benefits for cognitive health. Here are the latest recommendations from the Menopause Society: https://menopause.o rg/patient-educatio n/menopause-topics/ hormone-therapy Hormone therapy most often involves the combination of estrogen and progestogen. As with any drug there are some potential risks associated with hormone therapy. There are concerns of associated health risks with HRT including risks related to breast cancer, uterine cancer, gallbladder disease, and dementia. Many of these concerns are related to older types of hormones that are no longer recommended today and some of these concerns differ depending on the component of hormones (i.e., estrogen vs progestogen) and the mode of delivery. Some studies have suggested that some types of HRT may increase the risk of heart attack, stroke, and blood clots. If you develop chest pain, difficulty breathing, or symptoms suggestive of a stroke please seek care immediately. Today we reviewed your personal history including specific risks and benefits of hormone therapy for you. Based on this shared decision making, we recommend HRT to you as a reasonable and helpful therapy. If you have additional questions related to health risks associated with HRT, please discuss with your clinician. Please know that HRT requires fine-tuning and an individualized approach. We l l plan to adjust your therapy if needed to address your symptoms. We will meet in 4-6 weeks to check in about your new regimen. Please reach out if you need to meet sooner. Estradiol transdermal patch (Vivelle Dot): -Helpful for hot flashes, night sweats, and symptoms of perimenopause/menop ause. -Twice weekly transdermal patch. -Get it from your pharmacy. Application notes: -Peel off the backing from the patch and apply to a clean, dry area of your body, usually lower abdomen or upper buttock. Press the patch firmly in place for 10 seconds. Do not apply the patch on your breast or on oily, broken, or irritated skin. Replace your patch twice a week, and be as consistent as possible with the days you choose to change it. If the patch is not sticking or it causes irritation, try dusting your skin with a small amount of cornstarch before applying. Side effects: -While the HRT is safe for most users, some may experience side effects, including: nausea, breast tenderness, bloating, spotting, and mild mood changes. Estrogen in some forms increases the risk of a blood clot in the leg (deep vein thrombosis) or lung (pulmonary embolism). While blood clots are rare, contact your health care provider or go to the emergency room if you develop shortness of breath, coughing or chest pain, leg or calf pain, or redness or swelling. For more information regarding common questions about the estradiol patch, watch this short video from our Chief Clinical Officer, Dr. Carl. You will need to copy the following link into your browser to access the video: [email or web address] Of course, if you have further questions after watching, please reach out and I will be happy to support you. Oral micronized progesterone (Prometrium) C ontinuous: -We prescribe progesterone to protect women with a uterus while taking estrogen. It may be prescribed for some individuals to help with sleep. -Remember to take this medication orally daily approximately two hours before bed, because it may make you drowsy. That is normal and common, and could bring the added benefit of better sleep. -Get it from your pharmacy. -Contraindications to this formulation: Peanut allergies as in peanut oil. -Concerning symptoms that would require immediate visit with PCP or urgent care: Severe mood changes. -Non-concerning side effects that are likely to resolve: cramping, bloating and mild moodiness. These are likely to ease within three months. Oral micronized progesterone (Prometrium) C ontinuous: -We prescribe progesterone to protect your uterus while you are taking estrogen. -Take pill orally daily. -Remember to take this medication before bed, because it may make you drowsy. That is normal and common, and could bring the added benefit of better sleep. -Get it from your pharmacy. Contraindications to this formulation: Peanut allergies as in peanut oil. Concerning symptoms that would require immediate visit with PCP or urgent care: Severe mood changes. Non-concerning side effects that are likely to resolve: cramping, bloating and mild moodiness. These are likely to ease within three months. --------- Your Care Plan --------- Together, we decided that you would: - Consider starting hormone therapy with estrogen and progesterone. The estrogen would be in the form of a patch that you would change twice a week. The recommended placement is on the lower abdomen or upper buttocks. The patch can get wet, but it is not recommended to submerge it for more than 30 minutes without covering it. The progesterone would be in pill form, which you should take about an hour to an hour and a half before you get ready to go to sleep. This dual therapy is intended to keep the risk of breast cancer, thyroid issues, clot issues, and heart issues at bay. - Monitor for any signs of blood clots, especially chest pain, shortness of breath, calf pain, tenderness, redness, or warmth in the calf area. If you notice any of these symptoms, seek medical attention immediately. - Improve your physical activity. Regular exercise can help manage some of the symptoms of menopause and improve your overall health. - Get lab draws every six months, or every three months if you feel something is off. These tests will help monitor your hormone levels and check for any potential issues. - Set up your patient portal. This will allow you to message me directly with any questions or concerns you may have. - Consider trying supplements to help manage your symptoms. If you feel that you have exhausted all other options, you can then consider trying hormone therapy. - If you decide to proceed with hormone therapy, you can either send me a message or schedule another appointment to discuss further. Please carefully review the care plan we have decided upon, specific information regarding your medication, and important details about your treatment detailed below. Thank you for trusting us with your care! [email or web address] Not available 03/16/2024 19:59:11 Reason for Referral None Reported. Problems Name Problem SNOMED Code Status Onset Date Resolution Date Notes Provider Name and Address Organization Details Recorded Time Fatigue 36965053 [place] [address] [address] [facility] [address], [place] 18:54:14 Menopausal symptom 36994686 Active 2024 [place] [address]Elena Haley [facility] [address], [place] 18:54:14 Obesity 126715549 Active 2024 [place] [address] [address] [facility] [address], [place] 18:54:25 Anxiety 49080026 Active 2024 [place] [address] [address], [place] 18:54:36 Depressive disorder 30365763 Active 2024 [place] [address] [address], [place] 18:54:50 Hypertensive disorder 34692139 Active 2024 [place] [address] [place], [address], [facility] 18:55:01 Blood coagulation disorder 10460448 Active 2024 [place] [address] [place], [address], [facility] 18:55:34 Problem Notes None recorded. Medical Equipment None Reported. Allergies Allergen ID Allergen Name Allergen Category Reaction Reaction Severity Criticality Documentation Date Start Date Code Code System Note Provider Name and Address Organization Details Recorded Time 164639 Paxil medicatio n Not available Not available Not available 03/16/2024 02709 8 RxNorm Not Available Not Available Not Available 352692 Zoloft medicatio n Not available Not available Not available 03/16/2024 57686 RxNorm Not Available Not Available Not Available 739576 paroxetin e Not available rash Not available high 03/16/20242020 28826 RxNorm Not Available Not Available Not Available 182494 sertralin e medicatio n rash Not available high 03/16/20242020 08416 RxNorm Not Available Not Available Not Available Medications Name Sig Start Date Stop Date Status Note LastModified by Organization Details LastModified Time fluconazole 150 mg tablet TAKE 1 TABLET BY MOUTH FOR 1 DOSE. MAY REPEAT LATER DATE IF NEEDED. active Not Available Not Available No t Available valacyclovir 1 gram tablet active Not Available Not Available Not Available verapamil ER (SR) 180 mg tablet,extende d release active Not Available Not Available No t Available amoxicillin 875 mg-potassium clavulanate 125 mg tablet TAKE 1 TABLET BY MOUTH EVERY 12 HOURS active Not Available Not Available No t Available topiramate 50 mg tablet active Not Available Not Available No t Available duloxetine 30 mg capsule,delaye d release active Not Available Not Available No t Available duloxetine 60 mg capsule,delaye d release active Not Available Not Available No t Available aspirin active Not Available Not Avail able Not Available folic acid active Not Available Not Av ailable Not Available B12 active Not Available Not Availa ble Not Available Vitals Date Recorded Body height Body mass index (BMI) Body weight Provider Name and Address Organization Details Last Updated DateTime 03/16/2024 172.72 cm 39.2 kg/m2 869388.[place] [address] [place], [address], [facility] 03/16/2024 19:56:28 Social History None recorded. Functional Status None recorded. Mental Status None recorded. Family History Relationship Description Onset Age of this Age Resolved Age Notes LastModified by Organization Details LastModified Time Paternal Grandmother Heart disease [email or web address] Not available 2024 18:53:16 Maternal Grandmother Heart disease [email or web address] Not available 2024 18:53:16 Maternal Grandfather Heart disease [email or web address] Not available 2024 18:53:16 Paternal Grandfather Heart disease [email or web address] Not available 2024 18:53:16 Medical History No medical history recorded. Gynecological History Statement/Question Response Date of Last Mammogram Date of Last Colonoscopy Date of LMP 03/09/2024 Date of Last Pap Smear Current Control Method None,Other Approximate Obstetrics History GPAL:G 0 P 0 0 0 0 Past Encounters Encounter ID Performer Location Encounter Start Date Encounter Closed Date Diagnosis/Indication Diagnosis SNOMED-CT Code Diagnosis ICD10 Code Diagnosis Note [id number] Paulette Wick MD Main Office [address] [place] [address] 03/16/2024 18:02:28 03/17/2024 04:15:34 Menopausal symptom 68730276 N95.1 - Discussed the patient's menopausal symptoms, including night sweats, hot flashes, and brain fog.- Recommende d transderma l estrogen patch (lowest dose) to be changed twice a week, with placement on the lower abdomen or upper buttocks. Advised that the patch can get wet but should not be submerged for more than 30 minutes without covering.- Educated on the benefits of estrogen, including mood improvemen t, alleviatio n of vaginal issues, reduction of night sweats and hot flashes, improvemen t of brain fog, lowering of cholestero l, and enhancemen t of hair and skin collagen.- Recommende d oral progestero ne to be taken about an hour to an hour and a half before bedtime to aid sleep and prevent morning grogginess .- Discussed the risks associated with hormone therapy, including increased risk of blood clots, breast cancer, and cardiovasc ular issues, especially given the patient's history of a splenic blood clot.- Advised regular monitoring with lab draws every 6 months, or every 3 months if the patient feels something is off.- Educated on the importance of monitoring for symptoms of blood clots, such as chest pain, shortness of breath, calf pain, tenderness , redness, and warmth.- Provided informatio n on hormone therapy and supplement s for perimenopa use and menopause. - Patient advised to set up a patient portal for direct communicat ion and to schedule follow-up appointmen ts as needed. Fatigue 52080562 R53.83 - Discussed the potential benefit of progestero ne in improving sleep quality, which may help alleviate fatigue.- Educated on the importance of physical activity in managing fatigue and overall health.- Advised to monitor for any changes in energy levels and to report any persistent or worsening fatigue. As per overall signs/symp toms, assessing thyroid function. Obesity 449458899 E66.9 - Discussed the importance of physical activity in managing weight and overall health.- Educated on the potential benefits of hormone therapy in improving energy levels and mood, which may support increased physical activity.- Advised to monitor weight and report any significan t changes. Health Concerns Section Related Observation LastModified by Organization Detai ls LastModified Time None Recorded Concern Status LastModified by Organization Details LastModified Time None Recorded Advance Directives Directive None Recorded Payers Encounter Date Sequence Insurance Name Policy Number Policy Garcia Covered Member ID Garcia Member ID Guarantor Name 03/16/2024 1 [facility] [id number] Lissette Guzman [id number] Lissette Guzman Notes Date Note Type Note Provider Name and Address Organization Details Recorded Time 03/16/2024 text/html Patient is a 43 year old female presenting with concerns about symptoms of perimenopause and menopause, and a history of anxiety, depression, high blood pressure, and a blood clot in the spleen. Perimenopausal and Menopausal Symptoms:- Patient reports experiencing symptoms that she believes are related to perimenopause and menopause, but did not specify the nature or duration of these symptoms.- Last menstrual cycle was on 01/06/2024. Anxiety and Depression:- Patient has a past medical history of anxiety and depression.- Currently taking duloxetine and Topiramate 50mg for these conditions. High Blood Pressure:- Patient has a history of high blood pressure.- Currently managed with verapamil. Blood Clot History:- Patient had a blood clot in her spleen in the past, but did not specify when this occurred or how it was treated.- Currently taking aspirin, presumably as a blood thinner. Family History:- Paternal grandfather, paternal grandmother, and both maternal grandparents had heart disease.- No known family history of breast cancer, thyroid issues, or clotting issues. Medications and Allergies:- Current medications include B12, verapamil, duloxetine, aspirin, valacyclovir, folic acid, and Topiramate 50mg.- Allergic to Paxilor, paroxetine, and Zoloft. Smoking and Alcohol Use:- Former smoker who quit in 2011, previously smoked about 2 packs per day.- Consumes no more than 2 alcoholic beverages per day. Recent Screenings:- Last Pap smear was in 2022.- Last colonoscopy was in 2018.- Last mammogram was in 2021, with another one scheduled in the near future. PMHx:- Anxiety- Depression- High blood pressure- Blood clot in spleen FMHx:- Heart disease (Paternal grandfather)- Heart disease (Paternal grandmother)- Heart disease (Maternal grandfather)- Heart disease (Maternal grandmother) Current Meds:- B12- Verapamil- Duloxetine- Aspirin- Folic acid- Topiramate 50mg Allergies:- Paxilor- Paroxetine- Zoloft Social Hx:- Tobacco Use: Former smoker, quit in 2011- Alcohol Use: No more than 2 alcoholic beverages per day Virtual Visit AttestationModality : VideoProvider Location: Home Patient Location: Home Patient State: {{AL AK AZ AR CA CO CT DE DC FL GA HI ID IL* IN [place] EDWARD MARIEE MD ME IA MN M S MO MT NE NV NH NJ NM NY NC ND OH OK OR PA RI SC SD TN T X UT VT VA [place]}} [place] [address] [place], [address], [facility] 2024 16:43:09 OBGyn Episode No OBEpisode recorded.
--- OUTSIDE RECORDS SUMMARY | 2024-04-21 14:02 | XMS_ITS | Clinical Summary ---
Author Organization [facility] Building A Address [address] [place] [address] Care Team Providers Care Shop Assistant Name Role Phone Jd Alaniz MD Primary Care Provider [phone] Allergies Active Allergy Reactions Criticality Noted Date [...] Take 81 mg by mouth daily Active msvfudgb-clcd-ZB -calcium-mins 18 mg iron-400 mcg-450 mg Ca [...] Abnormal mammogram 11/08/2015 Discharge from nipple 07/26/2015 Medical History Medical History Date Comments Headache, tension-type Migraine Hyperlipemia Family History Medical History Relation Name Comments Hypertension Father Hypertension Mother Relation Name Status Comments Father Mother Social History Tobacco Use Types Packs/Day Years Used Date Smoking Tobacco: Former Alcohol Use Standard Drinks/Week Comments Not Currently 0 (1 standard drink = 0.6 oz pur e alcohol) Personal Safety Answer Date Recorded Getting School Help Needed Not on file 04/28 Comments Unknown Sex and Gender Information Value Date Recorded Sex Assigned at Not on file 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 Gender Identity Not on file Sexual Orientation Not on file Obstetrics History Last Filed Vital Signs Vital Sign Reading Time Taken Comments Blood Pressure 126/84 01/19/2022 10:18 AM TOASTER ELEMENT REPAIRER Pulse 71 01/19/2022 10:18 AM TOASTER ELEMENT REPAIRER Temperature 36.9 C (98.4 F) 04/25/2019 1:05 PM TOASTER ELEMENT REPAIRER Respiratory Rate 16 04/25/2019 3:31 PM TOASTER ELEMENT REPAIRER Oxygen Saturation 100% 01/19/2022 10: 18 AM TOASTER ELEMENT REPAIRER Inhaled Oxygen Concentration - - Weight 129.4 kg (285 lb 3.2 oz) 022 10:18 AM TOASTER ELEMENT REPAIRER Height 165.1 cm (5' 5 ) 01/19/2022 10:1 8 AM TOASTER ELEMENT REPAIRER Body Mass Index 47.46 01/19/2022 10:18 AM TOASTER ELEMENT REPAIRER Plan of Treatment Health Maintenance Due Date Last Done Comments Breast Cancer Screening-Mammogram 1980 Cervical Cancer Screening 1980 Depression Screening 1980 Hepatitis C Screening 1980 Varicella Vaccines (1 of 2 - 13+ 2-dose series) 1993 DTaP/Tdap/Td Vaccine (5 - Tdap) 08/01/1994 07/31/1994, 06/07/1985, 10/02/1981, Additional history exists Hepatitis B Screening 1998 Regular Well Visit/Exam 18-64 1998 Influenza Vaccine (#1) 2023 HPV Vaccines Aged Out No longer eligi ble based on patient's age to complete this topic Pneumococcal vaccine <65 Aged Out No longer eligible based on patient's age to complete this topic Insurance [facility] Member Subscriber Plan / Payer (Ef fective 2018-Present) Name:Lissette Guzman Cara Relation to Subscriber:Self Name:Lissette Guzman Cara Payer ID:[id number] (NAIC) Type:Taplet Address: [address] [facility] [employer] [employer] [facility] HMO/PPO Address: [address] [address] [place] [address] Care Teams Shop Assistant Relationship Specialty Start Date End Date Jd Alaniz MD PCP - General 05/25/18
--- OUTSIDE RECORDS SUMMARY | 2024-04-21 14:02 | XMS_ITS | Encounter Summary ---
Author Organization [facility] Address [address] [place] [address] Care Team Providers Care Surveyor Mine Name Role Phone Jd Alaniz MD Primary Care Provider [phone] Encounter Details Date Type Department Care Team (Latest Contact Info) Description 02/13/[address] [facility] Bella, [place] [address] [facility] [place] [address] [place] [address] Other Malaise and Fatigue (Primary Dx) Social History Tobacco Use Types Packs/Day Years Used Date Smoking Tobacco: Never Assessed Comments Unknown Sex and Gender Information Value Date Recorded Sex Assigned at Not on file Legal Sex Female 5:09 AM TOOL AND DIE ASSEMBLER Gender Identity Not on file Sexual Orientation Not on file documented as of this encounter Plan of Treatment Upcoming Encounters Date Type Department Care Team (Late st Contact Info) Description 05/01/2024 3:30 PM TOOL AND DIE ASSEMBLER Office Visit [facility] Oncology and Hematology - [place] [address] [facility] [address] [place] [address] Gavin Jimenez MD [address] [facility] [address] [place] [address] documented as of this encounter Procedures Procedure Name Priority Date/Time Associated Diagnosis Comments IRON PANEL Routine 02/13/2006 11:58 AM TOOL AND DIE ASSEMBLER CBC WITH DIFFERENTIAL Routine 02/13/2006 11:58 AM TOOL AND DIE ASSEMBLER CBC WITH DIFFERENTIAL Routine 02/13/2006 11:58 AM TOOL AND DIE ASSEMBLER TSH Routine 02/13/2006 11:58 AM TOOL AND DIE ASSEMBLER LIPID PANEL Routine 02/13/2006 11:58 AM TOOL AND DIE ASSEMBLER COMPREHENSIVE METABOLIC PANEL Routine 02/13/2006 11:58 AM TOOL AND DIE ASSEMBLER documented in this encounter Results * CBC WITH DIFFERENTIAL (02/13/2006 11:58 AM TOOL AND DIE ASSEMBLER) NEUTROPHILS 63 45 - 70 % INTERFAC E SYSTEM LYMPHOCYTES 28 16 - 45 % INTERFAC E SYSTEM MONOCYTES 6 3 - 13 % INTERFACE SYSTEM EOSINOPHILS 2 0 - 7 % INTERFAC E SYSTEM BASOPHILS 1 0 - 2 % INTERFACE SYSTEM NEUTROPHIL ABSOLUTE 4.54 1.90 - 7.00 K/uL INTERFACE SYSTEM LYMPHOCYTE ABSOLUTE 2.03 0.70 - 4.50 K/uL INTERFACE SYSTEM MONOCYTE ABSOLUTE 0.46 0.10 - 1.30 K/uL INTERFACE SYSTEM EOSINOPHIL ABSOLUTE 0.15 0.00 - 0.70 K/uL INTERFACE SYSTEM BASOPHILS ABSOLUTE 0.04 0.00 - 0.20 K/uL INTERFACE SYSTEM 02/13/2006 11:5 8 AM TOOL AND DIE ASSEMBLER us Zachery Bella MD HEMATOLOGY ORDERABLES F inal Result INTERFACE SYSTEM Refer to clinic/hospital department * CBC WITH DIFFERENTIAL (02/13/2006 11:58 AM TOOL AND DIE ASSEMBLER) WBC 7.2 4.0 - 9.8 K/uL INTERFACE SYSTEM RBC 4.27 3.90 - 4.90 M/uL INTERFACE SYSTEM HEMOGLOBIN 13.8 11.8 - 14.8 g/dL INTERFACE SYSTEM HEMATOCRIT 40.9 35.5 - 44.0 % INTERFACE SYSTEM MCV 95.8 82.0 - 99.0 fL INTERFACE SYSTEM MCH 32.3 27.2 - 32.6 pg INTERFACE SYSTEM MCHC 33.7 31.5 - 35.5 % INTERFACE SYSTEM RDW 12.4 11.5 - 14.5 % INTERFACE SYSTEM RDW-STDEV 42.7 37.1 - 48.7 fL INTERFACE SYSTEM PLATELETS 213 140 - 350 K/uL INTERFACE SYSTEM MPV 9.9 9.3 - 12.4 fL INTERFACE SYSTEM 02/13/2006 11:5 8 AM TOOL AND DIE ASSEMBLER us Zachery Bella MD HEMATOLOGY ORDERABLES F inal Result Performing Organization Address City/[facility] Co de Phone Number INTERFACE SYSTEM Refer to clinic/hospital department * TSH (02/13/2006 11:58 AM TOOL AND DIE ASSEMBLER) TSH 0.73 0.27 - 4.20 uU/mL INTERFACE SYSTEM 02/13/2006 11:5 8 AM TOOL AND DIE ASSEMBLER us Zachery Bella MD CHEMISTRY ORDERABLES Fi nal Result Performing Organization Address [facility] de Phone Number INTERFACE SYSTEM Refer to clinic/hospital department * IRON PANEL (02/13/2006 11:58 AM TOOL AND DIE ASSEMBLER) IRON 154 37 - 160 ug/dL INTERFACE SYSTEM TRANSFERRIN 329 200 - 360 mg/dL INTERFACE SYSTEM IRON % SATURATION 37 15 - 50 % INTERFACE SYSTEM TIBC 418 250 - 450 ug/dL INTERFACE SYSTEM 02/13/2006 11:5 8 AM TOOL AND DIE ASSEMBLER us Zachery Bella MD CHEMISTRY ORDERABLES Fi nal Result Performing Organization Address [facility] de Phone Number INTERFACE SYSTEM Refer to clinic/hospital department * (ABNORMAL) LIPID PANEL (02/13/2006 11:58 AM TOOL AND DIE ASSEMBLER) CHOLESTEROL 236(H) 100 - 199 mg/dL INTERFACE SYSTEM TRIGLYCERIDE 166(H) 10 - 149 mg/dL INTERFACE SYSTEM HDL 86(H) 40 - 59 mg/dL INTERFACE SYSTEM CHOL/HDL RATIO 2.7 2.0 - 5.0 INTER FACE SYSTEM LDL CALCULATED 117(H) <=99 mg/dL INTERFACE SYSTEM LIPID PANEL COMMENT See Below INTERFACE SYSTEM Comment: The adult ATP and pediatric NCEP classifications for lipids are available on the [facility] Intranet at: [email or web address] Select: Lab Policies and Procedures Select: Reference Ranges - Lipids 02/13/2006 11:5 8 AM TOOL AND DIE ASSEMBLER Zachery Bella MD CHEMISTRY ORDERABLES Fi nal Result Performing Organization Address City/[facility] Co de Phone Number INTERFACE SYSTEM Refer to clinic/hospital department * COMPREHENSIVE METABOLIC PANEL (02/13/2006 11:58 AM TOOL AND DIE ASSEMBLER) GLUCOSE 85 65 - 99 mg/dL INTERFACE SYSTEM CREATININE 0.81 0.51 - 0.95 mg/dL INTERFACE SYSTEM Comment:Note: Effective 12/30 New Methodology and Reference Ranges CALCIUM 9.2 8.4 - 10.2 mg/dL INTERFACE SYSTEM ALKALINE PHOSPHATASE 58 35 - 104 U/L INTERFACE SYSTEM AST 14 12 - 32 U/L INTERFACE SYSTEM ALT 18 0 - 31 U/L INTERFACE SYSTEM TOTAL PROTEIN 7.3 6.3 - 8.6 g/dL INTERFACE SYSTEM ALBUMIN 4.3 3.4 - 4.8 g/dL INTERFACE SYSTEM BILIRUBIN TOTAL 0.3 0.2 - 1.0 mg/dL INTERFACE SYSTEM BUN 16 6 - 20 mg/dL INTERFACE SYSTEM SODIUM 140 135 - 145 mmol/L INTERFACE SYSTEM POTASSIUM 3.7 3.5 - 4.9 mmol/L INTERFACE SYSTEM CHLORIDE 105 96 - 108 mmol/L INTERFACE SYSTEM CO2 26 22 - 30 mmol/L INTERFACE SYSTEM GFR, >60 >=60 mL/min/1.7 sq meter INTERFACE SYSTEM GFR >60 >=60 mL/min/1.7 sq meter INTERFACE SYSTEM Comment: Estimated GFR rate interpretative information for both Americans and non- Americans is available on the [facility] Intranet at: [email or web address] Select: Lab Policies and Procedures Select: Reference Ranges - GFR 02/13/2006 11:5 8 AM TOOL AND DIE ASSEMBLER Zachery Bella MD CHEMISTRY ORDERABLES Fi nal Result Performing Organization Address [facility] Co de Phone Number INTERFACE SYSTEM Refer to clinic/hospital department documented in this encounter Visit Diagnoses Diagnosis Other malaise and fatigue- Primary documented in this encounter Care Teams Surveyor Mine Relationship Specialty Start Date End Date Jd Alaniz MD [address] [place] [address] PCP - General Internal Medicine 03/27/21 documented as of this encounter
--- OUTSIDE RECORDS SUMMARY | 2024-04-21 14:03 | XMS_ITS | Clinical Summary ---
Author Organization [facility] Address [address] [place] [address] Care Team Providers Care Woodworking Machine Offbearer Name Role Phone Kelsey Sapp Primary Care Provider [phone] Social History Tobacco Use Types Packs/Day Years Used Date Smoking Tobacco: Never Assessed Comments Unknown Sex and Gender Information Value Date Recorded Sex Assigned at Not on file Legal Sex Female 5:50 PM ANIMAL SURGEON Gender Identity Not on file Sexual Orientation Not on file Plan of Treatment Health Maintenance Due Date Last Done Comments Cervical Cancer Screening Pap Smear (Age 30 to 64) Every 3 Years 1980 Annual Physical 1983 Hepatitis C 1998 Hepatitis B Vaccines (1 of 3 - 19+ 3-dose series) 1999 Cervical Cancer Screening Pap with HPV Testing (Age 30 to 64) Every 5 Years 2010 Cervical Cancer Screening with HPV 2010 Mammogram Screening 10/22/2022 10/22/2020 COVID-19 Vaccine ( season) 2023 01/30/2021, 05/02/2020, 04/04/2020 Influenza Adult (#1) 2023 12/26/2019 DTaP, Tdap and Td Vaccines (6 - Td or Tdap) 09/30/2030 09/30/2020, 07/31/1994, 06/07/1985, Additional history exists HPV Vaccines Aged Out No longer eligi ble based on patient's age to complete this topic Meningococcal B Vaccine Aged Out No l onger eligible based on patient's age to complete this topic Meningococcal Vaccine Aged Out No peter suman eligible based on patient's age to complete this topic Pneumococcal Vaccine: Pediatrics (0 to 5 Years) and At-Risk Patients (6 to 64 Years) Aged Out No longer eligible based on patient's age to complete this topic RSV Immunizations Under 20 Months Aged Out No longer eligible based on patient's age to complete this topic Insurance [facility] Care Teams Woodworking Machine Offbearer Relationship Specialty Start Date End Date Kelsey Sapp PA [address] [place] [phone] PCP - General PHYSICIAN FINANCE PROFESSIONAL 01/05/24
[2024-04-21 14:08] LABS: Basophils Absolute Auto 0.1 K/mm3 (0.0-0.1); Basophils Percent Auto 1.3 % (0.2-1.2); Eosinophils Absolute Auto 0.3 K/mm3 (0-0.3); Hematocrit 40.5 % (37.0-47.0); Hemoglobin 12.7 g/dL (12.0-15.0); Immature Granulocyte Absolute 0.02 K/mm3 (0.00-0.031); Immature Granulocyte Percent A 0.3 % (0-0.5); Lymphocytes Absolute Auto 2.43 K/mm3 (0.9-3.2); Lymphocytes Percent Auto 32.6 % (18.3-44.2); Mean Corpuscular HGB Conc 31.4 g/dl (32-36); Mean Corpuscular Hemoglobin 29.8 pg (26-34); Mean Corpuscular Volume 95.1 fl (80-100); Mean Platelet Volume 9.1 fl (7.4-10.4); Monocytes Absolute Auto 0.5 K/mm3 (0.1-0.6); Monocytes Percent Auto 6.8 % (2.6-8.5); Neutrophils Absolute Auto 4.1 K/mm3 (1.3-6.7); Platelet Count Result 222 k/mm3 (150-375); Red Blood Count 4.26 M/mm3 (4.2-5.4); Red Cell Distribution Width 12.6 % (11.5-14.5); White Blood Count 7.5 K/mm3 (4.5-10.0)
[2024-04-21 16:37] LABS: Alanine Aminotransferase 25 U/L (6-35); Albumin Level 4.3 g/dL (3.5-5.1); Alkaline Phosphatase 77 U/L (38-126); Anion Gap 12 mmol/L (4-12); Aspartate Amino Transferase 33 U/L (14-36); Bilirubin,Total 0.5 mg/dL (0.2-1.3); Blood Urea Nitrogen 17 mg/dL (7-17); Calcium 9.5 mg/dL (8.4-10.2); Carbon Dioxide 22 mmol/L (22-30); Chloride 105 mmol/L (98-107); Estimated Glomerular Filt Rate 45; Glucose 104 mg/dL (65-110); Potassium 4.3 mmol/L (3.4-5.0); Sodium 139 mmol/L (137-145)
[2024-04-24 14:38] LABS: Homocysteine 8.5 umol/L (<10.4)
== END 2024-04-21 13:59 | disposition home or self-care (01) ==
LOC: ANHLAB 13:59
PROVIDERS: PCP Physician Assistant; Visit Provider Internal Medicine Hematology & Oncology
DX: D73.5 Infarction of spleen (principal)
CPT/HCPCS: 36415; 80053; 83090; 85025

== ENCOUNTER 2024-05-01 11:24 | Outpatient (CLI) | payer OTHER, SELFPAY | END 2024-05-01 11:25 | disposition home or self-care (01) | LOC: MICIMG 11:25 | PROVIDERS: PCP Physician Assistant; Visit Provider Physician Assistant | DX: M79.622 Pain in left upper arm (principal) | CPT/HCPCS: 73060 ==

== ENCOUNTER 2024-05-18 12:49 | Outpatient (CLI) | payer OTHER, SELFPAY ==
--- NOTE | ~2024-05-18 | XR_ITS ---
Supine and upright views of the abdomen Clinical history: Right flank pain Findings: Bowel gas pattern is nonspecific. No evidence for obstruction or free air. No abnormal mass lesion or calcification is seen. Osseous structures are intact. Impression: No significant abnormality is seen. Reviewed, dictated and finalized at [facility]. Impression: No significant abnormality is seen.
== END 2024-05-18 12:50 | disposition home or self-care (01) ==
PROVIDERS: PCP Physician Assistant; Visit Provider Physician Assistant
DX: R10.9 Unspecified abdominal pain (principal)
CPT/HCPCS: 74018

== ENCOUNTER 2024-09-11 07:11 | Outpatient (CLI) | payer OTHER, SELFPAY ==
--- NOTE | ~2024-09-11 | MM_ITS ---
EXAMINATION: MM screening keturah BI w lary HISTORY: Screening TECHNIQUE: Craniocaudal and mediolateral oblique 3-D tomosynthesis images were obtained and synthetic 2-D images were generated. CAD analysis was submitted and interpreted. COMPARISON: Comparison to multiple prior studies sequentially, with oldest reviewed study dated 09/2021. BREAST PARENCHYMAL COMPOSITION: Dense: The breasts are heterogeneously dense, which may obscure small masses FINDINGS: There are benign breast calcifications. There is no evidence of suspicious mass, calcificat ion, or architectural distortion to suggest malignancy in either breast. There has been no suspicious interval change. IMPRESSION: 1. No mammographic evidence of malignancy. 2. Recommend routine screening mammography in one year. BI-RADS Category 2: Benign finding(s). Reviewed, dictated and finalized at location B.
--- OUTSIDE RECORDS SUMMARY | 2024-09-11 07:15 | XMS_ITS | Clinical Summary ---
[facility] Address [address] [place] [address] Care Team Providers Care Door Hanger Name Role Phone Jd Alaniz MD Primary Care Provider [phone] Allergies Active Allergy Reactions Criticality Noted Date [...] Encounters Date Type Department Care Team Description 08/15/2024 External Device Data STL ABSTRACTION Provider, Abstract 08/01/2024 External Device Data STL ABSTRACTION Provider, Abstract 07/20/2024 External Device Data STL ABSTRACTION Provider, Abstract 07/19/2024 External Device Data STL ABSTRACTION Provider, Abstract 07/18/2024 External Device Data STL ABSTRACTION Provider, Abstract [...] on file Legal Sex Female 5:09 AM STATISTICAL GENETICIST Gender Identity Not on file Sexual Orientation Not on file Last Filed Vital Signs Vital Sign Reading Time Taken Comments Blood Pressure 134/81 05/01/2024 2:33 PM STATISTICAL GENETICIST Pulse 74 05/01/2024 2:33 PM STATISTICAL GENETICIST Temperature 36.2 C (97.2 F) 05/01/2024 2:33 PM STATISTICAL GENETICIST Respiratory Rate 15 05/01/2024 2:33 PM STATISTICAL GENETICIST Oxygen Saturation 99% 05/01/2024 2:33 PM STATISTICAL GENETICIST Inhaled Oxygen Concentration - - Weight 122.2 kg (269 lb 6.4 oz) 05/01/2024 2:33 PM STATISTICAL GENETICIST Height 165.1 cm (5' 5) 09/18/2021 3:18 PM CDT Body Mass Index 44.83 09/18/2021 3:18 PM CDT Plan of Treatment Upcoming Encounters Date Type Department Care Team (Late st Contact Info) Description 05/08/2025 2:15 PM CDT Office Visit [facility] and H[facility]ology - [place] [address] [facility] [address] [place] [address] Gavin Jimenez MD [address] [facility] [address] [place] [address] Health Maintenance Due Date Last Done Comments Pre-Diabetes and Diabetes Screening 1980 DTAP/TDAP/TD VACCINES (1 - Tdap) 1999 HEPATITIS B VACCINES (1 of 3 - 19+ 3-dose series) 1999 HPV/Cotest (21-29) 2001 CERVICAL CANCER SCREENING 2010 HPV/Cotest (30-65) 2010 PAP SMEAR 2010 BREAST CANCER SCREENING 10/22/2021 10/22/2020 COVID-19 Vaccine ( season) 2023 05/02/2020, 04/04/2020 INFLUENZA VACCINE (#1) 2024 12/25/2019 HPV VACCINES Aged Out No longer eligi [...] (10/22/2020) Anatomical Region Laterality Modality Breast Bilateral Mammography Gavin Jimenez MD MAMMO ORDERABLES Final Result from Last 3 Months or Most Recently Relevant to Health Maintenance Insurance [facility] CHOICE [id number] Care Teams Door Hanger Relationship Specialty Start Date End Date Jd Alaniz MD [address] [place] [phone] PCP - General Internal Medicine 03/27/21
--- OUTSIDE RECORDS SUMMARY | 2024-09-11 07:15 | XMS_ITS | Encounter Summary ---
Author Organization [facility] Address [address] [place] [address] Care Team Providers Care Human Resources Manager Name Role Phone Kelsey Sapp Primary Care Provider Encounter Details Date Type Department Care Team (Late st Contact Info) Description 08/06/2018 Abstract SFL CONVERSION [address] [place] [address] , Generic Conversion, Social History Tobacco Use Types Packs/Day Years Used Date Smoking Tobacco: Never Assessed Comments Unknown Sex and Gender Information Value Date Recorded Sex Assigned at Not on file Legal Sex Female 5:50 PM MEDICAL GENETICIST Gender Identity Not on file Sexual Orientation Not on file documented as of this encounter Plan of Treatment Not on file documented as of this encounter Visit Diagnoses Not on filedocumented in this encounter Care Teams Human Resources Manager Relationship Specialty Start Date End Date Kelsey Sapp PA [facility] [place] [phone] PCP - General PHYSICIAN BROKERAGE MANAGER 01/05/24 documented as of this encounter
--- OUTSIDE RECORDS SUMMARY | 2024-09-11 07:15 | XMS_ITS | Patient Health Record ---
Author Organization [facility] Address [address] [place] [address] Care Team Providers Care Lead Net Software Developer Name Role Phone Marvin Blanco Primary Care Provider [phone] Reason For Referral No Information Immunizations Vaccine Route Administration Date Status Comme nts COVID-19 Moderna 1ST IM Intramuscular 04/04/2020 Administered EUA date 0. Screening reviewed and consent signed. Patient tolerated well. COVID-19 Moderna 2nd IM Intramuscular 05/02/2020 Administered EUA provided. Screening and consent reviewed and signed. Pt tolerated well. Plan Of Treatment No Information Insurance Providers Payer Name Payer Address Payer Phone Subscriber Number Group Number Insured Name Patient Relationship to Insured Coverage Start Date Coverage End Date [facility] [address] [place] [address] [id number] Lissette Guzman Self - patient is the insured 1
--- OUTSIDE RECORDS SUMMARY | 2024-09-11 07:15 | XMS_ITS | Encounter Summary ---
Author Organization [facility] Address [address] [place] [address] Care Team Providers Care Clinical Services Manager Name Role Phone Jd Alaniz MD Primary Care Provider [phone] Encounter Details Date Type Department Care Team (Latest Contact Info) Description 02/13/2006 Outpatient Historical HIS [facility] Bella, Zachery Amador MD NO ADDRESS ON FILE Other Malaise and Fatigue (Primary Dx) Social History Tobacco Use Types Packs/Day Years Used Date Smoking Tobacco: Never Assessed Comments Unknown Sex and Gender Information Value Date Recorded Sex Assigned at Not on file Legal Sex Female 5:09 AM BINDER OPERATOR Gender Identity Not on file Sexual Orientation Not on file documented as of this encounter Plan of Treatment Upcoming Encounters Date Type Department Care Team (Late st Contact Info) Description 05/08/2025 2:15 PM CDT Office Visit [facility] Oncology and Hematology - [place] [address] [facility] [address] [place] [address] Gavin Jimenez MD [address] [facility] [address] [place] [address] documented as of this encounter Procedures Procedure Name Priority Date/Time Associated Diagnosis Comments IRON PANEL Routine 02/13/2006 11:58 AM BINDER OPERATOR CBC WITH DIFFERENTIAL Routine 02/13/2006 11:58 AM BINDER OPERATOR CBC WITH DIFFERENTIAL Routine 02/13/2006 11:58 AM BINDER OPERATOR TSH Routine 02/13/2006 11:58 AM BINDER OPERATOR LIPID PANEL Routine 02/13/2006 11:58 AM BINDER OPERATOR COMPREHENSIVE METABOLIC PANEL Routine 02/13/2006 11:58 AM BINDER OPERATOR documented in this encounter Results * CBC WITH DIFFERENTIAL (02/13/2006 11:58 AM BINDER OPERATOR) NEUTROPHILS 63 45 - 70 % INTERFAC [...] K/uL INTERFACE SYSTEM 02/13/2006 11:5 8 AM BINDER OPERATOR Zachery Bella MD HEMATOLOGY ORDERABLES F inal Result INTERFACE SYSTEM Refer to clinic/hospital department * CBC WITH DIFFERENTIAL (02/13/2006 11:58 AM BINDER OPERATOR) WBC 7.2 4.0 - 9.8 K/uL INTERFACE [...] fL INTERFACE SYSTEM 02/13/2006 11:5 8 AM BINDER OPERATOR us Zachery Bella MD HEMATOLOGY ORDERABLES F inal Result INTERFACE SYSTEM Refer to clinic/hospital department * TSH (02/13/2006 11:58 AM BINDER OPERATOR) TSH 0.73 0.27 - 4.20 uU/mL INTERFACE SYSTEM 02/13/2006 11:5 8 AM BINDER OPERATOR Zachery Bella MD CHEMISTRY ORDERABLES Fi nal Result Performing Organization Address City/[facility]/ZIP Co de Phone Number INTERFACE SYSTEM Refer to clinic/hospital department * IRON PANEL (02/13/2006 11:58 AM BINDER OPERATOR) IRON 154 37 - 160 ug/dL INTERFACE SYSTEM TRANSFERRIN 329 200 - 360 mg/dL INTERFACE SYSTEM IRON % SATURATION 37 15 - 50 % INTERFACE SYSTEM TIBC 418 250 - 450 ug/dL INTERFACE SYSTEM 02/13/2006 11:5 8 AM BINDER OPERATOR us Zachery Bella MD CHEMISTRY ORDERABLES Fi nal Result Performing Organization Address City/[facility] Co de Phone Number INTERFACE SYSTEM Refer to clinic/hospital department * (ABNORMAL) LIPID PANEL (02/13/2006 11:58 AM BINDER OPERATOR) CHOLESTEROL 236(H) 100 - 199 mg/dL INTERFACE SYSTEM TRIGLYCERIDE 166(H) 10 - 149 mg/dL INTERFACE SYSTEM HDL 86(H) 40 - 59 mg/dL INTERFACE SYSTEM CHOL/HDL RATIO 2.7 2.0 - 5.0 INTER FACE SYSTEM LDL CALCULATED 117(H) <=99 mg/dL INTERFACE SYSTEM LIPID PANEL COMMENT See Below INTERFACE SYSTEM Comment: The adult ATP and pediatric NCEP classifications for lipids are available on the [facility] Intranet at: [email or web address] Wind [email or web address] medical [email or web address] - [email or web address] Select: Lab Policies and Procedures Select: Reference Ranges - Lipids 02/13/2006 11:5 8 AM BINDER OPERATOR us Zachery Bella MD CHEMISTRY ORDERABLES Fi nal Result Performing Organization Address City/[facility] Co de Phone Number INTERFACE SYSTEM Refer to clinic/hospital department * COMPREHENSIVE METABOLIC PANEL (02/13/2006 11:58 AM BINDER OPERATOR) GLUCOSE 85 65 - 99 mg/dL INTERFACE [...] and non- Americans is available on the [facility] Intranet at: [email or web address] Select: Lab Policies and Procedures Select: Reference Ranges - GFR 02/13/2006 11:5 8 AM BINDER OPERATOR Zachery Bella MD CHEMISTRY ORDERABLES Fi nal Result Performing Organization Address City/[facility] Co de Phone Number INTERFACE SYSTEM Refer to clinic/hospital department documented in this encounter Visit Diagnoses Diagnosis Other malaise and fatigue- Primary documented in this encounter Care Teams Clinical Services Manager Relationship Specialty Start Date End Date Jd Alaniz MD [address] [place] [address] PCP - General Internal Medicine 03/27/21 documented as of this encounter
--- OUTSIDE RECORDS SUMMARY | 2024-09-11 07:16 | XMS_ITS | Data Portability ---
Author Organization [facility] in Office Address [address] [place] [place] [address] Assessment Encounter Date Assessment Date Assessment LastModified by Organization Details LastModified Time 03/16/2024 03/16/2024 I spent 25 minutes of lvfo-xe-gsmp counselling and care coordination time with the [...] patient to review and make a decision. [email or web address] Not available 03/16/2024 19:57:07 Plan of Treatment [...] By Organization Details Last Modified Time 03/16/2024 [id number] Any requested follow-up visits are listed below in the Plan of Care section. Go directly to the [facility] receptionist scheduler at [email or web address] to book a time. Not available 03/16/2024 [...] questions. We focused on these items today: 1. MEDICATION Please see changes to your medication [...] requires fine-tuning and an individualized approach. We ll plan to adjust your therapy if needed [...] into your browser to access the video: [email or web address] Of course, if you have further questions after watching, please reach out and I will be happy to support you. Oral micronized progesterone (Prometrium) Continuous: -We prescribe progesterone to protect women with [...] within three months. Oral micronized progesterone (Prometrium) Continuous: -We prescribe progesterone to protect your uterus [...] you for trusting us with your care! [email or web address] Not available 03/16/2024 19:59:11 Reason for Referral None Reported. Problems Name Problem SNOMED Code Status Onset Date Resolution Date Notes Provider Name and Address Organization Details Recorded Time Fatigue 76579505 Active 20[place] [address] [facility] [address], [facility] 18:54:14 Menopausal symptom 64293894 Active 2024 [place] [address]252Elena Haley [facility] [address], [employer] 18:54:14 Obesity 631250127 Active 2024 [place] [address] [facility] [address], [facility] 18:54:25 Anxiety 49194502 Active 2024 [place] [address], [address], [facility] 18:54:36 Depressive disorder 55097246 Active 2024 [place]IO [place] [address], [address], [facility] 18:54:50 Hypertensive disorder 17517566 Active 2024 [place] [address] [place], [address], [facility] 5 18:55:01 Blood coagulation disorder 70553397 Active 2024 [place] [address] [place], [address], [facility] 5 18:55:34 Problem Notes None recorded. Medical Equipment None Reported. Allergies Allergen ID Allergen Name Allergen Category Reaction Reaction Severity Criticality Documentation Date Start Date Code Code System Note Provider Name and Address Organization Details Recorded Time 392653 Paxil medicatio n Not available Not available Not available 03/16/2024 32008 8 RxNorm Not Available [employer] - prod 5 18:04:29 238888 Zoloft medicatio n Not available Not available Not available 03/16/2024 73986 RxNorm Not Available [employer] - [employer] 5 18:04:29 298118 paroxetin e Not available rash Not available high 03/16/20242020 97916 RxNorm Not Available [employer] 5 18:04:31 607152 sertralin e medicatio n rash Not available high 03/16/20242020 51608 RxNorm Not Available [employer] 5 18:04:31 Medications Name Sig Start Date Stop Date [...] Updated DateTime 03/16/2024 172.72 cm 39.2 kg/m2 665124.[place] [address] [place], [address], [facility] 03/16/2024 19:56:28 Social History None recorded. Functional Status None recorded. Mental Status None recorded. Family History Relationship Description Onset Age of this Age Resolved Age Notes LastModified by Organization Details LastModified Time Paternal Grandmother Heart disease [email or web address] Not available 2024 18:53:16 Maternal Grandmother Heart disease [email or web address] Not available 2024 18:53:16 Maternal Grandfather Heart disease [email or web address] Not available 2024 18:53:16 Paternal Grandfather Heart disease [email or web address] Not available 2024 18:53:16 Medical History No [...] SNOMED-CT Code Diagnosis ICD10 Code Diagnosis Note [id number] OBDULIO TOLEDO NP Main Office [address] [place] [address] 03/16/2024 18:02:28 03/17/2024 04:15:34 Menopausal symptom 53770619 N95.1 - Discussed the patient's menopausal symptoms, [...] schedule follow-up appointmen ts as needed. Fatigue 31006334 R53.83 - Discussed the potential benefit of progestero ne in improving sleep quality, which may help alleviate fatigue.- Educated on the importance of physical activity in managing fatigue and overall health.- Advised to monitor for any changes in energy levels and to report any persistent or worsening fatigue. As per overall signs/symp toms, assessing thyroid function. Obesity 258087303 E66.9 - Discussed the importance of physical [...] Recorded Advance Directives Directive None Recorded Payers Insurance Date Sequence Insurance Name Policy Number Policy Garcia Covered Member ID Garcia Member ID Guarantor Name 04/05/2024 1 [facility] [id number] Lissette Guzman [id number] Lissette Guzman Notes Date Note Type Note [...] Location: Home Patient Location: Home Patient [place]: [place] [address] [place], [address], [facility] 2024 16:43:09 OBGyn Episode No OBEpisode recorded.
--- OUTSIDE RECORDS SUMMARY | 2024-09-11 07:16 | XMS_ITS | Continuity of Care Document ---
Author Organization [facility] Address [address] [facility] [address] [place] [address] Insurance Providers Payer Plan Claims Address Claims Phone Policy Number Group Number Relation Employer Guarantor Name Guarantor Guarantor Address [place] [id number] Self jose miguel montes 1980 [address], [place] [address] [facility] [address] [facility] [id number] Self jose miguel montes 1980 [address], [place] [address] BCBS OOS BCBS OOS [address] [address] tel:[phone] Marek montes 1980 [address], [place] [address] Problems Condition ICD9 code ICD10 code SNOMED code Start Date End Date S tatus Encounter for screening for other metabolic disorders Z13.228 Results No Results Allergies, adverse reactions, alerts No known allergies and adverse reactions Medications No administered medications reported Vital Signs No vital signs reported Social History No smoking Hx information available
--- OUTSIDE RECORDS SUMMARY | 2024-09-11 07:16 | XMS_ITS | Data Portability ---
Author Organization [facility], Main Office Address [address] [place] [address] Assessment No assessment recorded. Plan of Treatment Reminders Order Date Submit Date Provider Last Modified By Organization Details Last Modified Time Details Appointments None recorded. Lab insulin, serum 2022 023 [email or web address] 4 Not available 3 16:55:58 TSH + free T4, serum 2022 023 [email or web address] 4 Not available 3 16:55:57 T3, free, serum or plasma 2022 [...] 023 [email or web address] 4 Not available 3 16:55:58 erythrocyte sedimentati on rate by [email or web address] [...] 023 [email or web address] Jefry Doyle III, MD, [address] [facility], [place], [address], 4 08:45:29 Procedures None recorded. Surgeries None recorded. Imaging None recorded. Medication Orders verapamil ER (SR) 180 mg tablet,exte nded release 2022 023 MINERVA [facility] [place] [address] [place], [address], 3 16:40:11 duloxetine 30 mg capsule,del ayed release 2022 023 [email or web address] [facility], [place], [address], 3 23:34:25 Patient TargetsNo targets recorded. Patient InstructionsNo instructions recorded. 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 Pain of multiple joints Referring Physician: Kelsey Sapp, Internal Medicine, Encounter [...] Name and Address Organization Details Recorded Time Pain of multiple joints 12798525 Active 2022 Not Available [facility] 4 16:47:51 Migraine 23712205 Active 2022 Not Available [facility] 4 16:47:51 Aphthous ulcer of mouth 249602531 Active 2022 Not Available [facility] 4 16:47:51 Acute sinusitis 31357517 Active 2022 Not Available [facility] 4 16:47:51 Upper respiratory infection 95249981 Active 2023 POOJA Iraheta [address] [place] [address], [address] , [facility] 4 12:03:34 Notes:Some problems listed i n Document: #[id number] could not be added to this patient's chart. Please review this document and add these problems to the patient's chart manually as needed. Problem Notes None recorded. Procedures Surgical History Date Name Laterality Status Provider Name and Address Organization Details Recorded Time Ablation completed Lise Kelly RN [facility] 08/17/2022 09:20:54 Cyst Removal completed Lise Kelly RN [facility] 08/17/2022 09:21:04 Lumpectomy completed Lise Kelly RN [facility] 08/17/2022 09:21:15 Imaging Results None recorded. Procedure Notes None recorded. Medical Equipment None Reported. Allergies Allergen ID Allergen Name Allergen Category Reaction Reaction Severity Criticality Documentation Date Start Date Code Code System Note Provider Name and Address Organization Details Recorded Time 00254 Paxil medicatio n Not available Not available Not available 08/17/2022 31199 8 MATTHEW Norton, [facility] [employer] [facility] 3 09:12:44 62197 Zoloft medicatio n Not available Not available Not available 08/17/2022 27336 MATTHEW Norton, [facility] 3 09:12:51 Medications Name Sig [...] active Not Available Not Available Not Avai labanant topiramate 50 mg tablet Take 1 tablet [...] in Arterial blood by Pulse oximetry Systolic And Diastolic Provider Name and Address Organization Details Last Updated DateTime 3 009210. 86 g 46.6 kg/m2 165.1 cm 98.4 [degF] 66 /min 99 % 99 % 128/82 mm[Hg] Lise Kelly RN [facility] Balzo [facility] 3 16:31:29 Date Recorded Systolic And Diastolic Provider Name and Address Organization Details Last Updated DateTime 09/25/2022 120/80 mm[Hg] POOJA Iraheta [address], [facility] [address], [place], [address], [facility] ADMETA [facility] 09/25/2022 16:39:18 Date Recorded Body height Body temperature Body mass index (BMI) Body weight Respiratory rate Oxygen saturation Oxygen saturation in Arterial blood by Pulse oximetry Heart rate Systolic And Diastolic Provider Name and Address Organization Details Last Updated DateTime 3 165.1 cm 98.8 [degF] 46.8 kg/m2 120540. 46 g 16 /min 98 % 98 % 84 /min 140/82 mm[Hg] PARVEEN Gusman [facility] 15:54:38 Social History Question Answer Notes LastModified by Organizat ion Details LastModified Time Tobacco Smoking Status Former Smoker Lise Kelly RN null, [facility] 08/14/2022 16:29:02 What Is Your Level Of Caffeine Consumption? Moderate [email or web address] Information not available 08/14/2022 In The 14 Days Before Symptom Onset, Have You Had Close Contact With A Laboratory-confirm ed COVID-19 While That Case Was Ill? No [email or web address] Information n ot available 08/14/2022 In The 14 Days Before Symptom Onset, Have You Had Close Contact With A Person Who Is Under Investigation For COVID-19 While That Person Was Ill? No [email or web address] Information not available 08/14/2022 What Type Of Diet Are You Following? REGULAR [email or web address] Information n ot available 08/14/2022 Have There Been Any Changes To Your Family Or Social Situation? No [email or web address] Information no t available 08/14/2022 What Is The Fluoride Status Of Your Home? Unknown [email or web address] Information not available 08/14/2022 When Did You Quit Smoking? 6-10yearssinc elastcigarett e [email or web address] Information not available 08/14/2022 Do You Use Insect Repellent Routinely? No Information not available 08/14/2022 Have You Ever Been Counseled For Unhealthy Alcohol Use? No [email or web address] Information not available 08/14/2022 Do You Use Your Seat Belt Or Car Seat Routinely? Yes Information not available 08/14/2022 Do You Have Smoke And Carbon Monoxide Detectors In Your Home? Yes [email or web address] Information not available 08/14/2022 At What Age Did You Start Smoking Tobacco? 15 Information not available 08/14/2022 Are You Passively Exposed To Smoke? No [email or web address] Information no t available 08/14/2022 Are There Any Smokers In Your House? No [email or web address] Information not available 08/14/2022 Do You Use Sunscreen Routinely? Yes [email or web address] Information not available 08/14/2022 Have You Recently Traveled Abroad? No [email or web address] Information not available 08/14/2022 Do You Have Any Dietary Restrictions? No Information not available 08/14/2022 Sex: Unknown Functional Status Question Answer Note LastModified by Organizat ion Details LastModified Time Do you use any illicit or recreational drugs? No [email or web address] Information not available 08/14/2022 Do you or have you ever used any other forms of tobacco or nicotine? No [email or web address] Information not available 08/14/2022 What is your level of alcohol consumption? Occasional [email or web address] Information not available 08/14/2022 What is your exercise level? Occasional [email or web address] Information not available 08/14/2022 Mental Status Question Answer Note LastModified by Organization D etails LastModified Time Do you feel stressed (tense, restless, nervous, or anxious, or unable to sleep at night)? [id number] [email or web address] Information not available 08/14/2022 Family History Relationship Description Onset Age of this Age Resolved Age Notes LastModified by Organization Details LastModified Time Mother Rheumatoid arthritis [email or web address] Not available 09:13:44 Father Blood coagulation disorder [email or web address] Not available 09:14:01 Maternal Grandmother History of Hodgkin lymphoma Not available 09:14:30 Maternal Grandfather Myocardial infarction [email or web address] Not available 09:14:48 Paternal Grandmother Alzheimer's disease [email or web address] Not available 09:16:21 Brother Rheumatoid arthritis [email or web address] Not available 09:16:31 Brother Type 2 diabetes mellitus Not available 09:20:25 Medical History No medical history recorded. Gynecological History Statement/Question Response Current Control Method Ablation Obstetrics History GPAL:G 0 P 0 0 0 0 Past Encounters Encounter ID Performer Location Encounter Start Date Encounter Closed Date Diagnosis/Indication Diagnosis SNOMED-CT Code Diagnosis ICD10 Code Diagnosis Note [id number] POOJA Iraheta [facility] Anuel [place]ynn [address] [place] [address] 08/14/2022 16:09:21 08/14/2022 17:21:36 Adult health examination 197575242 Z00.01 new pt wellness completed Cholesterol screening 27 0152082 Z13.220 fasting lipids ordered Diabetes tyesha feliciano screening 142650296 Z13.1 screening diabetes ordered Long-term drug therapy 370855167 Z79.899 routine cbc, cmp, ua and b12 folate ordered Pain of mu ltiple joints 44075623 M25.50 screening autoimmune and joint pain panel Thyroid di sorder screening 760069077 Z13.29 full TFT panel w/abs Body mass index 40+ - severely obese 057099190 Z68.42 screening insulin [id number] POOJA Iraheta [facility] Internal Med Cord [address] [place] [address] 09/25/2022 15:41:28 09/25/2022 16:46:13 Pain of multiple joints 79355414 M25.50 labs have been negative range in RA, CCP and JEROME but ESR and CRP are mildly elevated. pt is quite symptomati c. will boost to cymbalta 90mg total daily to see if this helps with her pain. Also interested in referral to Rheumatolo gy to evaluate for any possibilit y of sub-clinic al autoimmune case. Migraine 78495774 G43.90 9 refill on verapamil ER 180mg daily. Health Concerns Section Related Observation LastModified by Organization Detai ls LastModified Time None Recorded Concern Status LastModified by Organization Details LastModified Time None Recorded Advance Directives Directive None Recorded Payers Insurance Date Sequence Insurance Name Policy Number Policy Garcia Covered Member ID Garcia Member ID Guarantor Name 09/28/2022 1 [facility] [id number] Lissette Guzman [id number] Lissette Guzman Notes Date Note Type Note Provider Name and Address Organization Details Recorded Time 023 text/ht ml Generic HPI TemplateReported bypatient.Notes:multiple joint pain never really explored or evaluated by last PCP.HeadacheReported bypatient.Notes:stable on medicationsHypertensionReported bypatient.Notes:[facility] POOJA Iraheta [address] [facility], [facility] [address], [place], [address], [facility] 08/28/2022 20:58:49 023 text/ht ml Generic HPI TemplateReported bypatient.Notes:Pt is here to f/u on her labs. They are in her chart. POOJA Iraheta [address] [facility] [address], [place], [address], [facility] [place] [employer] 09/25/2022 23:40:45 OBGyn Episode No OBEpisode recorded.
--- OUTSIDE RECORDS SUMMARY | 2024-09-11 07:16 | XMS_ITS | Clinical Summary ---
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 Gender Identity Not on file Sexual Orientation Not on file Obstetrics History Last Filed Vital Signs Vital Sign Reading Time Taken Comments Blood Pressure 126/84 01/19/2022 10:18 AM LAP MACHINE OPERATOR Pulse 71 01/19/2022 10:18 AM LAP MACHINE OPERATOR Temperature 36.9 C (98.4 F) 04/25/2019 1:05 PM LAP MACHINE OPERATOR Respiratory Rate 16 04/25/2019 3:31 PM LAP MACHINE OPERATOR Oxygen Saturation 100% 01/19/2022 10: 18 AM LAP MACHINE OPERATOR Inhaled Oxygen Concentration - - Weight 129.4 kg (285 lb 3.2 oz) 022 10:18 AM LAP MACHINE OPERATOR Height 165.1 cm (5' 5) 01/19/2022 10:1 8 AM LAP MACHINE OPERATOR Body Mass Index 47.46 01/19/2022 10:18 AM LAP MACHINE OPERATOR Plan of Treatment Health Maintenance Due Date Last Done Comments Breast Cancer Screening-Mammogram 1980 Cervical Cancer Screening 1980 Depression Screening 1980 Hepatitis C Screening 1980 Varicella Vaccines (1 of 2 - 13+ 2-dose series) 1993 DTaP/Tdap/Td Vaccine (5 - Tdap) 08/01/1994 07/31/1994, 06/07/1985, 10/02/1981, Additional history exists Hepatitis B Screening 1998 Regular Well Visit/Exam 18-64 1998 Influenza Vaccine (Season Ended) 2024 HPV Vaccines Aged Out No longer eligi ble based on patient's age to complete this topic Pneumococcal vaccine <65 Aged Out No longer eligible based on patient's age to complete this topic [facility] [employer] [place] [employer] [facility] Care Teams Nanny Caregiver Relationship Specialty Start Date End Date Jd Alaniz MD PCP - General 05/25/18
--- OUTSIDE RECORDS SUMMARY | 2024-09-11 07:16 | XMS_ITS | Referral Summary ---
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 Gender Identity Not on file Sexual Orientation Not on file Last Filed Vital Signs Vital Sign Reading Time Taken Comments Blood Pressure 126/84 01/19/2022 10:18 AM AIR TECHNICIAN Pulse 71 01/19/2022 10:18 AM AIR TECHNICIAN Temperature 36.9 C (98.4 F) 04/25/2019 1:05 PM AIR TECHNICIAN Respiratory Rate 16 04/25/2019 3:31 PM AIR TECHNICIAN Oxygen Saturation 100% 01/19/2022 10: 18 AM AIR TECHNICIAN Inhaled Oxygen Concentration - - Weight 129.4 kg (285 lb 3.2 oz) 022 10:18 AM AIR TECHNICIAN Height 165.1 cm (5' 5) 01/19/2022 10:1 8 AM AIR TECHNICIAN Body Mass Index 47.46 01/19/2022 10:18 AM AIR TECHNICIAN Plan of Treatment Not on file Insurance [facility] Member Subscriber Plan / Payer (Ef fective 2018-Present) Name:Lissette Guzman Relation to Subscriber:Self Name:Lissette Guzman Payer ID:[id number] (NAIC) Type:HAILEE SANDOVAL Address: [address] [place] [id number] [place] [employer] [facility] Care Teams Windows Systems Architect Relationship Specialty Start Date End Date Jd Alaniz MD PCP - General 05/25/18
--- OUTSIDE RECORDS SUMMARY | 2024-09-11 07:16 | XMS_ITS | Clinical Summary ---
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 Gender Identity Not on file Sexual Orientation [...] Vaccine ( season) 2023 01/30/2021, 05/02/2020, 04/04/2020 DTaP, Tdap and Td Vaccines (6 - Td or Tdap) 09/30/2030 09/30/2020, 07/31/1994, 06/07/1985, Additional history exists HPV Vaccines Aged Out No longer eligi ble based on patient's age to complete this topic Meningococcal B Vaccine Aged Out No l onger eligible based on patient's age to complete this topic Meningococcal Vaccine Aged Out No peter usman eligible based on patient's age to complete this topic Pneumococcal Vaccine: Pediatrics (0 to 5 Years) and At-Risk Patients (6 to 49 Years) Aged Out No longer eligible based on patient's age to complete this topic RSV Immunizations Under 20 Months Aged Out No longer eligible based on patient's age to complete this topic Insurance [employer] Care Teams Bulb Tester Relationship Specialty Start Date End Date Kelsey Sapp PA [address] [place] [phone] PCP - General PHYSICIAN PRIMARY CLINICIAN 01/05/24
--- OUTSIDE RECORDS SUMMARY | 2024-09-11 07:16 | XMS_ITS | Data Portability ---
Author Organization [facility] SIBeau Address [address] [place] [address] Care Team Providers Care Merchandise Buyer Name Role Phone EDUARDO MCCLELLAN Primary Care Provider WINNIE Townsend Nuisance Wildlife Trapper Assessment Encounter Date Assessment Date Assessment LastModified by Organization Details LastModified Time 04/27/2023 04/27/2023 Mammogram due may 2023 from gyne Not available 04/27/2023 15:39:48 11/04/2023 11/04/2023 Mammogram due may 2023 from gyne Not available 11/04/2023 15:11:07 05/01/2024 05/01/2024 Mammogram due may 2023 from gyne Not available 05/01/2024 11:52:14 Plan of Treatment Reminders Order Date Submit Date Provider Last Modified By Organization Details Last Modified Time Details Appointments ANY 15 2024 03:30P POOJA Lew Not available Not available Not available Lab TSH + free T4, serum 2024 025 [employer] [facility], [address], [place], [address], 05/15/2024 09:50:16 lipid panel, serum 2024 025 [employer] [facility], [address], [place], [address], 05/15/2024 09:50:16 erythrocy te sedimenta tion rate by jwergre n method 2024 025 [facility] [employer] [facility], [address], [place], [address], 05/16/2024 10:25:58 C-reactiv e protein, quantitat marta, serum or plasma 2024 025 [facility] [employer] [facility], [address], [place], [address], 05/16/2024 10:25:47 HbA1c (hemoglob in A1c), blood 2024 025 [place] [employer] [facility], [address], [place], [address], 05/15/2024 09:50:16 influenza virus A + B + SARS-CoV- 2 (COVID19) Ag panel, rapid IA, upper respirato ry specimen 2023 024 [email or web address] In-Office Order, Internal Use Only DO Not Attach Compendium DO Not Attach Compendium, Do Not Delete/merge, [id number] 02/22/2024 12:08:21 rapid strep group A, throat 2023 024 [email or web address] In-Office Order, Internal Use Only DO Not Attach Compendium DO Not Attach Compendium, Do Not Delete/merge, [id number] 02/22/2024 12:08:21 TSH + free T4, serum 2023 024 [place] [facility], [address], [place], [address], 05/11/2023 13:07:09 lipid panel, serum 2023 024 [email or web address] [employer] [facility], [address], [place], [address], 05/27/2023 16:22:12 HbA1c (hemoglob in A1c), blood 2023 024 [email or web address] [employer] [facility], [address], [place], [address], 05/27/2023 14:09:46 CBC w/ auto diff 2023 024 [email or web address] [facility], [address], [place], [address], 05/27/2023 16:22:12 CMP, serum or plasma 2023 024 [place] [employer] [facility], [address], [place], [address], 05/11/2023 13:07:09 vitamin B12 + folate, serum or blood 2023 024 [email or web address] [facility], [address], [place], [address], 05/27/2023 16:22:12 iron + TIBC + ferritin, serum 2023 024 [email or web address] [facility], [address], [place], [address], 05/27/2023 16:22:12 vitamin D, 25-hydrox y, total, serum 2023 024 [place] [employer] [facility], [address], [place], [address], 05/04/2023 23:30:26 Referral None recorded. Procedures None recorded. Surgeries None recorded. Imaging XR, humerus, 2 or more view [address] [facility], [address], [place] [address], [place], [address], 05/02/2024 14:00:07 home sleep study 2023 024 [facility] ([facility]), [address], [place], [address], 06/03/2023 12:11:08 Medication Orders duloxetin e 60 mg capsule,d elayed release 2024 [id number], [address], [place], [place], [id number], 05/01/2024 12:08:43 topiramat e 50 mg tablet 2024 025 [facility] #[id number], [address], [place], [place], [id number], 05/01/2024 12:08:41 amoxicill in 875 mg-potass ium clavulana te 125 mg tablet 2023 025 [facility] #[id number], [address], [place], [place], [id number], 05/01/2024 11:45:23 fluconazo le 150 mg tablet 2023 025 [facility] #[id number], [address], [place], [place], [phone], 05/01/2024 11:45:39 Ubrelvy 100 mg tablet 2023 024 [facility], [address] [place], [address], 11/04/2023 15:32:43 amoxicill in 875 mg-potass ium clavulana te 125 mg tablet 2023 024 [email or web address] [facility], [address] [place], [address], 05/01/2024 11:44:39 fluconazo le 150 mg tablet 2023 024 [email or web address] [facility], [address] [place], [address], 05/01/2024 11:44:45 valacyclo vir 1 gram tablet 2023 024 [facility], [address] [place], [address], 04/27/2023 15:42:30 Patient TargetsNo targets recorded. Patient Instructions Encounter Date Encounter Id Patient Instructions Last Modified By Organization Details Last Modified Time 11/04/2023 [id number] A healthy lifestyle: care instructions Not available 11/27/2023 21:33:39 05/01/2024 [id number] A healthy lifestyle: care instructions Not available 05/01/2024 12:05:33 Reason for Referral None Reported. Results Created [...] DO Not Attach Compendium, Do Not Delete/merge, [id number] 02/22/2024 10:17:43 02/22/20 24 02/22/2024 influ mechelle virus A + B + SARS- CoV-2 (COVI D19) Ag panel , rapid IA, upper respi rator y speci men Flu B negati ve Not Available In-Office Order Internal Use Only DO Not Attach Compendium DO Not Attach Compendium, Do Not Delete/merge, [id number] 02/22/2024 10:17:43 02/22/20 24 02/22/2024 influ mechelle virus A + B + SARS- CoV-2 (COVI D19) Ag panel , rapid IA, upper respi rator y speci men Rapid SARS CoV 2 Ag, QL IA, respiratory specimen negati ve Not Available In-Office Order Internal Use Only DO Not Attach Compendium DO Not Attach Compendium, Do Not Delete/merge, [id number] 02/22/2024 10:17:43 02/22/2002/22/2024 rapid strep group A, throa t Strep negati ve Not Available In-Office Order Internal Use Only DO Not Attach Compendium DO Not Attach Compendium, Do Not Delete/merge, [id number] 02/22/2024 10:17:43 05/25/1905/24/2023 sleep study , diagn ostic * No observ ation record ed. [email or web address] [facility] [address], [place], [address], 11/27/2023 21:33:49 05/03/1905/01/2024 XR, humer us, 2 or more view No observ ation record ed. [facility] [address], [place], [address], 05/08/2024 09:07:00 06/13/1905/18/2024 XR, kidne y + urete r + bladd er No observ ation record ed. [facility] [address], [place], [address], 06/13/2024 13:43:07 Result Notes None recorded. Problems Name Problem SNOMED Code Status Onset Date Resolution Date Notes Provider Name and Address Organization Details Recorded Time Body mass index 40+ - severely obese 764683796 Active 2023 Billy Stroud MA null, [place] - [place] 4 14:39:31 Obesity 074117007 Active 2023 POOJA Iraheta Attn: Ana Laura lopez,[address] [facility], [place], [address], [facility] - [facility] 4 21:31:43 Migraine 45025153 Active 2023 POOJA Iraheta Attn: Ana Laura lopez,[address] [facility], [place], [address], [facility] - SI 4 21:32:14 Gastroesoph ageal reflux disease without esophagitis 596805141 Active 2023 POOJA Iraheta Attn: Ana Laura lopez,[address] [place], [address], [facility] - SI 4 21:33:12 Long-term drug therapy Active 2023 POOJA Iraheta Attn: Gangamerritt lopez,[address] [place], [address], [facility] - [facility] 4 21:33:36 Sleep apnea 66070971 Active 2024 POOJA Iraheta Attn: Ana Laura lopez,[address] [place], [address], [facility] - [facility] 5 18:08:10 Pain of multiple joints 07315610 Active 2024 POOJA Iraheta Attn: Gangamerritt lopez,[address] [place], [address], [facility] - [facility] 5 18:09:01 Pain of left upper arm 7104362210297 04 Active 2024 POOJA Iraheta Attn: Ana Laura lopez,[address] [place], [address], [facility] - SI 5 18:09:02 Problem Notes None recorded. Procedures Surgical History Date Name Laterality Status Provider Name and Address Organization Details Recorded Time abrasion procedure completed Billy Stroud MA [place] - [place] 04/27/2023 15:14:04 Imaging Results None recorded. Procedure Notes None recorded. Medical Equipment None Reported. Allergies No known drug allergies Medications Name Sig Start Date Stop Date Status Note LastModified by Organization Details LastModified Time azithromyci n 250 mg tablet TAKE 2 TABLETS (500 MG) BY ORAL ROUTE ONCE DAILY FOR 1 DAY THEN 1 TABLET (250 MG) BY ORAL ROUTE ONCE DAILY FOR 4 DAYS 11/03 completed Not Available Not Available Not Available fluconazole 150 mg tablet TAKE 1 TABLET BY MOUTH FOR 1 DOSE. MAY REPEAT LATER DATE IF NEEDED. 05/01 completed Not Available Not Available Not Available benzonatate 200 mg capsule 04/27 completed Not Available Not Available Not Available valacyclovi r 1 gram tablet TAKE 2 TABLETS BY MOUTH EVERY 12 HOURS FOR 1 DAY NEEDED active Not Available Not Available No t Available prednisone 20 mg tablet Take 2 tablets every day by oral route for 5 days. 11/03 completed Not Available Not Available Not Available verapamil ER (SR) 180 mg tablet,exte nded release TAKE 1 TABLET BY MOUTH EVERY DAY active Not Available Not Available No t Available clobetasol 0.05 % topical cream APPLY LIBERALLY TOPICALLY TO THE AFFECTED AREA TWICE DAILY NEEDED active Not Available Not Available No t Available valacyclovi r 500 mg tablet 11/03 completed Not Available Not Available Not Available triamcinolo ne acetonide 0.1 % topical cream APPLY LIBERALLY TOPICALLY TO THE AFFECTED AREA TWICE DAILY FOR 4 WEEKS NEEDED active Not Available Not Available No t Available amoxicillin 875 mg tablet 04/27 completed Not Available Not Available Not Available neomycin-po lymyxin-dex ameth 3.5 mg/mL-10,00 0 unit/mL-0.1 % eye drops 04/27 completed Not Available Not Available Not Available methylpredn isolone 4 mg tablets in a dose pack 04/27 completed Not Available Not Available Not Available amoxicillin 875 mg-potassiu m clavulanate 125 mg tablet TAKE 1 TABLET BY MOUTH EVERY 12 HOURS 05/01 completed Not Available Not Available Not Available esomeprazol e magnesium 20 mg capsule,del ayed release Take 1 capsule every day by oral route. 2023 active Not Available Not Available Not Avai lable oxycodone 5 mg tablet 04/27 completed Not Available Not Available Not Available topiramate 50 mg tablet TAKE 1 TABLET BY MOUTH TWICE DAILY active Not Available Not Available No t Available duloxetine 30 mg capsule,del ayed release TAKE 1 CAPSULE BY MOUTH EVERY DAY active Not Available Not Available No t Available duloxetine 60 mg capsule,del ayed release TAKE 1 CAPSULE BY MOUTH EVERY DAY active Not Available Not Available No t Available aspirin 81mg active Not Available Not Avail able Not Available ferrous gluconate 324 mg (38 mg iron) tablet Take 1 tablet every day by oral route with meal(s). 11/03 completed Not Available Not Available Not Available cholecalcif pham (vitamin D3) 1,250 mcg (50,000 unit) capsule Take 1 capsule every week by oral route. 05/01 completed Not Available Not Available Not Available Ubrelvy 100 mg tablet TAKE 1 TAB BY MOUTH AT ONSET OF MIGRAINE. MAY REPEAT IN 2 HOURS IF NEEDED active Not Available Not Available No t Available Vitals Date Recorded Body weight Heart rate Respiratory rate Body temperature Oxygen saturation Oxygen saturation in Arterial blood by Pulse oximetry Body mass index (BMI) Body height Systolic And Diastolic Provider Name and Address Organization Details Last Updated DateTime 4 173633. 27 g 80 /min 18 /min 97.3 [degF] 98 % 98 % 46.1 kg/m2 165.74 cm 119/79 mm[Hg] Billy Stroud MA [facility] 4 15:17:52 Date Recorded Body height Body mass index (BMI) Body weight Respiratory rate Oxygen saturation Oxygen saturation in Arterial blood by Pulse oximetry Heart rate Systolic And Diastolic Provider Name and Address Organization Details Last Updated DateTime 5 165.74 cm 44.4 kg/m2 691910. 35 g 18 /min 98 % 98 % 80 /min 126/82 mm[Hg] Billy Stroud MA [facility] 5 11:48:45 Date Recorded Body height Body mass index (BMI) Body weight Respiratory rate Oxygen saturation Oxygen saturation in Arterial blood by Pulse oximetry Heart rate Systolic And Diastolic Provider Name and Address Organization Details Last Updated DateTime 4 165.74 cm 42.9 kg/m2 969896. 3 g 18 /min 98 % 98 % 79 /min 122/82 mm[Hg] Billy Stroud MA [facility] 4 14:41:28 Date Recorded Body temperature Provider Name a wy Address Organization Details Last Updated DateTime 02/22/2024 98.6 [degF] POOJA Iraheta Attn: Accounting,[address] [place], [address], [facility] 03/01/2024 00:21:38 Date Recorded Body height Body mass index (BMI) Body weight Respiratory rate Heart rate Oxygen saturation Oxygen saturation in Arterial blood by Pulse oximetry Systolic And Diastolic Provider Name and Address Organization Details Last Updated DateTime 4 165.74 cm 43.6 kg/m2 766403. 39 g 18 /min 78 /min 96 % 96 % 116/80 mm[Hg] Billy Stroud MA [place] - [facility] 4 09:41:01 Social History Question Answer Notes LastModified by Organizat ion Details LastModified Time Tobacco Smoking Status Former Smoker Billy Stroud MA null, [facility] 04/27/2023 15:13:38 Do You Have An Advance Directive? No Information not available 11/04/2023 Are You Blind Or Do You Have [...] Date Of Your Most Recent Tobacco Screening? 05/01/2024 Information not available 05/01/2024 What Is Your Current Pack Years? 10packyears [...] What Date Was Tobacco Cessation Counseling Provided? 05/01/2024 Information not available 05/01/2024 How Many Years Have You Smoked Tobacco? 10 Information not available 04/27/2023 Sex: Unknown Functional Status Question Answer Note LastModified by Organizat ion Details LastModified Time Do you use any illicit or recreational drugs? No Information not available 04/27/2023 Do you or have you ever used any other forms of tobacco or nicotine? No Information not available 04/27/2023 What is your level of alcohol consumption? None Information not available 04/27/2023 Are you currently employed? Yes Information not available 05/01/2024 Are you able to care for yourself? Yes Information not available 11/04/2023 What is your exercise level? [...] History Condition Response Coronary Artery Disease N High Blood Pressure N Atrial Fibrillation N Kidney or Bladder Problems N Thyroid Problems N GI Problems N Depression Y COPD N Blood Clots Y Skin Problems N Anemia N Heart Attack ([place]) N Anxiety Disorder Y Diabetes N Muscle, Joint, or Bone Problems N Seizures/Epilepsy N Acid Reflux (GERD) N Cancer N Stroke N Asthma N Allergies N High Cholesterol N Hepatitis N Liver Disease N Headaches N Heart Failure N Osteoporosis N Gynecological History Statement/Question Response Menses Monthly Y Current Control Method None Flow Light LMP Approximate Obstetrics History GPAL:G 0 P 0 0 0 0 Type Value Multiple Births 0 Induced 0 Spontaneous 0 Living 0 Ectopics 0 Total 0 Immunizations Vaccine Type Date Status Note Provider Nam e and Address Organization Details Recorded Time MMR 2 completed K[place] Tr[place] [facility] 02/22/2024 09:38:52 MMR 1 [place] [facility] 02/22/2024 09:38:52 COVID-19, mRNA, LNP-S, PF, 100 mcg/0.5mL dose or 50 mcg/0.25mL dose 1 [place] [facility] 02/22/2024 09:38:52 COVID-19, mRNA, LNP-S, PF, 100 mcg/0.5mL dose or 50 mcg/0.25mL dose 1 [place] [facility] 02/22/2024 09:38:52 COVID-19, mRNA, LNP-S, PF, 100 mcg/0.5mL dose or 50 mcg/0.25mL dose 1 [place] [facility] 02/22/2024 09:38:52 Tdap 1 completed Billy Str[place] [facility] 02/22/2024 09:38:52 DTP 6 [place] [facility] 02/22/2024 09:38:52 DTP 1 [place] [facility] 02/22/2024 09:38:52 DTP 1 [place] [facility] 02/22/2024 09:38:52 DTP 2 [place] [facility] 02/22/2024 09:38:52 OPV 6 [place] [facility] 02/22/2024 09:38:52 OPV 1 [place] [facility] 02/22/2024 09:38:52 OPV 1 [place] [facility] 02/22/2024 09:38:52 OPV 2 [place] [facility] 02/22/2024 09:38:52 Td (adult), 2 Lf tetanus toxoid, preservative free, adsorbed 5 [place] [facility] 02/22/2024 09:38:52 Influenza, split virus, quadrivalent, PF 0 [place] [facility] 02/22/2024 09:38:52 Past Encounters Encounter ID Performer Location Encounter Start Date Encounter Closed Date Diagnosis/Indication Diagnosis SNOMED-CT Code Diagnosis ICD10 Code Diagnosis Note [id number] Greg Mahajan MD [facility] [address] [place] [address] 04/27/2023 14:44:03 04/27/2023 16:16:22 Herpes labialis 3939598 B00.1 refill on valtrex 1gm as directed PRN Thyroid di sorder screening 253969764 Z13.29 routine thyroid panel labs are due. Diabetes m ellitus screening 861419824 Z13.1 a1c screening due. Fatigue 27845878 R53.83 pt biggest c/o is fatigue. check full fatigue lab screening panel. Cholesterol screening 27 6293184 Z13.220 fasting lipid panel ordered Adult heal th examination 097097564 Z00.01 annual wellness completed Sleep apnea 18133211 G47 .30 refer for home sleep study. Cough 37458689 R05.9 ? related to reflux. boost to nexium 40mg daily. taking two otc. Migraine 82888405 G43.90 9 stable on topiramate and verapamil Long-term drug therapy 974985356 Z79.086 [id number] Greg Mahajan MD [facility] [place] [address] [place] [address] 11/04/2023 14:05:33 11/04/2023 15:49:31 Body mass index 40+ - severely obese 262713657 Z68.41 BMI is 42.9 Migraine 50762145 G43.90 9 stable on topiramate and verapamil. P.r.n. trial script of Ubrelvy 100 mg given if insurance will authorize Sleep apnea 62474386 G47 .30 uses oral appliance for treatment. Long-term drug therapy 272628798 Z79.899 Labs are up-to-date Acute sinusitis 51087190 J01.90 Start Augmentin therapy course and empiric fluconazol e treatment for acute sinusitis found on exam today Obesity 760278072 E66.8 discussed healthy diet, exercise, controllin g carbohydra anahi and added sugars in the diet Gastroesop hageal reflux disease without esophagitis 832192750 K21.9 Patient is stable on Nexium 20 mg daily [id number] Greg Mahajan MD [facility] [place] [address] [place] [address] 02/22/2024 09:27:33 02/22/2024 10:51:20 Acute right otitis media 843842325 H66.91 Start Augmentin 875 twice daily for 7 days Preventive procedure 169 915253 Z29.9 Empiric fluconazol e course given Sore throat 380739296 J0 2.9 Influenza and COVID and strep negative on swab [id number] Greg Mahajan MD [facility] [place] [address] [place] [address] 05/01/2024 11:04:48 05/01/2024 12:31:16 Migraine 45876375 G43.909 stable on topiramate and verapamil. P.r.n. trial script of Ubrelvy 100 mg given if insurance will authorize Body mass index 40+ - severely obese 260808743 Z68.41 BMI is 44.4 Morbid obesity 708635603 E66.01 Sleep apnea 95805134 G47 .[address] it's working out ok. not great but gets adjusted when needed. Gastroesop hageal reflux disease without esophagitis 343120567 K21.9 Patient is stable on Nexium 20 mg daily two daily. Long-term drug therapy 546770215 Z79.899 Refill given on duloxetine 60 mg daily Adult heal th examination 307201508 Z00.01 annual wellness completed Herpes labialis 9195774 B00.1 refill on valtrex 1gm as directed PRN Thyroid di sorder screening 562470953 Z13.29 routine thyroid panel labs are due. Diabetes m ellitus screening 166959472 Z13.1 a1c screening due. Cholesterol screening 27 9599482 Z13.220 fasting lipid panel ordered Pain of le ft upper arm 5897578810 95192 M79.622 Patient reports some generalize d vague pain in her left upper arm. We will order a baseline x-ray of the humerus. Pain of mu ltiple joints 25970735 M25.50 Screening sed rate and C-reactive protein ordered Health Concerns Section Related Observation LastModified by Organization Detai ls LastModified Time None Recorded Concern Status LastModified by Organization Details LastModified Time None Recorded Advance Directives Directive N: Payers Insurance Date Sequence Insurance Name Policy Number Policy Garcia Covered Member ID Garcia Member ID Guarantor Name 05/29/2024 1 [facility] [id number] Lissette Guzman [id number] Lissette Guzman Notes Date Note Type Note [...] Prior opinionPCP POOJA Iraheta Attn: Accounting,[address] [place], [place], [address] [place] [address] 05/02/2023 20:21:20 11/04/2023 text/html FatigueReported bypatient.Quality:cont inuous [...] Prior opinionPCP POOJA Iraheta Attn: Accounting,[address] [place], [place], [address] [place] [address] 11/27/2023 21:34:11 02/22/2024 text/html Upper Respirator y SymptomsReported bypatient.Location:hea d; throat Quality:productive cough;congested Severity:moderate Onset/Timing:sudden Context:no foreign travel; non-smoker;sick contact Modifying Factors:OTC medication Associated Symptoms:yellow sputum;fatigue;sore throat POOJA Iarheta Attn: Accounting,[address] [place], [place], [address] [place] [address] 03/01/2024 00:23:16 05/01/2024 text/html FatigueReported bypatient.Quality:cont inuous Severity:normal sleep patterns; [...] during the day;irritability Prior Tests:thyroid panel Prior opinionPCPReflux/GERDR eported bypatient.Notes:For acid reflux management patient is taking esomeprazole 20 mg daily Underlying migraine history, patient is taking topiramate 50 mg twice daily with Ubrelvy 100 mg daily and verapamil ER 180 mg daily POOJA Iraheta Attn: Accounting,[address] [place], [address], [facility] - [facility] 05/27/2024 18:09:53 OBGyn Episode No OBEpisode recorded.
== END 2024-09-11 07:12 | disposition home or self-care (01) ==
LOC: ANHIMG 07:13
PROVIDERS: PCP Physician Assistant; Visit Provider Obstetrics & Gynecology
DX: Z12.31 Encounter for screening mammogram for malignant neoplasm of breast (principal)
CPT/HCPCS: 77063; 77067